=== PATIENT | female | born 1980 | race Native Hawaiian/Other Pacific Islander ===

== ENCOUNTER 2016-10-08 19:09 | Inpatient (IN) | payer OTHER ==
[2016-10-08] MEDS ORDERED: NORMAL SALINE 1000 ML 2,000 ML IV ONE (19:23)
[2016-10-08] MEDS ORDERED: KETOROLAC TROMETHAMINE INJ/PF 30 MG/1 ML SDV IV ONE (19:36)
--- NOTE | 2016-10-08 19:36 | ER Document Report ---
ED Respiratory Problem - General Stated Complaint: FEVER Time seen by provider: 19:36 Mode of Arrival: Medic Information source: Patient TRAVEL OUTSIDE OF THE [place] IN LAST 30 DAYS: No - HPI Patient complains to provider of: Cough, Short of breath Onset: Yesterday Duration: Worse/persistent Quality of pain: Achy Severity: Mild Pain Level: 2 Context: Hx asthma Short of Breath: Moderate Chest pain/discomfort: Tightness Cough: Productive Sputum amount: Small Sputum color: Yellow Sputum consistency: Mucoid Associated symptoms: Chills, Congestion, Cough, Fever, Short of breath Similar symptoms previously: Yes Notes: Patient is a 36-year-old female who presents to the emergency room via EMS for respiratory difficulty, productive cough 2 days with fever and body aches, family members report that she appears confused at times, patient has a history of lymphedema with bilateral lower extremities quite swollen and erythematous, she does report some increased pain and swelling with oozing wounds to her left knee - Related Data Allergies/Adverse Reactions: No Known Drug Allergies Allergy (Verified 03/10/16 08:43) Home Medications: Current Home Medications Eluxadoline [Viberzi] 75 mg PO DAILY 10/08/16 [History] Metformin HCl [Metformin HCl ER] 500 mg PO DAILY 10/08/16 [History] Morphine Sulfate [Morphine Ir 15 mg Tablet] 15 mg PO TID 10/08/16 [History] Nortriptyline HCl [Pamelor 25 Mg Capsule] 25 mg PO QHS 10/08/16 [History] Triamcinolone 1 applic TOP TID 10/08/16 [History] Zolpidem Tartrate [Ambien Cr] 12.5 mg PO QHS 10/08/16 [History] Past Medical History - General Information source: Patient, Emergency Med Personnel - Social History Smoking Status: Unknown if Ever Smoked Family History: Reviewed & Not Pertinent - Past Medical History Cardiac Medical History: Denies: Hx Coronary Artery Disease, Hx Heart Attack, Hx Hypertension Pulmonary Medical History: Reports: Hx Asthma Denies: Hx Bronchitis, Hx COPD, Hx Pneumonia Neurological Medical History: Denies: Hx Cerebrovascular Accident, Hx Seizures Musculoskeltal Medical History: Denies Hx Arthritis Past Surgical History: Reports: Hx Cholecystectomy. Denies: Hx Hysterectomy - Immunizations Hx Diphtheria, Pertussis, Tetanus Vaccination: Yes Hx Pneumococcal Vaccination: 05/22/12 Review of Systems - Review of Systems Constitutional: Fever EENT: See HPI Cardiovascular: No symptoms reported Respiratory: See HPI Gastrointestinal: No symptoms reported Genitourinary: No symptoms reported Female Genitourinary: No symptoms reported Musculoskeletal: See HPI Skin: See HPI Hematologic/Lymphatic: No symptoms reported Neurological/Psychological: No symptoms reported -: Yes All other systems reviewed and negative Physical Exam - Vital signs Vitals: Temp 103.5 F H 10/08/16 19:15 Interpretation: Hypotensive, Tachycardic, Febrile - General General appearance: Alert In distress: Mild - HEENT Head: Normocephalic, Atraumatic Eyes: Normal Conjunctiva: Normal Extraocular movements intact: Yes Eyelashes: Normal Pupils: PERRL Pharynx: Normal Neck: Normal - Respiratory Respiratory status: No respiratory distress Chest status: Nontender Breath sounds: Rhonchi Chest palpation: Normal - Cardiovascular Rhythm: Regular Heart sounds: Normal auscultation Murmur: No - Abdominal Inspection: Morbidly Obese Distension: No distension Bowel sounds: Normal Tenderness: Nontender Organomegaly: No organomegaly - Back Back: Normal, Nontender - Extremities General upper extremity: Normal inspection, Nontender, Normal color, Normal ROM , Normal temperature General lower extremity: Edema. No: Mckayla's sign Notes: Bilateral lower extremities are erythematous with significant lymphedema, increased warmth and tender to touch, left knee has losing scabbed wounds - Neurological Neuro grossly intact: Yes Cognition: Normal Orientation: AAOx4 Sebasti[place] Coma Scale Eye Opening: To Voice Sebastián Coma Scale Verbal: Oriented [place] Coma Scale Motor: Obeys Commands [place] Coma Scale Total: 14 Speech: Other - Slow to respond - Psychological Associated symptoms: Normal affect, Normal mood - Skin Skin Temperature: Warm Course - Re-evaluation Re-evalutation: 10/09/16 04:59 Patient with signs of sepsis, hypotensive and tachycardic on arrival, with leukocytosis and signs of pneumonia as well as lower extremity cellulitis, patient was stabilized and discussed with the hospitalist who agrees to admit for further evaluation and treatment - Vital Signs Vital signs: Temp Pulse Resp BP Pulse Ox 97.6 F 100 21 H 106/79 98 10/09/16 00:00 10/09/16 01:45 10/09/16 03:31 10/09/16 03:31 10/09/16 04:00 - Laboratory Result Diagrams: 10/08/16 19:45 10/08/16 19:45 Laboratory results interpreted by me: 10/08/16 10/08/16 10/08/16 19:45 19:45 19:45 WBC 17.6 H RDW 14.8 H Seg Neuts % (Manual) 90 H Band Neutrophils % 8 H Lymphocytes % (Manual) 0 L Monocytes % (Manual) 2 L Abs Neuts (Manual) 17.2 H Abs Lymphs (Manual) 0.0 L PT 17.7 H VBG pCO2 Sodium 130.3 L Potassium 3.0 L* Est GFR (Non-Af Amer) 50 L Glucose 129 H POC Glucose Calcium 7.9 L Magnesium AST 53 H Total Protein 5.5 L Albumin 2.4 L Urine Protein Urine Blood Ur Leukocyte Esterase 10/08/16 10/08/16 10/08/16 19:45 20:33 20:40 WBC RDW Seg Neuts % (Manual) Band Neutrophils % Lymphocytes % (Manual) Monocytes % (Manual) Abs Neuts (Manual) Abs Lymphs (Manual) PT VBG pCO2 34.3 L Sodium Potassium Est GFR (Non-Af Amer) Glucose POC Glucose 132 H Calcium Magnesium 1.3 L AST Total Protein Albumin Urine Protein Urine Blood Ur Leukocyte Esterase 10/08/16 22:10 WBC RDW Seg Neuts % (Manual) Band Neutrophils % Lymphocytes % (Manual) Monocytes % (Manual) Abs Neuts (Manual) Abs Lymphs (Manual) PT VBG pCO2 Sodium Potassium Est GFR (Non-Af Amer) Glucose POC Glucose Calcium Magnesium AST Total Protein Albumin Urine Protein 30 H Urine Blood SMALL H Ur Leukocyte Esterase TRACE H - Diagnostic Test Radiology reviewed: Image reviewed, Reports reviewed - EKG Interpretation by Me EKG shows normal: Sinus rhythm Rate: Tachycardia - Transfer of Care Care transferred to following provider: Dr. Horne Critical Care Note - Critical Care Note Total time excluding time spent on procedures (mins): 60 Comments: Patient hypotensive, tachycardic, febrile, with signs of sepsis, requiring admission to hospitalist service for further evaluation and treatment Discharge - Discharge Clinical Impression: Hypokalemia, Cellulitis and abscess of leg Pneumonia Qualifiers: Pneumonia type: due to unspecified organism Laterality: left Lung location: lower lobe of lung Qualified Code(s): J18.1 - Lobar pneumonia, unspecified organism Sepsis Qualifiers: Sepsis type: sepsis due to unspecified organism Qualified Code(s): A41.9 - Sepsis, unspecified organism Condition: Serious Disposition: ADMITTED INPATIENT Admitting Provider: Hospitalist Unit Admitted: ICU
[2016-10-08 20:06] LABS: HEMATOCRIT 37.5 % (36.0-47.0); HEMOGLOBIN 12.2 g/dL (12.0-15.5); HGB HCT DIFFERENCE -0.9; MEAN CORPUSCULAR HEMOGLOBIN 27.8 pg (27.0-33.4); MEAN CORPUSCULAR HGB CONC 32.6 g/dL (32.0-36.0); MEAN CORPUSCULAR VOLUME 85 fl (80-97); RED BLOOD COUNT 4.39 10^6/uL (3.72-5.28); RED CELL DISTRIBUTION WIDTH 14.8 % (11.5-14.0); WHITE BLOOD COUNT 17.6 10^3/uL (4.0-10.5)
[2016-10-08 20:18] LABS: PROTHROMBIN TIME 17.7 SEC (11.4-15.4)
[2016-10-08 20:23] LABS: ALANINE AMINOTRANSFERASE 41 U/L (9-52); ALBUMIN 2.4 g/dL (3.5-5.0); ALKALINE PHOSPHATASE 70 U/L (38-126); ANION GAP 7 (5-19); ASPARTATE AMINO TRANSFERASE 53 U/L (14-36); BLOOD UREA NITROGEN 15 mg/dL (7-20); CALCIUM 7.9 mg/dL (8.4-10.2); CARBON DIOXIDE 24 mmol/L (22-30); CHLORIDE 99 mmol/L (98-107); CREATININE RESULT 1.22 mg/dL (0.52-1.25); GLUCOSE 129 mg/dL (75-110); SODIUM 130.3 mmol/L (137-145); TOTAL PROTEIN 5.5 g/dL (6.3-8.2)
[2016-10-08 20:28] LABS: BAND NEUTROPHILS % (MANUAL) 8 % (3-5); BASOPHILS % (MANUAL) 0 % (0-2); EOSINOPHILS % (MANUAL) 0 % (0-6); LYMPHOCYTES % (MANUAL) 0 % (13-45); TOTAL CELLS COUNTED 100
[2016-10-08 20:31] LABS: ANISOCYTOSIS SLIGHT; OVALOCYTES 1+; POIKILOCYTOSIS 1+; RBC MORPHOLOGY COMMENT NORMO-CYTIC/CHROMIC; TEAR DROP CELLS 1+; TOXIC GRANULATION 1+; TOXIC VACUOLATION PRESENT
[2016-10-08 20:53] LABS: VENOUS BLOOD BASE EXCESS -3.6 mmol/L; VENOUS BLOOD HCO3 20.5 mmol/L (20-32); VENOUS BLOOD PCO2 34.3 mmHg (35-63); VENOUS BLOOD PH 7.4 (7.30-7.42)
[2016-10-08] MEDS ORDERED: AZITHROMYCIN INJ 500 MG VIAL IV ONE (21:15)
[2016-10-08] MEDS ORDERED: CEFTRIAXONE RTU 1 GM/D5W 50 ML IV ONE (21:15)
[2016-10-08] MEDS ORDERED: VANCOMYCIN HCL INJ 1000 MG VIAL IV ONE (22:00)
[2016-10-08] MEDS: POTASSI CL 20 MEQ/50 ML RIDER 50 ML IV SCH (22:16)
[2016-10-08] MEDS ORDERED: INSULIN LISPRO 100 UNIT/ML 3 ML VIAL SUBCUT PRN (22:23)
[2016-10-08] MEDS ORDERED: DEXTROSE 40% GEL 15 GM TUBE PO PRN ×2 (22:23)
[2016-10-08] MEDS ORDERED: DEXTROSE 5%-WATER 250 ML with NOREPINEPHRINE BITARTRATE 4 MG IV PRN ×2 (22:23)
[2016-10-08] MEDS ORDERED: DEXTROSE 50%-WATER 25 GM/50 ML DISP.SYRIN IV PRN ×2 (22:23)
[2016-10-08] MEDS ORDERED: GLUCAGON,HUMAN RECOMB 1 MG INJ IM PRN (22:23)
[2016-10-08] MEDS ORDERED: ONDANSETRON HCL INJ/PF 4 MG/2 ML SDV IV PRN (22:23)
[2016-10-08] MEDS ORDERED: NORMAL SALINE 1000 ML 1,000 ML IV SCH (22:30)
[2016-10-08] MEDS ORDERED: VANCOMYCIN HCL 0 MG in DEXTROSE 5%-WATER 250 ML IV NR (22:30)
[2016-10-08 22:53] LABS: APPEARANCE,URINE SLIGHTLY-CLOUDY; BILIRUBIN,URINE NEGATIVE (NEGATIVE); GLUCOSE, URINE NEGATIVE (NEGATIVE); KETONES,URINE NEGATIVE (NEGATIVE); LEUKOCYTE ESTERASE,URINE TRACE (NEGATIVE); NITRITE,URINE NEGATIVE (NEGATIVE); PROTEIN,URINE 30 mg/dL (NEGATIVE); URINE SPECIFIC GRAVITY 1.011; UROBILINOGEN,URINE NEGATIVE mg/dL (<2.0)
[2016-10-08] MEDS ORDERED: LEVOFLOXACIN 750 MG/D5W RTU 750 MG/150 ML RTUPB IV ONE (23:00)
[2016-10-09] MEDS: POTASSI CL 20 MEQ/50 ML RIDER 50 ML IV SCH (00:05)
[2016-10-09] MEDS: IPRATROPIUM/ALBUTEROL 0.5-2.5 MG/3 ML AMPUL NEB SCH ×4 (01:46→19:19)
[2016-10-09] MEDS ORDERED: MAGNESIUM SULFATE/D5W 1 GM/100 ML RTUPB IV SCH (05:15)
--- NOTE | 2016-10-09 05:24 | PDOC H&P ---
History of Present Illness Admission Date/PCP: 10/08/16 22:23 JOHN RUIZ MD Patient complains of: Fever and cough History of Present Illness: GIOVANNI GROVE is a 36 year old female with a past medical history of morbid obesity, chronic pain, bilateral lower extremity venous stasis and irritable bowel syndrome. Who had been her usual state of health until approximately 48 hours ago noted by family to have confusion fever and cough brought to the emergency room for evaluation she's found to have bilateral infiltrate on chest x-ray and marketed pain to her left knee with bilateral lower extremity venous stasis versus early cellulitis. Patient denies infectious contacts though believed to have had influenza vaccine this season. No pharyngitis, rhinorrhea or recent antibiotics. In the emergency room she is found to have altered mental status hypotension tachycardia and fever referred to the hospitalist for admission. Past Medical History Cardiac Medical History: Denies: Coronary Artery Disease, Myocardial Infarction, Hypertension Pulmonary Medical History: Reports: Asthma Denies: Bronchitis, Chronic Obstructive Pulmonary Disease (COPD), Pneumonia Neurological Medical History: Denies: Seizures Endocrine Medical History: Reports: Obesity GI Medical History: Reports: Other - Irritable bowel Musculoskeltal Medical History: Denies: Arthritis Skin Medical History: Reports: Other - Bilateral venous stasis Hematology: Denies: Anemia Past Surgical History Past Surgical History: Reports: Cholecystectomy Denies: Hysterectomy Social History Information Source: Relative Lives with: Family Smoking Status: Unknown if Ever Smoked Frequency of Alcohol Use: None Hx Recreational Drug Use: No Drugs: None Hx Prescription Drug Abuse: No - Advance Directive Resuscitation Status: Full Code Family History Family History: COPD, Hypertension Parental Family History Reviewed: Yes Children Family History Reviewed: Yes Sibling(s) Family History Reviewed.: Yes Medication/Allergy Home Medications: Albuterol Sulfate [Proair Hfa Inhalation Aerosol 8.5 gm Mdi] 1 puff IH ASDIR PRN 08/20/12 Gabapentin [Neurontin] 1,200 mg PO TID 03/10/16 Eluxadoline [Viberzi] 75 mg PO DAILY 10/08/16 Metformin HCl [Metformin HCl ER] 500 mg PO DAILY 10/08/16 Morphine Sulfate [Morphine Ir 15 mg Tablet] 15 mg PO TID 10/08/16 Nortriptyline HCl [Pamelor 25 Mg Capsule] 25 mg PO QHS 02/17/17 Triamcinolone 1 applic TOP TID 10/08/16 Zolpidem Tartrate [Ambien Cr] 12.5 mg PO QHS 10/08/16 Allergies/Adverse Reactions: No Known Drug Allergies Allergy (Verified 03/10/16 08:43) Review of Systems Constitutional: PRESENT: as per HPI, fatigue, fever(s), weakness Eyes: ABSENT: visual disturbances Ears: ABSENT: hearing changes Cardiovascular: ABSENT: chest pain, dyspnea on exertion, edema, orthropnea, palpitations Respiratory: PRESENT: cough, dyspnea, sputum Gastrointestinal: ABSENT: abdominal pain, constipation, diarrhea, hematemesis, hematochezia, nausea, vomiting Genitourinary: ABSENT: dysuria, hematuria Musculoskeletal: PRESENT: other - Right knee painful to palpation evaluating joint effusion challenged by super morbid obesity. ABSENT: joint swelling Integumentary: PRESENT: other - Marketed +3 bilateral edema with erythema and weeping Neurological: PRESENT: confusion. ABSENT: abnormal gait, abnormal speech, dizziness, focal weakness, syncope Psychiatric: ABSENT: anxiety, depression, homidical ideation, suicidal ideation Endocrine: ABSENT: cold intolerance, heat intolerance, polydipsia, polyuria Hematologic/Lymphatic: ABSENT: easy bleeding, easy bruising Physical Exam Vital Signs: Temp Pulse Resp BP Pulse Ox 97.6 F 100 21 H 106/79 98 10/09/16 00:00 10/09/16 01:45 10/09/16 03:31 10/09/16 03:31 10/09/16 04:00 General appearance: PRESENT: cooperative, mild distress, morbidly obese, well- developed, well-nourished Head exam: PRESENT: atraumatic, normocephalic Eye exam: PRESENT: conjunctiva pink, EOMI, PERRLA. ABSENT: scleral icterus Ear exam: PRESENT: normal external ear exam Mouth exam: PRESENT: dry mucosa, tongue midline Neck exam: ABSENT: carotid bruit, JVD, lymphadenopathy, thyromegaly Respiratory exam: PRESENT: accessory muscle use, crackles, decreased breath sounds, prolonged expiratory phas, rales, rhonchi, symmetrical, tachypnea. ABSENT: wheezes Cardiovascular exam: PRESENT: RRR. ABSENT: diastolic murmur, rubs, systolic murmur Pulses: PRESENT: normal dorsalis pedis pul Vascular exam: PRESENT: normal capillary refill GI/Abdominal exam: PRESENT: normal bowel sounds, soft. ABSENT: distended, guarding, mass, organolmegaly, rebound, tenderness Rectal exam: PRESENT: deferred Extremities exam: PRESENT: full ROM, joint swelling, pedal edema, tenderness - Right knee tender no obvious joint effusion though challenging to evaluate given super morbid obesity, chronic changes of venous stasis, +2 edema. ABSENT : calf tenderness, clubbing Neurological exam: PRESENT: alert, awake, oriented to person, oriented to place , oriented to time, oriented to situation, CN II-XII grossly intact. ABSENT: motor sensory deficit Psychiatric exam: PRESENT: appropriate affect, normal mood. ABSENT: homicidal ideation, suicidal ideation Skin exam: PRESENT: erythema, intact, warm, other - Lower extremity with bilateral +3 edema and weeping no open ulcer. ABSENT: cyanosis, rash Results Impressions: Chest X-Ray 10/08/16 20:36 IMPRESSION: PATCHY LEFT UPPER LOBE AIRSPACE DISEASE SUGGESTIVE OF PNEUMONIA. Assessment & Plan - Diagnosis (1) Sepsis Qualifiers: Sepsis type: sepsis due to unspecified organism Qualified Code(s): A41.9 - Sepsis, unspecified organism Plan: Secondary to pneumonia IV fluid challenge when necessary the Levophed (2) Pneumonia Qualifiers: Pneumonia type: due to unspecified organism Laterality: bilateral Lung location: lower lobe of lung Qualified Code(s): J18.9 - Pneumonia, unspecified organism Is this a current diagnosis for this admission?: YesPlan: Admitted to monitored bed with a pneumonia care set empiric antibiotics, albuterol Atrovent, Flonase, incentive spirometry and early mobilization, when necessary BiPAP (3) Morbid obesity with BMI of 60.0-69.9, adult Is this a current diagnosis for this admission?: YesPlan: Early mobilization consider dietitian consult (4) Cellulitis and abscess of leg Is this a current diagnosis for this admission?: YesPlan: Early cellulitis to the left leg empiric antibiotics initiated follow-up culture consideration of arthrocentesis if left knee is persistently painful (5) Hypokalemia Is this a current diagnosis for this admission?: YesPlan: Evaluate magnesium replete and recheck chemistry - Time Time Spent: 50 to 70 Minutes
[2016-10-09] MEDS ORDERED: MAGNESIUM SULFATE/D5W 1 GM/100 ML RTUPB IV ONE (07:02)
[2016-10-09] MEDS: HEPARIN SOD (PORCINE) 5,000 UNIT/ML 1 ML SYRINGE SUBCUT SCH ×3 (07:02→21:36)
[2016-10-09 07:30] LABS: HEMATOCRIT 39.7 % (36.0-47.0); HGB HCT DIFFERENCE -0.7; MEAN CORPUSCULAR HEMOGLOBIN 28.3 pg (27.0-33.4); MEAN CORPUSCULAR HGB CONC 32.6 g/dL (32.0-36.0); MEAN CORPUSCULAR VOLUME 87 fl (80-97); RED BLOOD COUNT 4.58 10^6/uL (3.72-5.28); RED CELL DISTRIBUTION WIDTH 14.7 % (11.5-14.0); WHITE BLOOD COUNT 19.7 10^3/uL (4.0-10.5)
[2016-10-09 07:44] LABS: ANION GAP 11 (5-19); BLOOD UREA NITROGEN 17 mg/dL (7-20); CALCIUM 7.7 mg/dL (8.4-10.2); CARBON DIOXIDE 22 mmol/L (22-30); CHLORIDE 102 mmol/L (98-107); CREATININE RESULT 1.02 mg/dL (0.52-1.25); GLUCOSE 210 mg/dL (75-110); SODIUM 135.3 mmol/L (137-145)
[2016-10-09 07:55] LABS: POTASSIUM 4.3 mmol/L (3.6-5.0)
[2016-10-09 08:10] LABS: BAND NEUTROPHILS % (MANUAL) 6 % (3-5); BASOPHILS % (MANUAL) 0 % (0-2); EOSINOPHILS % (MANUAL) 0 % (0-6); LYMPHOCYTES % (MANUAL) 2 % (13-45); TOTAL CELLS COUNTED 100
[2016-10-09 08:13] LABS: ANISOCYTOSIS SLIGHT; TOXIC GRANULATION 1+; TOXIC VACUOLATION PRESENT
[2016-10-09] MEDS: DOCUSATE SODIUM 100 MG CAPSULE PO SCH ×2 (09:16→17:04)
[2016-10-09] MEDS: GABAPENTIN 400 MG CAPSULE PO SCH ×3 (09:17→17:04)
--- NOTE | 2016-10-09 10:36 | EKG REPORT ---
SEVERITY:- ABNORMAL ECG - SINUS TACHYCARDIA FIRST DEGREE AV BLOCK LEFT ATRIAL ABNORMALITY : Confirmed by: Adri Calvert 09-Oct-2016 10:35:35
[2016-10-09 10:40] LABS: ARTERIAL BLOOD BASE EXCESS -1.9 mmol/L; ARTERIAL BLOOD O2 SATURATION 94.5 % (94-98)
[2016-10-09] MEDS ORDERED: PREDNISONE 20 MG TABLET PO ONE (11:00)
--- NOTE | 2016-10-09 13:00 | PDOC PROGRESS REPORT ---
Subjective Progress Note for:: 10/09/16 Subjective:: Still dyspneic this morning but states that she is somewhat feeling better Was uncomfortable with this the BiPAP Has a C Pap at home with her family will bring; she may use it while in the hospital No chest pain no abdominal pain nausea vomiting Pain in the lower extremities still persistent; and redness still present Physical Exam Vital Signs: Temp Pulse Resp BP Pulse Ox 98.4 F 107 H 24 H 91/38 L 94 10/09/16 07:56 10/09/16 08:55 10/09/16 08:55 10/09/16 07:56 10/09/16 08:55 Intake & Output 10/08/16 10/09/16 10/10/16 00:59 00:59 00:59 Intake Total 0 Balance 0 Weight 191.5 kg General appearance: PRESENT: mild distress, morbidly obese Head exam: PRESENT: atraumatic, normocephalic Eye exam: PRESENT: conjunctiva pink, EOMI, PERRLA. ABSENT: scleral icterus Neck exam: ABSENT: carotid bruit, JVD, lymphadenopathy, thyromegaly Respiratory exam: PRESENT: decreased breath sounds. ABSENT: rales, rhonchi, wheezes Cardiovascular exam: PRESENT: RRR. ABSENT: diastolic murmur, rubs, systolic murmur Pulses: PRESENT: normal dorsalis pedis pul Extremities exam: PRESENT: +2 edema - 2-4+ edema bilateral lateral legs left more than right Stasis dermatitis skin is violaceous but warm to touch, other Neurological exam: PRESENT: alert, awake, oriented to person, oriented to place , oriented to time, oriented to situation, CN II-XII grossly intact. ABSENT: motor sensory deficit Results Laboratory Results: 10/09/16 07:17 10/09/16 07:15 10/09/16 10/09/16 10/09/16 06:10 07:15 07:17 WBC 19.7 H RBC 4.58 Hgb 13.0 Hct 39.7 MCV 87 MCH 28.3 MCHC 32.6 RDW 14.7 H Plt Count 202 Seg Neutrophils % Not Reportable Lymphocytes % Not Reportable Monocytes % Not Reportable Eosinophils % Not Reportable Basophils % Not Reportable Absolute Neutrophils Not Reportable Absolute Lymphocytes Not Reportable Absolute Monocytes Not Reportable Absolute Eosinophils Not Reportable Absolute Basophils Not Reportable Carbonic Acid 1.04 L HCO3/H2CO3 Ratio 21:1 ABG pH 7.42 ABG pCO2 34.4 L ABG pO2 69.9 L ABG HCO3 21.9 ABG O2 Saturation 94.5 ABG Base Excess -1.9 FiO2 2L Sodium 135.3 L Potassium 4.3 D Chloride 102 Carbon Dioxide 22 Anion Gap 11 BUN 17 Creatinine 1.02 Est GFR ( Amer) > 60 Est GFR (Non-Af Amer) > 60 Glucose 210 H Calcium 7.7 L Impressions: Chest X-Ray 10/08/16 20:36 IMPRESSION: PATCHY LEFT UPPER LOBE AIRSPACE DISEASE SUGGESTIVE OF PNEUMONIA. Assessment & Plan - Diagnosis (1) Stasis dermatitis of both legs Is this a current diagnosis for this admission?: Yes (2) Bilateral lower leg cellulitis Is this a current diagnosis for this admission?: Yes (3) Morbid obesity with BMI of 60.0-69.9, adult Is this a current diagnosis for this admission?: Yes (4) Pneumonia Qualifiers: Pneumonia type: due to unspecified organism Laterality: bilateral Lung location: lower lobe of lung Qualified Code(s): J18.9 - Pneumonia, unspecified organism Is this a current diagnosis for this admission?: Yes (5) Sepsis Qualifiers: Sepsis type: sepsis due to unspecified organism Qualified Code(s): A41.9 - Sepsis, unspecified organism Is this a current diagnosis for this admission?: YesPlan: Secondary to cellulitis lower extremities and likely pneumonia continue antibiotic treatment We will treat the patient with Zosyn and Levaquin - Time Time Spent with patient: 25-34 minutes
[2016-10-09] MEDS ORDERED: MAG HYDROX/AL HYDROX/SIMETH SUSP 30 ML UDCUP PO PRN (15:07)
[2016-10-09] MEDS: PANTOPRAZOLE SODIUM 40 MG VIAL IV SCH (16:03)
[2016-10-09] MEDS: INSULIN LISPRO 100 UNIT/ML 3 ML VIAL SUBCUT PRN (16:27)
[2016-10-09] MEDS: PIPERACILLIN SODIUM/TAZOBACTAM 3.375 GM in NORMAL SALINE 100 ML IV SCH ×2 (17:04→23:57)
[2016-10-09] MEDS: ACETAMINOPHEN 325 MG TABLET PO PRN (21:36)
[2016-10-09] MEDS: NORTRIPTYLINE HCL 25 MG CAPSULE PO SCH (21:37)
[2016-10-09] MEDS: LEVOFLOXACIN 750 MG/D5W RTU 750 MG/150 ML RTUPB IV SCH (21:37)
[2016-10-10] MEDS: INSULIN LISPRO 100 UNIT/ML 3 ML VIAL SUBCUT PRN (00:45)
[2016-10-10] MEDS: IPRATROPIUM/ALBUTEROL 0.5-2.5 MG/3 ML AMPUL NEB SCH ×4 (01:44→19:40)
[2016-10-10] MEDS: PIPERACILLIN SODIUM/TAZOBACTAM 3.375 GM in NORMAL SALINE 100 ML IV SCH ×3 (05:29→17:37)
[2016-10-10] MEDS: HEPARIN SOD (PORCINE) 5,000 UNIT/ML 1 ML SYRINGE SUBCUT SCH ×3 (05:29→21:42)
[2016-10-10 07:00] LABS: ABSOLUTE LYMPHOCYTES (AUTO) 0.9 10^3/uL (0.5-4.7); ABSOLUTE MONOCYTES (AUTO) 1.4 10^3/uL (0.1-1.4); ABSOLUTE NEUT (AUTO) 14.7 10^3/uL (1.7-8.2); BASOPHILS % (AUTO) 0.2 % (0-2); EOSINOPHILS % (AUTO) 0.1 % (0-6); HEMATOCRIT 35.1 % (36.0-47.0); HEMOGLOBIN 11.4 g/dL (12.0-15.5); HGB HCT DIFFERENCE -0.9; LYMPHOCYTES % (AUTO) 5.3 % (13-45); MEAN CORPUSCULAR HEMOGLOBIN 28.1 pg (27.0-33.4); MEAN CORPUSCULAR HGB CONC 32.4 g/dL (32.0-36.0); MEAN CORPUSCULAR VOLUME 87 fl (80-97); MONOCYTES % (AUTO) 8.1 % (3-13); RED BLOOD COUNT 4.05 10^6/uL (3.72-5.28); RED CELL DISTRIBUTION WIDTH 15.2 % (11.5-14.0); SEGMENTED NEUTROPHILS % (AUTO) 86.3 % (42-78)
[2016-10-10 07:20] LABS: ANION GAP 9 (5-19); BLOOD UREA NITROGEN 19 mg/dL (7-20); CALCIUM 7.9 mg/dL (8.4-10.2); CARBON DIOXIDE 24 mmol/L (22-30); CHLORIDE 102 mmol/L (98-107); GLUCOSE 131 mg/dL (75-110); SODIUM 134.7 mmol/L (137-145)
[2016-10-10] MEDS: PREDNISONE 20 MG TABLET PO SCH (09:10)
[2016-10-10] MEDS: DOCUSATE SODIUM 100 MG CAPSULE PO SCH ×2 (09:10→17:36)
[2016-10-10] MEDS: GABAPENTIN 400 MG CAPSULE PO SCH ×3 (09:10→17:36)
[2016-10-10] MEDS ORDERED: VANCOMYCIN HCL 0 MG in DEXTROSE 5%-WATER 250 ML IV NR (10:15)
--- NOTE | 2016-10-10 12:52 | PDOC PROGRESS REPORT ---
Subjective Progress Note for:: 10/10/16 Subjective:: Patient is still complaining of severe pain in the lower extremities especially the left leg and the left knee She has no shortness of breath no chest pain no abdominal pain She still has a low-grade fever and white blood count is still elevated Patient weighs 450 pounds and is too heavy for CTA of the chest or VQ lung scan study( max weight 400 lbs ) The redness of the lower extremities still persistent and not improved Physical Exam Vital Signs: Temp Pulse Resp BP Pulse Ox 99.2 F 108 H 21 H 117/74 89 L 10/10/16 08:14 10/10/16 08:14 10/10/16 08:14 10/10/16 08:14 10/10/16 08:14 Intake & Output 10/09/16 10/10/16 10/11/16 00:59 00:59 00:59 Intake Total 1218 450 Balance 1218 450 Weight 191.5 kg 192.7 kg General appearance: PRESENT: mild distress, obese Head exam: PRESENT: atraumatic, normocephalic Eye exam: PRESENT: conjunctiva pink, EOMI, PERRLA. ABSENT: scleral icterus Neck exam: ABSENT: carotid bruit, JVD, lymphadenopathy, thyromegaly Respiratory exam: PRESENT: decreased breath sounds. ABSENT: rhonchi, wheezes Cardiovascular exam: PRESENT: RRR, tachycardia. ABSENT: diastolic murmur, rubs , systolic murmur Pulses: PRESENT: normal carotid pulses GI/Abdominal exam: PRESENT: normal bowel sounds, soft, other - obese. ABSENT: distended, guarding, mass, organolmegaly, rebound, tenderness Extremities exam: PRESENT: other - Lymphedema bilaterally Skin is red and warm to touch from the toes to mid thighs Neurological exam: PRESENT: alert, awake, oriented to person, oriented to place , oriented to time, oriented to situation, CN II-XII grossly intact. ABSENT: motor sensory deficit Results Laboratory Results: 10/10/16 05:59 10/10/16 05:59 10/10/16 10/10/16 05:59 05:59 WBC 17.0 H RBC 4.05 Hgb 11.4 L Hct 35.1 L MCV 87 MCH 28.1 MCHC 32.4 RDW 15.2 H Plt Count 190 Seg Neutrophils % 86.3 H Lymphocytes % 5.3 L Monocytes % 8.1 Eosinophils % 0.1 Basophils % 0.2 Absolute Neutrophils 14.7 H Absolute Lymphocytes 0.9 Absolute Monocytes 1.4 Absolute Eosinophils 0.0 Absolute Basophils 0.0 Sodium 134.7 L Potassium 4.0 Chloride 102 Carbon Dioxide 24 Anion Gap 9 BUN 19 Creatinine 0.90 Est GFR ( Amer) > 60 Est GFR (Non-Af Amer) > 60 Glucose 131 H Calcium 7.9 L Impressions: Chest X-Ray 10/08/16 20:36 IMPRESSION: PATCHY LEFT UPPER LOBE AIRSPACE DISEASE SUGGESTIVE OF PNEUMONIA. Assessment & Plan - Diagnosis (1) Stasis dermatitis of both legs Is this a current diagnosis for this admission?: Yes (2) Bilateral lower leg cellulitis Is this a current diagnosis for this admission?: YesPlan: Somehow it is not improving yet Patient is currently on Zosyn and Levaquin we will add vancomycin for broader coverage DVT studies would be performed tomorrow (3) Morbid obesity with BMI of 60.0-69.9, adult Is this a current diagnosis for this admission?: YesPlan: Patient is complaining to undergo bariatric surgery in the next couple months Unfortunately she is too heavy to have any imaging done And CTA of VQ scan lungs could not be performed (4) Pneumonia Qualifiers: Pneumonia type: due to unspecified organism Laterality: bilateral Lung location: lower lobe of lung Qualified Code(s): J18.9 - Pneumonia, unspecified organism Is this a current diagnosis for this admission?: YesPlan: Continue O2 supplementation Continue Levaquin (5) Sepsis Qualifiers: Sepsis type: sepsis due to unspecified organism Qualified Code(s): A41.9 - Sepsis, unspecified organism Is this a current diagnosis for this admission?: Yes - Time Time Spent with patient: To continue broad-spectrum antibiotics Added Lasix 20 mg IV every 12 to decrease fluid retention and edema lower extremities Pulmonary emboli could not be excluded; patient still has tachycardia but the hypoxemia is improved We will obtain DVT studies in a.m. and continue Lovenox prophylaxis Time Spent with patient: 25-34 minutes - We'll
[2016-10-10] MEDS ORDERED: FUROSEMIDE INJ/PF 20 MG/2 ML SDV IV ONE (13:00)
[2016-10-10] MEDS: VANCOMYCIN HCL 1,000 MG in DEXTROSE 5%-WATER 250 ML IV SCH ×2 (14:54→23:13)
[2016-10-10] MEDS: CLOTRIMAZOLE 1% CREAM 15 GM TP SCH ×2 (15:00→21:44)
[2016-10-10] MEDS: PANTOPRAZOLE SODIUM 40 MG VIAL IV SCH (15:20)
[2016-10-10] MEDS: NYSTATIN TOPICAL POWDER 15 GM TP SCH (17:37)
[2016-10-10] MEDS: NORTRIPTYLINE HCL 25 MG CAPSULE PO SCH (21:43)
[2016-10-10] MEDS: ACETAMINOPHEN 325 MG TABLET PO PRN (21:43)
[2016-10-10] MEDS: FUROSEMIDE INJ/PF 20 MG/2 ML SDV IV SCH (21:43)
[2016-10-10] MEDS: LEVOFLOXACIN 750 MG/D5W RTU 750 MG/150 ML RTUPB IV SCH (21:44)
[2016-10-11] MEDS: PIPERACILLIN SODIUM/TAZOBACTAM 3.375 GM in NORMAL SALINE 100 ML IV SCH ×4 (01:03→17:34)
[2016-10-11] MEDS: IPRATROPIUM/ALBUTEROL 0.5-2.5 MG/3 ML AMPUL NEB SCH ×4 (02:06→19:52)
[2016-10-11 05:30] LABS: ABSOLUTE LYMPHOCYTES (AUTO) 1.4 10^3/uL (0.5-4.7); ABSOLUTE MONOCYTES (AUTO) 1.6 10^3/uL (0.1-1.4); BASOPHILS % (AUTO) 0.3 % (0-2); HEMATOCRIT 33.1 % (36.0-47.0); HEMOGLOBIN 10.8 g/dL (12.0-15.5); HGB HCT DIFFERENCE -0.7; LYMPHOCYTES % (AUTO) 10.1 % (13-45); MEAN CORPUSCULAR HGB CONC 32.7 g/dL (32.0-36.0); MEAN CORPUSCULAR VOLUME 86 fl (80-97); MONOCYTES % (AUTO) 11.4 % (3-13); RED BLOOD COUNT 3.86 10^6/uL (3.72-5.28); RED CELL DISTRIBUTION WIDTH 14.8 % (11.5-14.0); SEGMENTED NEUTROPHILS % (AUTO) 78.2 % (42-78); WHITE BLOOD COUNT 14.1 10^3/uL (4.0-10.5)
[2016-10-11 05:54] LABS: ANION GAP 9 (5-19); BLOOD UREA NITROGEN 17 mg/dL (7-20); CALCIUM 8.2 mg/dL (8.4-10.2); CARBON DIOXIDE 26 mmol/L (22-30); CHLORIDE 101 mmol/L (98-107); CREATININE RESULT 0.96 mg/dL (0.52-1.25); GLUCOSE 126 mg/dL (75-110); POTASSIUM 3.2 mmol/L (3.6-5.0); SODIUM 136.3 mmol/L (137-145)
[2016-10-11] MEDS: HEPARIN SOD (PORCINE) 5,000 UNIT/ML 1 ML SYRINGE SUBCUT SCH ×3 (06:10→22:11)
[2016-10-11] MEDS: VANCOMYCIN HCL 1,000 MG in DEXTROSE 5%-WATER 250 ML IV SCH ×3 (06:10→21:53)
[2016-10-11] MEDS: CLOTRIMAZOLE 1% CREAM 15 GM TP SCH ×3 (06:11→22:11)
[2016-10-11] MEDS: MORPHINE SULFATE IR 15 MG TABLET PO PRN (08:01)
[2016-10-11] MEDS: DOCUSATE SODIUM 100 MG CAPSULE PO SCH ×2 (09:35→17:33)
[2016-10-11] MEDS: PREDNISONE 20 MG TABLET PO SCH (09:35)
[2016-10-11] MEDS: FUROSEMIDE INJ/PF 20 MG/2 ML SDV IV SCH ×2 (09:35→22:10)
[2016-10-11] MEDS: GABAPENTIN 400 MG CAPSULE PO SCH ×3 (09:36→17:33)
[2016-10-11] MEDS: NYSTATIN TOPICAL POWDER 15 GM TP SCH ×2 (09:39→17:34)
[2016-10-11 14:46] LABS: CREATININE RESULT 0.93 mg/dL (0.52-1.25)
[2016-10-11] MEDS: PANTOPRAZOLE SODIUM 40 MG VIAL IV SCH (16:03)
--- NOTE | 2016-10-11 17:22 | PDOC PROGRESS REPORT ---
Subjective Progress Note for:: 10/11/16 Subjective:: Patient is feeling somewhat better The legs is still extremely swollen but there is less redness the skin is not as warm to touch She did have a fever this morning of 101 No respiratory distress and no chest pain Physical Exam Vital Signs: Temp Pulse Resp BP Pulse Ox 98.5 F 97 18 119/56 L 94 10/11/16 15:56 10/11/16 15:56 10/11/16 15:56 10/11/16 15:56 10/11/16 15:56 Intake & Output 10/10/16 10/11/16 10/12/16 00:59 00:59 00:59 Intake Total 1218 1708 970 Balance 1218 1708 970 Weight 191.5 kg 192.7 kg 192.8 kg General appearance: PRESENT: no acute distress, morbidly obese Head exam: PRESENT: atraumatic, normocephalic Eye exam: PRESENT: conjunctiva pink, EOMI, PERRLA. ABSENT: scleral icterus Neck exam: ABSENT: carotid bruit, JVD, lymphadenopathy, thyromegaly Respiratory exam: PRESENT: clear to auscultation zahira. ABSENT: rales, rhonchi, wheezes Pulses: PRESENT: normal dorsalis pedis pul GI/Abdominal exam: PRESENT: normal bowel sounds, soft. ABSENT: distended, guarding, mass, organolmegaly, rebound, tenderness Extremities exam: PRESENT: other - Lymphedema bilaterally Redness of the skin has decreased Skin is violaceous color Decreased tenderness on palpation Neurological exam: PRESENT: alert, awake, oriented to person, oriented to place , oriented to time, oriented to situation, CN II-XII grossly intact. ABSENT: motor sensory deficit Psychiatric exam: PRESENT: appropriate affect, normal mood. ABSENT: homicidal ideation, suicidal ideation Results Laboratory Results: 10/11/16 05:04 10/11/16 14:05 10/11/16 10/11/16 10/11/16 05:04 05:04 14:05 WBC 14.1 H RBC 3.86 Hgb 10.8 L Hct 33.1 L MCV 86 MCH 28.0 MCHC 32.7 RDW 14.8 H Plt Count 198 Seg Neutrophils % 78.2 H Lymphocytes % 10.1 L Monocytes % 11.4 Eosinophils % 0.0 Basophils % 0.3 Absolute Neutrophils 11.0 H Absolute Lymphocytes 1.4 Absolute Monocytes 1.6 H Absolute Eosinophils 0.0 Absolute Basophils 0.0 Sodium 136.3 L Potassium 3.2 L Chloride 101 Carbon Dioxide 26 Anion Gap 9 BUN 17 Creatinine 0.96 0.93 Est GFR ( Amer) > 60 > 60 Est GFR (Non-Af Amer) > 60 > 60 Glucose 126 H Calcium 8.2 L Impressions: Chest X-Ray 10/08/16 20:36 IMPRESSION: PATCHY LEFT UPPER LOBE AIRSPACE DISEASE SUGGESTIVE OF PNEUMONIA. Assessment & Plan - Diagnosis (1) Stasis dermatitis of both legs Is this a current diagnosis for this admission?: Yes (2) Bilateral lower leg cellulitis Is this a current diagnosis for this admission?: YesPlan: Is improving somewhat We will continue broad-spectrum antibiotic management keep legs elevated at all times (3) Morbid obesity with BMI of 60.0-69.9, adult Is this a current diagnosis for this admission?: Yes (4) Pneumonia Qualifiers: Pneumonia type: due to unspecified organism Laterality: bilateral Lung location: lower lobe of lung Qualified Code(s): J18.9 - Pneumonia, unspecified organism Is this a current diagnosis for this admission?: YesPlan: Left upper lobe infiltrate Continue antibiotics Patient has no significant hypoxemia and or pleuritic chest pain (5) Sepsis Qualifiers: Sepsis type: sepsis due to unspecified organism Qualified Code(s): A41.9 - Sepsis, unspecified organism Is this a current diagnosis for this admission?: YesPlan: With fever leukocytosis 10/08/16 10/09/16 10/10/16 19:45 07:17 05:59 WBC 17.6 H 19.7 H 17.0 H 10/11/16 05:04 WBC 14.1 H Leukocytosis is improving somewhat Sepsis secondary to pneumonia and cellulitis lower extremities is improving Continue IV antibiotics until the cellulitis is clinically improved - Time Time Spent with patient: Pending reports echocardiogram and DVT studies lower extremities Time Spent with patient: 25-34 minutes Within: within 36 hours
[2016-10-11] MEDS: INSULIN LISPRO 100 UNIT/ML 3 ML VIAL SUBCUT PRN (17:49)
--- NOTE | 2016-10-11 19:40 | XCELERA REPORT ---
[address] [address] Transthoracic Echocardiogram Report Name: GIOVANNI GROVE Age: 36 yrs Gender: Female : 1980 Patient Status: Inpatient Patient Location: 3S\S\327\S\A Study Date: 10/11/2016 09:09 AM Height: 63 in Weight: 424 lb BSA: 2.7 m2 Procedure: A two-dimensional transthoracic echocardiogram with color flow and Doppler was performed. Study Quality: Technically suboptimal. Poor endocardial and doppler interogation. Reason For Study: SOB tachycardia History: Shortness of breath. Tachycardia. Ordering Physician: ISABELLA TUCKER Performed By: Edie David Interpretation Summary Study Quality: Technically suboptimal. Poor endocardial and doppler interogation. Probably normal LV sie.No defenite LVH.No defenite wall motion abnormality.LVEF is > than 60%. Probably normal LA sizee. There is no evidence of mitral valve prolapse. There is no mitral valve stenosis. Probably no MR. There is no aortic valve stenosis There is no LVOT obstruction. No aortic regurgitation is present. There is no tricuspid stenosis. There is a mild amount of tricuspid regurgitation There is mild pulmonary hypertension by echo RVSP is 38 mm of Hg , with RA mean of 10. There is no pericardial effusion. MMode/2D Measurements \T\ Calculations RVDd: 2.8 cm LVIDd: 5.2 cm FS: 33.7 % Ao root diam: 2.6 cm IVSd: 1.1 cm LVIDs: 3.4 cm EDV(Teich): 128.1 ml LVPWd: 1.1 cm ESV(Teich): 48.6 ml Ao root area: 5.3 cm2 EF(Teich): 62.1 % LA dimension: 3.3 cm Doppler Measurements \T\ Calculations MV E max kale: MV P1/2t max kale: Ao V2 max: LV V1 max P.1 cm/sec 107.6 cm/sec 184.6 cm/sec 7.2 mmHg MV A max kale: MV P1/2t: 60.9 msec Ao max PG: LV V1 max: 58.7 cm/sec 13.6 mmHg 133.8 cm/sec MV E/A: 1.8 MVA(P1/2t): 3.6 cm2 MV dec slope: 517.6 cm/sec2 PA V2 max: TR max kale: 92.3 cm/sec 262.8 cm/sec PA max PG: TR max P.6 mmHg 3.4 mmHg Left Ventricle Probably normal LV sie.No defenite LVH.No defenite wall motion abnormality.LVEF is > than 60%. Doppler measurements suggest normal left ventricular diastolic function. Right Ventricle The right ventricle is not well visualized secondary to technical limitations. Atria Right atrium not well visualized secondary to technical limitations. Probably normal LA sizee. Mitral Valve There is no evidence of mitral valve prolapse. There is no vegetation seen on the mitral valve. There is no mitral valve stenosis. Probably no MR. Aortic Valve There is no aortic valve stenosis. There is no LVOT obstruction. No aortic regurgitation is present. Tricuspid Valve There is no tricuspid stenosis. There is a mild amount of tricuspid regurgitation. There is mild pulmonary hypertension by echo. RVSP is 38 mm of Hg , with RA mean of 10. Pulmonic Valve The pulmonic valve is not well visualized. Great Vessels The aortic root is not well visualized. Effusions There is no pericardial effusion. : ISABELLA UTCKER > Bernadine Carrasquillo
[2016-10-11] MEDS: NORTRIPTYLINE HCL 25 MG CAPSULE PO SCH (22:12)
[2016-10-12] MEDS: LEVOFLOXACIN 750 MG/D5W RTU 750 MG/150 ML RTUPB IV SCH ×2 (00:08→22:00)
[2016-10-12] MEDS: PIPERACILLIN SODIUM/TAZOBACTAM 3.375 GM in NORMAL SALINE 100 ML IV SCH ×3 (00:58→11:04)
[2016-10-12] MEDS: MORPHINE SULFATE IR 15 MG TABLET PO PRN (02:09)
[2016-10-12] MEDS: IPRATROPIUM/ALBUTEROL 0.5-2.5 MG/3 ML AMPUL NEB SCH ×4 (02:15→20:38)
[2016-10-12] MEDS: HEPARIN SOD (PORCINE) 5,000 UNIT/ML 1 ML SYRINGE SUBCUT SCH ×3 (05:02→22:03)
[2016-10-12] MEDS: CLOTRIMAZOLE 1% CREAM 15 GM TP SCH ×3 (05:03→22:00)
[2016-10-12] MEDS: VANCOMYCIN HCL 1,000 MG in DEXTROSE 5%-WATER 250 ML IV SCH ×3 (05:04→22:02)
[2016-10-12] MEDS: PREDNISONE 20 MG TABLET PO SCH (09:44)
[2016-10-12] MEDS: DOCUSATE SODIUM 100 MG CAPSULE PO SCH ×2 (09:44→18:07)
[2016-10-12] MEDS: GABAPENTIN 400 MG CAPSULE PO SCH ×3 (09:45→18:06)
[2016-10-12] MEDS: FUROSEMIDE INJ/PF 20 MG/2 ML SDV IV SCH ×3 (09:45→22:03)
[2016-10-12] MEDS: NYSTATIN TOPICAL POWDER 15 GM TP SCH ×2 (09:49→18:09)
[2016-10-12] MEDS ORDERED: OXYCODONE HCL SR 10 MG TABLET PO ONE (12:00)
--- NOTE | 2016-10-12 13:52 | XCELERA REPORT ---
[address] [address] Lower Extremity Venous Evaluation Name: GIOVANNI GROVE Age: 36 yrs Gender: Female : 1980 Patient Status: Inpatient Patient Location: 3S\S\327\S\A Study Date: 10/11/2016 09:43 AM Procedure: Color flow and duplex imaging bilaterally of the veins of the lower extremities as well as the Common Femoral veins. Reason For Study: edema Ordering Physician: ISABELLA TUCKER Performed By: Edie David Right Sided Venous Evaluation Normal vessel filling wall to wall, compression and augmentation as well as Colour flow down to the infrageniculate veins. Difficult to image veins due to body habitus. Left Sided Venous Evaluation Normal vessel filling wall to wall, compression and augmentation as well as Colour flow down to the infrageniculate veins. Difficult to image veins due to body habitus. Interpretation Summary No duplex evidence of DVT or obstruction in the bilateral lower extremities. Difficult study due to body habitus. : ISABELLA TUCKER > Judd Stephens
--- NOTE | 2016-10-12 15:45 | PDOC PROGRESS REPORT ---
Subjective Progress Note for:: 10/12/16 Subjective:: Reason for visit: Follow-up pneumonia, sepsis, venous stasis cellulitis Hospital course: Per H&P "GIOVANNI GROVE is a 36 year old female with a past medical history of morbid obesity, chronic pain, bilateral lower extremity venous stasis and irritable bowel syndrome. Who had been her usual state of health until approximately 48 hours ago noted by family to have confusion fever and cough brought to the emergency room for evaluation she's found to have bilateral infiltrate on chest x-ray and marketed pain to her left knee with bilateral lower extremity venous stasis versus early cellulitis. Patient denies infectious contacts though believed to have had influenza vaccine this season. No pharyngitis, rhinorrhea or recent antibiotics. In the emergency room she is found to have altered mental status hypotension tachycardia and fever referred to the hospitalist for admission. " Patient admitted and placed on broad-spectrum antibiotics with Levaquin, Zosyn, vancomycin and has shown minimal improvement in her cellulitis. She was attempted to diurese with Lasix twice a day and has shown some improvement in the lower extremity swelling but not much improvement in the cellulitis. She underwent echocardiogram that shows well-preserved left ventricular function with an EF of 60%, no significant wall motion or valvular abnormalities. She underwent venous Dopplers of bilateral lower extremities it was a technically difficult study due to body habitus but showed no evidence for DVT in either lower extremity. Subjective: She continues to complain of generalized pain stating that the current narcotic regimen we have her on is insufficient. She reports taking OxyContin extended release 15 mg every 8 hours with supplemental intermediate release 15 mg every 8 hours as needed with 3600 mg of gabapentin on a daily basis. She denies chest pain, palpitations, nausea, vomiting, diarrhea, fevers or chills. ROS: per HPI plus a total of 10 systems reviewed, pertinent positives and negatives noted above, remaining systems negative. Physical Exam Vital Signs: Temp Pulse Resp BP Pulse Ox 98.4 F 93 18 104/41 L 96 10/12/16 12:30 10/12/16 14:33 10/12/16 14:33 10/12/16 12:30 10/12/16 12:30 Intake & Output 10/11/16 10/12/16 10/13/16 06:59 06:59 06:59 Intake Total 2228 2525 780 Balance 2228 2525 780 Weight 192.8 kg 192.8 kg EXAM GENERAL: NAD; well developed, well nourished; morbid obese; alert and oriented to person, place, time, situation HEENT: normocephalic, atraumatic; no conjunctival injection, no scleral icterus ; oral mucosa moist; RESPIRATORY: no accessory muscle use, no increased WOB, good air entry bilaterally; no wheezes, rales, rhonchi; bibasilar inspiratory crackles CARDIO: no JVD; RRR; no systolic murmur; no tachycardia GI: Massive pannus, soft; nondistended; normal bowel sounds; no hepato spleno megaly; no rebound, rigidity, guarding; nontender VASCULAR: no carotid bruit; no abdominal bruit; no pallor; 2+ radial, nonpalpable DP pulse; diminished capillary refill EXTREMITIES: Tender to palpation bilateral; chronic acrocyanotic changes, pretibial excoriations left greater than right, bilateral lower extremities erythematous and hot to the touch PSYCH: normal affect, normal mood SKIN: warm; moist; no petechiae; no telengectasias; no jaundice; Results Laboratory Results: 10/11/16 05:04 10/11/16 14:05 Labs reviewed,tachycardia change. Impressions: Chest X-Ray 10/08/16 20:36 IMPRESSION: PATCHY LEFT UPPER LOBE AIRSPACE DISEASE SUGGESTIVE OF PNEUMONIA. Status: Imported from PACS - Report reviewed including venous Dopplers and echocardiogram Assessment & Plan - Diagnosis (1) Bilateral lower leg cellulitis Is this a current diagnosis for this admission?: YesPlan: Very slow to improve, continue broad-spectrum antibiotics and increase attempts at diuresis to lessen the amount of swelling stretch on the tenuous epidermal layer (2) Hypokalemia Is this a current diagnosis for this admission?: YesPlan: Mild, check again in the morning and replace. (3) Morbid obesity with BMI of 60.0-69.9, adult Is this a current diagnosis for this admission?: YesPlan: Counseled regarding weight loss. (4) Pneumonia Qualifiers: Pneumonia type: due to unspecified organism Laterality: bilateral Lung location: lower lobe of lung Qualified Code(s): J18.9 - Pneumonia, unspecified organism Is this a current diagnosis for this admission?: YesPlan: Community-acquired, no indication for Zosyn at this time as there is no history of Pseudomonas or resistant organisms. We'll continue Levaquin and vancomycin. (5) Sepsis Qualifiers: Sepsis type: sepsis due to unspecified organism Qualified Code(s): A41.9 - Sepsis, unspecified organism Is this a current diagnosis for this admission?: YesPlan: Stable. (6) Chronic pain disorder Is this a current diagnosis for this admission?: YesPlan: Adjust analgesic regimen. (7) Stasis dermatitis of both legs Is this a current diagnosis for this admission?: YesPlan: Decrease Lasix interval to every 8 and monitor for response. Encourage patient to keep elevated as much as tolerated. - Time Time Spent with patient: 35 or more minutes Medications reviewed and adjusted accordingly: Yes Anticipated discharge: Home Within: within 72 hours
[2016-10-12] MEDS: INSULIN LISPRO 100 UNIT/ML 3 ML VIAL SUBCUT PRN (18:05)
[2016-10-12] MEDS: OXYCODONE HCL SR 10 MG TABLET PO SCH (22:03)
[2016-10-12] MEDS: NORTRIPTYLINE HCL 25 MG CAPSULE PO SCH (22:04)
[2016-10-12] MEDS: POTASSIUM CHLORIDE 10 MEQ TABLET.SA PO SCH (22:04)
[2016-10-13] MEDS: IPRATROPIUM/ALBUTEROL 0.5-2.5 MG/3 ML AMPUL NEB SCH ×4 (02:25→20:34)
[2016-10-13] MEDS: MORPHINE SULFATE IR 15 MG TABLET PO PRN (04:41)
[2016-10-13] MEDS: VANCOMYCIN HCL 1,000 MG in DEXTROSE 5%-WATER 250 ML IV SCH ×3 (05:57→21:27)
[2016-10-13] MEDS: HEPARIN SOD (PORCINE) 5,000 UNIT/ML 1 ML SYRINGE SUBCUT SCH ×3 (05:58→21:27)
[2016-10-13] MEDS: FUROSEMIDE INJ/PF 20 MG/2 ML SDV IV SCH ×3 (05:58→21:27)
[2016-10-13] MEDS: CLOTRIMAZOLE 1% CREAM 15 GM TP SCH ×3 (05:58→21:29)
[2016-10-13 07:34] LABS: ANION GAP 10 (5-19); BLOOD UREA NITROGEN 16 mg/dL (7-20); CALCIUM 8.8 mg/dL (8.4-10.2); CARBON DIOXIDE 30 mmol/L (22-30); CHLORIDE 97 mmol/L (98-107); CREATININE RESULT 0.82 mg/dL (0.52-1.25); GLUCOSE 101 mg/dL (75-110); POTASSIUM 3.4 mmol/L (3.6-5.0); SODIUM 136.7 mmol/L (137-145)
[2016-10-13] MEDS ORDERED: BISACODYL 5 MG TABEC PO PRN (10:00)
[2016-10-13] MEDS: NYSTATIN TOPICAL POWDER 15 GM TP SCH ×2 (10:42→17:30)
[2016-10-13] MEDS: OXYCODONE HCL SR 10 MG TABLET PO SCH ×2 (10:46→21:29)
[2016-10-13] MEDS: POTASSIUM CHLORIDE 10 MEQ TABLET.SA PO SCH ×2 (10:48→21:29)
[2016-10-13] MEDS: GABAPENTIN 400 MG CAPSULE PO SCH ×3 (10:48→17:27)
[2016-10-13] MEDS: DOCUSATE SODIUM 100 MG CAPSULE PO SCH ×2 (10:48→17:27)
[2016-10-13] MEDS: PREDNISONE 20 MG TABLET PO SCH (10:49)
--- NOTE | 2016-10-13 12:45 | PDOC PROGRESS REPORT ---
Subjective Progress Note for:: 10/13/16 Subjective:: Reason for visit: Follow-up pneumonia, sepsis, venous stasis cellulitis Hospital course: Per H&P "GIOVANNI GROVE is a 36 year old female with a past medical history of morbid obesity, chronic pain, bilateral lower extremity venous stasis and irritable bowel syndrome. Who had been her usual state of health until approximately 48 hours ago noted by family to have confusion fever and cough brought to the emergency room for evaluation she's found to have bilateral infiltrate on chest x-ray and marketed pain to her left knee with bilateral lower extremity venous stasis versus early cellulitis. Patient denies infectious contacts though believed to have had influenza vaccine this season. No pharyngitis, rhinorrhea or recent antibiotics. In the emergency room she is found to have altered mental status hypotension tachycardia and fever referred to the hospitalist for admission. " Patient admitted and placed on broad-spectrum antibiotics with Levaquin, Zosyn, vancomycin and has shown minimal improvement in her cellulitis. She was attempted to diurese with Lasix twice a day and has shown some improvement in the lower extremity swelling but not much improvement in the cellulitis. She underwent echocardiogram that shows well-preserved left ventricular function with an EF of 60%, no significant wall motion or valvular abnormalities. She underwent venous Dopplers of bilateral lower extremities it was a technically difficult study due to body habitus but showed no evidence for DVT in either lower extremity. Subjective: She states that her condition has improved, particularly with increase in her narcotics. now reports no BM for last 4 days, usually has diarrhea dominant IBS with multiple BMs daily. she denies abd pain, n/v, chest pain, fevers, chills. ROS: per HPI plus a total of 10 systems reviewed, pertinent positives and negatives noted above, remaining systems negative. Physical Exam Vital Signs: Temp Pulse Resp BP Pulse Ox 97.6 F 77 16 94/53 L 96 10/13/16 07:22 10/13/16 08:22 10/13/16 08:22 10/13/16 07:22 10/13/16 07:22 Intake & Output 10/12/16 10/13/16 10/14/16 06:59 06:59 06:59 Intake Total 2525 3270 Balance 2525 3270 Weight 192.8 kg 187.5 kg EXAM GENERAL: NAD; well developed, well nourished; morbid obese; alert and oriented to person, place, time, situation HEENT: normocephalic, atraumatic; no conjunctival injection, no scleral icterus ; oral mucosa moist; RESPIRATORY: no accessory muscle use, no increased WOB, good air entry bilaterally; no wheezes, rales, rhonchi; bibasilar inspiratory crackles, some improved CARDIO: no JVD; RRR; no systolic murmur; no tachycardia GI: Massive pannus, soft; nondistended; normal bowel sounds; no hepato spleno megaly; no rebound, rigidity, guarding; nontender VASCULAR: no carotid bruit; no abdominal bruit; no pallor; 2+ radial, nonpalpable DP pulse; diminished capillary refill EXTREMITIES: Tender to palpation bilateral; chronic acrocyanotic changes, pretibial excoriations left greater than right, bilateral lower extremities erythematous and warm to the touch, some improved PSYCH: normal affect, normal mood SKIN: warm; moist; no petechiae; no telengectasias; no jaundice; Results Laboratory Results: 10/11/16 05:04 10/13/16 06:22 10/13/16 06:22 Sodium 136.7 L Potassium 3.4 L Chloride 97 L Carbon Dioxide 30 Anion Gap 10 BUN 16 Creatinine 0.82 Est GFR ( Amer) > 60 Est GFR (Non-Af Amer) > 60 Glucose 101 Calcium 8.8 Magnesium 2.0 Labs reviewed, leukocytosis improving, electrolytes improving Assessment & Plan - Diagnosis (1) Bilateral lower leg cellulitis Is this a current diagnosis for this admission?: YesPlan: Very slow to improve, continue broad-spectrum antibiotics and showing some improvement with increased attempts at diuresis to lessen the amount of swelling stretch on the tenuous epidermal layer. Continue current level of diuretics for another day, her weight is just starting to show a downward trend. (2) Hypokalemia Is this a current diagnosis for this admission?: YesPlan: Mild, check again in the morning and replace. (3) Morbid obesity with BMI of 60.0-69.9, adult Is this a current diagnosis for this admission?: YesPlan: Counseled regarding weight loss. (4) Pneumonia Qualifiers: Pneumonia type: due to unspecified organism Laterality: bilateral Lung location: lower lobe of lung Qualified Code(s): J18.9 - Pneumonia, unspecified organism Is this a current diagnosis for this admission?: YesPlan: Community-acquired, no indication for Zosyn at this time as there is no history of Pseudomonas or resistant organisms. We'll continue Levaquin and vancomycin. (5) Sepsis Qualifiers: Sepsis type: sepsis due to unspecified organism Qualified Code(s): A41.9 - Sepsis, unspecified organism Is this a current diagnosis for this admission?: YesPlan: Stable. (6) Chronic pain disorder Is this a current diagnosis for this admission?: YesPlan: Improved with Adjusted analgesic regimen. (7) Stasis dermatitis of both legs Is this a current diagnosis for this admission?: YesPlan: Continue current care. Encourage patient to keep elevated as much as tolerated. - Time Time Spent with patient: 25-34 minutes Medications reviewed and adjusted accordingly: Yes Anticipated discharge: Home Within: within 72 hours
[2016-10-13] MEDS: INSULIN LISPRO 100 UNIT/ML 3 ML VIAL SUBCUT PRN (17:28)
[2016-10-13] MEDS ORDERED: LANSOPRAZOLE 30 MG TAB.RAP.DR PO ONE (18:12)
[2016-10-13] MEDS ORDERED: LACTULOSE SYRUP 20 GM/30 ML UDCUP PO ONE (19:00)
[2016-10-13] MEDS: LEVOFLOXACIN 750 MG TABLET PO SCH (21:27)
[2016-10-13] MEDS: LACTOBACILLUS ACIDOPHILUS 250 MG TAB PO SCH (21:28)
[2016-10-13] MEDS: NORTRIPTYLINE HCL 25 MG CAPSULE PO SCH (21:30)
[2016-10-14] MEDS: IPRATROPIUM/ALBUTEROL 0.5-2.5 MG/3 ML AMPUL NEB SCH ×4 (02:33→20:32)
[2016-10-14] MEDS: VANCOMYCIN HCL 1,000 MG in DEXTROSE 5%-WATER 250 ML IV SCH (05:33)
[2016-10-14] MEDS: CLOTRIMAZOLE 1% CREAM 15 GM TP SCH ×2 (05:33→14:39)
[2016-10-14] MEDS: MORPHINE SULFATE IR 15 MG TABLET PO PRN ×2 (05:33→19:10)
[2016-10-14] MEDS: FUROSEMIDE INJ/PF 20 MG/2 ML SDV IV SCH (05:34)
[2016-10-14] MEDS: HEPARIN SOD (PORCINE) 5,000 UNIT/ML 1 ML SYRINGE SUBCUT SCH ×3 (05:34→21:17)
[2016-10-14 07:19] LABS: HEMOGLOBIN 11.6 g/dL (12.0-15.5); HGB HCT DIFFERENCE -0.2; MEAN CORPUSCULAR HEMOGLOBIN 28.2 pg (27.0-33.4); MEAN CORPUSCULAR HGB CONC 33.1 g/dL (32.0-36.0); MEAN CORPUSCULAR VOLUME 85 fl (80-97); RED BLOOD COUNT 4.11 10^6/uL (3.72-5.28); RED CELL DISTRIBUTION WIDTH 14.8 % (11.5-14.0); WHITE BLOOD COUNT 14.7 10^3/uL (4.0-10.5)
[2016-10-14 07:37] LABS: ANION GAP 11 (5-19); BLOOD UREA NITROGEN 18 mg/dL (7-20); CALCIUM 9.1 mg/dL (8.4-10.2); CARBON DIOXIDE 32 mmol/L (22-30); CHLORIDE 97 mmol/L (98-107); CREATININE RESULT 0.79 mg/dL (0.52-1.25); GLUCOSE 115 mg/dL (75-110); POTASSIUM 3.2 mmol/L (3.6-5.0); SODIUM 140.3 mmol/L (137-145)
[2016-10-14] MEDS: POTASSIUM CHLORIDE 10 MEQ TABLET.SA PO SCH ×2 (10:39→21:18)
[2016-10-14] MEDS: OXYCODONE HCL SR 10 MG TABLET PO SCH ×2 (10:39→21:20)
[2016-10-14] MEDS: LACTOBACILLUS ACIDOPHILUS 250 MG TAB PO SCH ×2 (10:39→21:19)
[2016-10-14] MEDS: DOCUSATE SODIUM 100 MG CAPSULE PO SCH ×2 (10:39→19:10)
[2016-10-14] MEDS: GABAPENTIN 400 MG CAPSULE PO SCH ×3 (10:39→19:10)
[2016-10-14] MEDS: PREDNISONE 20 MG TABLET PO SCH (10:40)
[2016-10-14] MEDS: LANSOPRAZOLE 30 MG TAB.RAP.DR PO SCH (10:40)
[2016-10-14] MEDS: NYSTATIN TOPICAL POWDER 15 GM TP SCH ×2 (10:40→19:12)
--- NOTE | 2016-10-14 16:22 | PDOC PROGRESS REPORT ---
Subjective Progress Note for:: 10/14/16 Physical Exam Vital Signs: Temp Pulse Resp BP Pulse Ox 97.8 F 84 18 92/66 L 90 L 10/14/16 07:04 10/14/16 14:00 10/14/16 13:55 10/14/16 07:04 10/14/16 13:55 Intake & Output 10/13/16 10/14/16 10/15/16 06:59 06:59 06:59 Intake Total 3270 2260 Balance 3270 2260 Weight 187.5 kg 185.1 kg EXAM GENERAL: NAD; well developed, well nourished; morbid obese; alert and oriented to person, place, time, situation HEENT: normocephalic, atraumatic; no conjunctival injection, no scleral icterus ; oral mucosa moist; RESPIRATORY: no accessory muscle use, no increased WOB, good air entry bilaterally; no wheezes, rales, rhonchi; bibasilar inspiratory crackles resolved CARDIO: no JVD; RRR; no systolic murmur; no tachycardia GI: Massive pannus, soft; nondistended; normal bowel sounds; nontender VASCULAR: no carotid bruit; no abdominal bruit; no pallor; 2+ radial, nonpalpable DP pulse; diminished capillary refill EXTREMITIES: Tender to palpation bilateral but improved; chronic acrocyanotic changes, pretibial excoriations left greater than right with drying scabs, bilateral lower extremities not as erythematous or warm to the touch, much improved PSYCH: normal affect, normal mood SKIN: warm; moist; no petechiae; no telengectasias; no jaundice; Results Laboratory Results: 10/14/16 07:08 10/14/16 07:08 10/14/16 10/14/16 07:08 07:08 WBC 14.7 H RBC 4.11 Hgb 11.6 L Hct 35.0 L MCV 85 MCH 28.2 MCHC 33.1 RDW 14.8 H Plt Count 393 Sodium 140.3 Potassium 3.2 L Chloride 97 L Carbon Dioxide 32 H Anion Gap 11 BUN 18 Creatinine 0.79 Est GFR ( Amer) > 60 Est GFR (Non-Af Amer) > 60 Glucose 115 H Calcium 9.1 Labs reviewed, persistent leukocytosis, persistent hypokalemia but good renal function Impressions: Chest X-Ray 10/08/16 20:36 IMPRESSION: PATCHY LEFT UPPER LOBE AIRSPACE DISEASE SUGGESTIVE OF PNEUMONIA. Assessment & Plan - Diagnosis (1) Bilateral lower leg cellulitis Is this a current diagnosis for this admission?: YesPlan: De-escalate antibiotics to Levaquin only and changed to oral regimen hoping to get her discharged in the morning (2) Hypokalemia Is this a current diagnosis for this admission?: YesPlan: Continue oral replacement. Computed by continue diuretic therapy. (3) Morbid obesity with BMI of 60.0-69.9, adult Is this a current diagnosis for this admission?: Yes (4) Pneumonia Qualifiers: Pneumonia type: due to unspecified organism Laterality: bilateral Lung location: lower lobe of lung Qualified Code(s): J18.9 - Pneumonia, unspecified organism Is this a current diagnosis for this admission?: YesPlan: Community-acquired, no indication for Zosyn as there is no history of Pseudomonas or vancomycin as there are no resistant organisms identified. We' ll continue Levaquin. (5) Sepsis Qualifiers: Sepsis type: sepsis due to unspecified organism Qualified Code(s): A41.9 - Sepsis, unspecified organism Is this a current diagnosis for this admission?: YesPlan: Stable. (6) Chronic pain disorder Is this a current diagnosis for this admission?: YesPlan: Improved with Adjusted analgesic regimen. Continue same (7) Stasis dermatitis of both legs Is this a current diagnosis for this admission?: YesPlan: Change to oral Lasix and decreased dose. Encourage patient to keep elevated as much as tolerated. - Time Time Spent with patient: 25-34 minutes Medications reviewed and adjusted accordingly: Yes Anticipated discharge: Home - She denies need for home health for senior living care Within: within 24 hours - Plan Summary Plan Summary: Anticipate discharge in the morning.
[2016-10-14] MEDS: FUROSEMIDE 40 MG TABLET PO SCH (19:10)
[2016-10-14] MEDS: NORTRIPTYLINE HCL 25 MG CAPSULE PO SCH (21:18)
[2016-10-14] MEDS: LEVOFLOXACIN 750 MG TABLET PO SCH (21:19)
[2016-10-15] MEDS: CLOTRIMAZOLE 1% CREAM 15 GM TP SCH ×2 (01:00→08:23)
[2016-10-15] MEDS: IPRATROPIUM/ALBUTEROL 0.5-2.5 MG/3 ML AMPUL NEB SCH ×2 (01:49→08:50)
[2016-10-15] MEDS: HEPARIN SOD (PORCINE) 5,000 UNIT/ML 1 ML SYRINGE SUBCUT SCH (07:00)
[2016-10-15] MEDS: ACETAMINOPHEN 325 MG TABLET PO PRN (07:05)
[2016-10-15] MEDS: POTASSIUM CHLORIDE 10 MEQ TABLET.SA PO SCH (08:20)
[2016-10-15] MEDS: FUROSEMIDE 40 MG TABLET PO SCH (08:20)
[2016-10-15] MEDS: LANSOPRAZOLE 30 MG TAB.RAP.DR PO SCH (08:21)
[2016-10-15] MEDS: PREDNISONE 20 MG TABLET PO SCH (08:21)
[2016-10-15] MEDS: LACTOBACILLUS ACIDOPHILUS 250 MG TAB PO SCH (08:21)
[2016-10-15] MEDS: OXYCODONE HCL SR 10 MG TABLET PO SCH (08:21)
[2016-10-15] MEDS: GABAPENTIN 400 MG CAPSULE PO SCH (08:21)
[2016-10-15] MEDS: DOCUSATE SODIUM 100 MG CAPSULE PO SCH (08:22)
[2016-10-15] MEDS: NYSTATIN TOPICAL POWDER 15 GM TP SCH (09:07)
[2016-10-15 10:46] VITALS: BP 123/62
--- NOTE | 2016-10-15 17:34 | PDOC DISCHARGE SUMMARY ---
General - Admit/Disc Date/PCP Admission Date/Primary Care Provider: 10/08/16 22:23 JOHN RUIZ MD Discharge Date: 10/15/16 - Discharge Diagnosis (1) Bilateral lower leg cellulitis Is this a current diagnosis for this admission?: YesSummary: Very slow to improve, continue broad-spectrum antibiotics and showing some improvement with increased attempts at diuresis to lessen the amount of swelling stretch on the tenuous epidermal layer. Finally seems to be close to baseline and stable for discharge home. (2) Hypokalemia Is this a current diagnosis for this admission?: YesSummary: Resolved but required rather aggressive replenishment. Would recommend continuing same particularly while on diuretics. (3) Morbid obesity with BMI of 60.0-69.9, adult Is this a current diagnosis for this admission?: Yes (4) Pneumonia Is this a current diagnosis for this admission?: YesSummary: Slow to improve but finally seems stable enough for discharge home, she is not requiring any supplemental oxygen while ambulating in the room. Would recommend continuing additional 7 days of antibiotics and follow-up with her PCP early next week. (5) Sepsis Is this a current diagnosis for this admission?: YesSummary: Resolved (6) Chronic pain disorder Is this a current diagnosis for this admission?: YesSummary: Prescription given for morphine immediate release total 20 without refill. Instructed to follow up with her PCP for additional medications. (7) Stasis dermatitis of both legs Is this a current diagnosis for this admission?: YesSummary: Seems to be at or near baseline, would continue diuretic therapy. Further dose adjustment per PCP at follow-up - Additional Information Resuscitation Status: Full Code Discharge Diet: Diabetic Discharge Activity: Activity As Tolerated Home Medications: Albuterol Sulfate [Proair Respiclick] 90 mcg IH ASDIR PRN 10/09/16 Eluxadoline [Viberzi] 75 mg PO DAILY 10/09/16 Metformin HCl [Metformin HCl ER] 500 mg PO DAILY 10/09/16 Morphine Sulfate [Morphine Ir 15 mg Tablet] 15 mg PO TID 10/09/16 Triamcinolone Acetonide [Aristocort 0.1% Cream] 1 applic TP TIDP PRN 10/09/16 Zolpidem Tartrate [Ambien Cr] 12.5 mg PO QHS 10/09/16 Acetaminophen [Tylenol 325 mg Tablet] 650 mg PO Q4HP PRN tablet 10/15/16 Docusate Sodium [Colace 100 mg Capsule] 100 mg PO BID capsule 10/15/16 Gabapentin [Neurontin 400 mg Capsule] 800 mg PO TID #90 capsule 10/15/16 Lactobacillus Acidophilus [Acidophilus Lactobacilli] 1 each PO BIDACBL #60 capsule 10/15/16 Levofloxacin [Levaquin 750 mg Tablet] 750 mg PO QHS #7 tablet 10/15/16 Morphine Sulfate [Morphine Ir 15 mg Tablet] 15 mg PO Q12HP PRN #20 tablet Nortriptyline HCl [Pamelor 25 mg Capsule] 25 mg PO QHS #30 capsule 10/15/16 Potassium Chloride [Klor-Con 10 Meq Tablet.sa] 20 meq PO Q12 #60 tablet.sa 10/15 Prednisone [Deltasone 20 mg Tablet] 60 mg PO DAILY #7 tablet 10/15/16 History of Present Illness Patient complains of: Confusion and fever and cough History of Present Illness: GIOVANNI GROVE is a 36 year old female with a past medical history of morbid obesity, chronic pain, bilateral lower extremity venous stasis and irritable bowel syndrome. Who had been her usual state of health until approximately 48 hours ago noted by family to have confusion fever and cough brought to the emergency room for evaluation she's found to have bilateral infiltrate on chest x-ray and marketed pain to her left knee with bilateral lower extremity venous stasis versus early cellulitis. Patient denies infectious contacts though believed to have had influenza vaccine this season. No pharyngitis, rhinorrhea or recent antibiotics. In the emergency room she is found to have altered mental status hypotension tachycardia and fever referred to the hospitalist for admission. " Hospital Course Hospital Course: Patient admitted and placed on broad-spectrum antibiotics with Levaquin, Zosyn, vancomycin and has shown minimal improvement in her cellulitis. She was attempted to diurese with Lasix twice a day and has shown some improvement in the lower extremity swelling but not much improvement in the cellulitis. She underwent echocardiogram that shows well-preserved left ventricular function with an EF of 60%, no significant wall motion or valvular abnormalities. She underwent venous Dopplers of bilateral lower extremities it was a technically difficult study due to body habitus but showed no evidence for DVT in either lower extremity. Her course was very slow to improve and required rather aggressive titration of her antibiotics as well as diuretic therapy in order to achieve some semblance of normalcy for her. Over the course of the last several days she seems to return to baseline and is actually quite anxious for discharge home. Physical Exam Vital Signs: Temp Pulse Resp BP Pulse Ox 98.0 F 80 18 123/62 98 10/15/16 10:43 10/15/16 10:43 10/15/16 10:43 10/15/16 10:43 10/15/16 10:43 Intake & Output 10/14/16 10/15/16 10/16/16 06:59 06:59 06:59 Intake Total 2260 2250 Balance 2260 2250 Weight 185.1 kg 185 kg EXAM GENERAL: NAD; well developed, well nourished; morbid obese; alert and oriented to person, place, time, situation HEENT: normocephalic, atraumatic; no conjunctival injection, no scleral icterus ; oral mucosa moist; RESPIRATORY: no accessory muscle use, no increased WOB, good air entry bilaterally; no wheezes, rales, rhonchi; bibasilar inspiratory crackles, some improved CARDIO: no JVD; RRR; no systolic murmur; no tachycardia GI: Massive pannus, soft; nondistended; normal bowel sounds; no hepato spleno megaly; no rebound, rigidity, guarding; nontender VASCULAR: no carotid bruit; no abdominal bruit; no pallor; 2+ radial, nonpalpable DP pulse; diminished capillary refill EXTREMITIES: Tender to palpation bilateral; chronic acrocyanotic changes, pretibial excoriations left greater than right, bilateral lower extremities erythematous and warm to the touch, some improved PSYCH: normal affect, normal mood SKIN: warm; moist; no petechiae; no telengectasias; no jaundice; Results Laboratory Results: 10/14/16 07:08 10/14/16 07:08 Impressions: Chest X-Ray 10/08/16 20:36 IMPRESSION: PATCHY LEFT UPPER LOBE AIRSPACE DISEASE SUGGESTIVE OF PNEUMONIA. Qualifiers PATEINT BEING DISCHARGED WITH ANY OF THE FOLLOWING DIAGNOSIS?: No VTE patient discharged on overlapping Therapy?: Yes Plan Discharge Plan: Stable for discharge home, follow with her PCP in one week, return emerged apartment for any decline in her condition. [employer] are provided for the necessary medications including antibiotics. She expresses no concerns to me about going home today. She expressed satisfaction with the care she received while here. Time Spent: Greater than 30 Minutes
== END 2016-10-15 11:40 | disposition home or self-care (01) | DRG 871 ==
LOC: ER 19:09 → EH 22:23 → 3S 10-09 04:49
PROVIDERS: ADMIT Internal Medicine; ATTEND Internal Medicine
DX: A41.9 Sepsis, unspecified organism (principal); J18.1 Lobar pneumonia, unspecified organism; L03.116 Cellulitis of left lower limb; L03.115 Cellulitis of right lower limb; Z68.45 Body mass index [BMI] 70 or greater, adult; E87.6 Hypokalemia; I87.2 Venous insufficiency (chronic) (peripheral); K58.9 Irritable bowel syndrome, unspecified; G89.29 Other chronic pain; E66.01 Morbid (severe) obesity due to excess calories; Z71.3 Dietary counseling and surveillance
CPT/HCPCS: 36415; 71010; 80048; 80053; 80202; 81001; 82565; 82803; 82962; 83036; 83605; 83735; 84703; 85025; 85027; 85610; 87040; 87070; 87086; 87205; 87804; 93005; 93010; 93306; 93970; 94640; 94660; 94667; 94799; 96361; 96374; 96375; 99291; J0456; J0696; J1644; J1815; J1885; J1940; J1956; J2405; J2543; J3370; J3475; J3480; J3490; J7030; J7060; J7512; J7620; S0164

== ENCOUNTER 2017-02-16 22:12 | Inpatient (IN) | payer OTHER ==
--- NOTE | 2017-02-16 23:00 | ER Document Report ---
ED General - General Chief Complaint: Headache Stated Complaint: HEADACHE/CHEST PAIN Time Seen by Provider: 02/16/17 22:47 Notes: Patient is a 36-year-old female that comes emergency department for complaints of headache and chest pain, she states that she started getting both the headache and the chest pain at about 2 PM, states that she had blurry vision, she states first her right arm went numb, then her left arm, then her leg on the left side. She states pain was in the center of her chest and she became nauseated. states that after coming to the emergency department and getting in the room about 10 minutes ago she started acting confused and is not responding normally. Uncertain about vomiting. No head injury reported, no fever. Past medical history of morbid obesity, chronic lymphedema, chronic back pain, medications include morphine, gabapentin, clonidine, Ambien, Topamax. TRAVEL OUTSIDE OF THE [place] IN LAST 30 DAYS: No - Related Data Allergies/Adverse Reactions: doxycycline Adverse Reaction (Verified 02/17/17 03:13) Home Medications: Current Home Medications Atorvastatin Calcium 40 mg PO DAILY 02/17/17 [History] Buspirone HCl [Buspar 15 mg Tablet] 30 mg PO BID 02/17/17 [History] Clonidine HCl 1 tab PO TID 02/17/17 [History] Gabapentin [Neurontin 400 mg Capsule] 1,200 mg PO TID 02/17/17 [History] Morphine Sulfate [Morphine Sulfate ER] 15 mg PO Q8H 02/17/17 [History] Nortriptyline HCl [Pamelor 25 mg Capsule] 25 mg PO TID 02/17/17 [History] Pantoprazole Sodium [Protonix] 40 mg PO BID 02/17/17 [History] Tizanidine HCl [Zanaflex 4 mg Tablet] 4 mg PO TID 02/17/17 [History] Topiramate [Topamax] 1 tab PO BID 02/17/17 [History] Zolpidem Tartrate [Ambien Cr] 2 tab PO QHS 02/17/17 [History] Past Medical History - General Information source: Patient - Social History Smoking Status: Never Smoker Frequency of alcohol use: None Drug Abuse: None Lives with: Family Family History: COPD, Hypertension - Past Medical History Cardiac Medical History: Denies: Hx Coronary Artery Disease, Hx Heart Attack, Hx Hypertension Pulmonary Medical History: Reports: Hx Asthma Denies: Hx Bronchitis, Hx COPD, Hx Pneumonia Neurological Medical History: Denies: Hx Cerebrovascular Accident, Hx Seizures Musculoskeltal Medical History: Denies Hx Arthritis Psychiatric Medical History: Reports: Hx Depression Past Surgical History: Reports: Hx Cholecystectomy. Denies: Hx Hysterectomy - Immunizations Hx Diphtheria, Pertussis, Tetanus Vaccination: Yes Hx Pneumococcal Vaccination: 05/22/12 Review of Systems - Review of Systems Constitutional: No symptoms reported EENT: No symptoms reported Cardiovascular: See HPI Respiratory: No symptoms reported Gastrointestinal: No symptoms reported Genitourinary: No symptoms reported Female Genitourinary: No symptoms reported Musculoskeletal: No symptoms reported Skin: See HPI Hematologic/Lymphatic: No symptoms reported Neurological/Psychological: See HPI Physical Exam - Vital signs Vitals: Temp Pulse Resp BP Pulse Ox 97.9 F 105 H 21 H 151/105 H 96 02/16/17 22:42 02/16/17 22:42 02/16/17 22:42 02/16/17 22:42 02/16/17 22:42 - General General appearance: Other - patient muttering/moaning, however she will respond to me, follow directions, answer questions, and then resume initial status - HEENT Head: Normocephalic, Atraumatic Eyes: Normal Conjunctiva: Normal Extraocular movements intact: Yes Eyelashes: Normal Pupils: PERRL Sinus: Normal Nasal: Normal Mouth/Lips: Normal Mucous membranes: Dry Pharynx: Normal Neck: Normal - Respiratory Respiratory status: No respiratory distress Breath sounds: Normal. No: Decreased air movement, Wheezing - Cardiovascular Rhythm: Regular, Tachycardia Heart sounds: Normal auscultation, S1 appreciated, S2 appreciated - Abdominal Inspection: Normal Tenderness: Nontender. No: Tender - Back Back: Normal, Nontender. No: Tender, Vertebra tenderness - Extremities General upper extremity: Normal inspection, Nontender, Normal ROM, Normal strength General lower extremity: Other - chronic LE lymphedema bilaterally with some staining; significant warmth and erythema to both feet and lower legs, worse on the left; left great toe in particular has significant tenderrness; no crepitus , no drainage, no induration or fluctuance; normal distal pulses and sensation - Neurological Cognition: Normal Orientation: No: Disoriented to person, Disoriented to place, Disoriented to time, Disoriented to events [place] Coma Scale Eye Opening: Spontaneous [place] Coma Scale Verbal: Oriented [place] Coma Scale Motor: Obeys Commands [place] Coma Scale Total: 15 Speech: Normal Cranial nerves: Normal Cerebellar coordination: Normal Motor strength normal: LUE, RUE, LLE, RLE Additional motor exam normals: Equal narrative writer - Skin Skin Temperature: Warm Skin Moisture: Dry Course - Re-evaluation Re-evalutation: Initially when I spoke patient she just muttered/grunted in response however after a few minutes during the examshe began opening her eyes, following directions, and responding. No seizure activity. Patient is not postictal. Patient answers questions appropriately, is ordered to person, place, self, today and symptoms. No neurological deficits on exam. 02/17/17 00:05 CT of the head is negative. Patient cooperating with a normal neurological exam. She tells me her headache is "basically gone", states she is having chest pains in the center of her chest. Aspirin ordered, morphine ordered (patient takes morphine, was due at 2200 as well). Chest x-ray showing abnormality, seen on the right side, radiology suggests possible cyst. Discussed with Dr. Juares , recommends CTA of the chest. CTA of the chest shows no acute abnormalities, area is fatty, not cystic or with any other concerning abnormalities. No PE explain patient's tachycardia. Patient still is complaining of intermittent chest discomfort although not like she was before. Now she is stating she has a headache. Patient denies fever, however she does have bilateral lower extremity cellulitis, worse on the left, has had sepsis from in the past, given Zosyn, patient states she is allergic to vancomycin and she has "swelling". Patient was discussed with Dr. Juares. Discussed with Dr. Perkins, internal medicine, patient will be admitted to the hospital for recurrent cellulitis, tachycardia, and unspecified neurological symptoms with normal CT of the head and current normal neurological examination. - Vital Signs Vital signs: Temp Pulse Resp BP Pulse Ox 97.8 F 116 H 20 142/94 H 99 02/17/17 03:30 02/17/17 04:00 02/17/17 04:00 02/17/17 04:00 02/17/17 04:00 - Laboratory Result Diagrams: 02/17/17 05:08 02/17/17 05:08 Laboratory results interpreted by me: 02/16/17 23:05 WBC 12.1 H MCHC 31.9 L RDW 15.4 H Discharge - Discharge Clinical Impression: Tachycardia, Confusion, Chronic acquired lymphedema Cellulitis Qualifiers: Site of cellulitis: extremity Site of cellulitis of extremity: lower extremity Laterality: unspecified laterality Qualified Code(s): L03.119 - Cellulitis of unspecified part of limb Disposition: ADMITTED INPATIENT Admitting Provider: Hospitalist Unit Admitted: [facility]
--- NOTE | 2017-02-16 23:09 | EKG REPORT ---
SEVERITY:- ABNORMAL ECG - SINUS TACHYCARDIA LEFT ATRIAL ABNORMALITY : Confirmed by: Adri Calvert 16-Feb-2017 23:08:52
[2017-02-16 23:19] LABS: ABSOLUTE BASOPHILS # (AUTO) 0.1 10^3/uL (0.0-0.2); ABSOLUTE EOSINOPHILS # (AUTO) 0.3 10^3/uL (0.0-0.6); ABSOLUTE LYMPHOCYTES (AUTO) 3.7 10^3/uL (0.5-4.7); ABSOLUTE MONOCYTES (AUTO) 0.9 10^3/uL (0.1-1.4); ABSOLUTE NEUT (AUTO) 7.1 10^3/uL (1.7-8.2); BASOPHILS % (AUTO) 0.7 % (0-2); EOSINOPHILS % (AUTO) 2.1 % (0-6); HEMATOCRIT 44.2 % (36.0-47.0); HEMOGLOBIN 14.1 g/dL (12.0-15.5); HGB HCT DIFFERENCE -1.9; LYMPHOCYTES % (AUTO) 30.7 % (13-45); MEAN CORPUSCULAR HEMOGLOBIN 27.4 pg (27.0-33.4); MEAN CORPUSCULAR HGB CONC 31.9 g/dL (32.0-36.0); MEAN CORPUSCULAR VOLUME 86 fl (80-97); MONOCYTES % (AUTO) 7.7 % (3-13); RED BLOOD COUNT 5.16 10^6/uL (3.72-5.28); RED CELL DISTRIBUTION WIDTH 15.4 % (11.5-14.0); SEGMENTED NEUTROPHILS % (AUTO) 58.8 % (42-78); WHITE BLOOD COUNT 12.1 10^3/uL (4.0-10.5)
[2017-02-16 23:33] LABS: ALANINE AMINOTRANSFERASE 33 U/L (9-52); ALBUMIN 4.1 g/dL (3.5-5.0); ALKALINE PHOSPHATASE 100 U/L (38-126); ANION GAP 13 (5-19); ASPARTATE AMINO TRANSFERASE 32 U/L (14-36); BILIRUBIN,DIRECT 0.3 mg/dL (0.0-0.4); BILIRUBIN,TOTAL 0.6 mg/dL (0.2-1.3); BLOOD UREA NITROGEN 15 mg/dL (7-20); CALCIUM 9.2 mg/dL (8.4-10.2); CARBON DIOXIDE 24 mmol/L (22-30); CHLORIDE 104 mmol/L (98-107); CREATINE KINASE 52 U/L (30-135); CREATININE RESULT 0.81 mg/dL (0.52-1.25); GLUCOSE 105 mg/dL (75-110); POTASSIUM 4.1 mmol/L (3.6-5.0); SODIUM 140.6 mmol/L (137-145)
--- NOTE | 2017-02-16 23:39 | RADIOLOGY REPORT (SQ) ---
EXAM DESCRIPTION: CT HEAD WITHOUT COMPLETED DATE/TIME: 02/16/2017 11:23 pm REASON FOR STUDY: headache, AMS COMPARISON: None. TECHNIQUE: Axial images acquired through the brain without intravenous contrast. Images reviewed wi th bone, brain and subdural windows. Images stored on PACS. All CT scanners at this facility use dose modulation, iterative reconstruction, and/or weight based d osing when appropriate to reduce radiation dose to as low as reasonably achievable (ALARA). [facility]: Dose Right [facility]: CareDose [facility]: Dose Right [facility]: Teradose 4D [facility]: Smart Exablox RADIATION DOSE: Up-to-date CT equipment and radiation dose reduction techniques were employed. CTDIv ol: 64.6 mGy. DLP: 1163 mGy-cm. mGy. LIMITATIONS: None. FINDINGS: VENTRICLES: Normal size and contour. CEREBRUM: No masses. No hemorrhage. No midline shift. Normal vazquez/white matter differentiation. N o evidence for acute infarction. CEREBELLUM: No masses. No hemorrhage. No alteration of density. No evidence for acute infarction. EXTRAAXIAL SPACES: No fluid collections. No masses. ORBITS AND GLOBE: No intra- or extraconal masses. Normal contour of globe without masses. CALVARIUM: No fracture. PARANASAL SINUSES: No fluid or mucosal thickening. SOFT TISSUES: No mass or hematoma. OTHER: No other significant finding. IMPRESSION: NORMAL BRAIN CT WITHOUT CONTRAST. TECHNICAL DOCUMENTATION: JOB ID: [id number] Quality ID # [id number]: Final reports with documentation of one or more dose reduction techniques (e.g., Au tomated exposure control, adjustment of the mA and/or kV according to patient size, use of iterative reconstruction technique) 2010 [employer]- All Rights Reserved
--- NOTE | 2017-02-16 23:41 | RADIOLOGY REPORT (SQ) ---
EXAM DESCRIPTION: CHEST SINGLE VIEW COMPLETED DATE/TIME: 02/16/2017 11:28 pm REASON FOR STUDY: chest pain COMPARISON: None. EXAM PARAMETERS: NUMBER OF VIEWS: One view. TECHNIQUE: Single frontal radiographic view of the chest acquired. RADIATION DOSE: NA LIMITATIONS: None. FINDINGS: LUNGS AND PLEURA: No opacities, masses or pneumothorax. No pleural effusion. MEDIASTINUM AND HILAR STRUCTURES: No masses. Contour normal. HEART AND VASCULAR STRUCTURES: Heart normal in size. Normal vasculature. 4.6 cm round mass adjacent to the right heart border. Likely pericardial cyst. BONES: No acute findings. HARDWARE: None in the chest. OTHER: No other significant finding. IMPRESSION: No acute findings. Likely pericardial cyst adjacent to the right heart border. TECHNICAL DOCUMENTATION: JOB ID: [id number]
[2017-02-16 23:45] LABS: CREATINE KINASE MB 0.79 ng/mL (<4.55)
[2017-02-16 23:53] LABS: TROPONIN I < 0.012 ng/mL
[2017-02-17] MEDS ORDERED: ONDANSETRON HCL INJ/PF 4 MG/2 ML SDV IV ONE (00:01)
[2017-02-17] MEDS ORDERED: MORPHINE SULFATE 10 MG/ML INJ IV ONE (00:01)
[2017-02-17] MEDS ORDERED: ASPIRIN 81 MG TABLET, CHEWABLE PO ONE (00:21)
--- NOTE | 2017-02-17 01:10 | RADIOLOGY REPORT (SQ) ---
EXAM DESCRIPTION: CTA CHEST COMPLETED DATE/TIME: 02/17/2017 12:30 am REASON FOR STUDY: chest pain, eval x-ray abnormality ? pericardial cyst COMPARISON: 02/16/2017. TECHNIQUE: CT scan of the chest performed using helical scanning technique with dynamic intravenous contrast injection. Images reviewed with lung, soft tissue and bone windows. Reconstructed coronal and sagittal MPR images reviewed. Additional 3 dimensional post-processing performed to develop Maximal Intensity Projection images (LA P). All images stored on PACS. All CT scanners at this facility use dose modulation, iterative reconstruction, and/or weight based d osing when appropriate to reduce radiation dose to as low as reasonably achievable (ALARA). [facility]: Dose Right [facility]: CareDose [facility]: Dose Right [facility]: Teradose 4D [facility]: PowerDsine CONTRAST TYPE AND DOSE: 100 cc Omnipaque 370. RENAL FUNCTION: Creatinine 0.8. RADIATION DOSE: Up-to-date CT equipment and radiation dose reduction techniques were employed. CTDIv ol: 57.5 mGy. DLP: 1821 mGy-cm. . LIMITATIONS: None. FINDINGS: LUNGS AND PLEURA: No masses, infiltrates, pneumothorax. No pleural effusions, calcificati ons. Mild atelectasis of the right middle lobe. AORTA AND GREAT VESSELS: No aneurysm or dissection. HEART: No pericardial effusion. Prominent right cardiophrenic fat pad. No significant pericardial c ysts, as queried. PULMONARY ARTERIES: No gross evidence of pulmonary embolus on nondedicated exam. Pulmonary arterial enhancement measures 164 Hounsfield units. HILAR AND MEDIASTINAL STRUCTURES: No identified masses or abnormal nodes. HARDWARE: None in the chest. UPPER ABDOMEN: Small calcified granuloma of the spleen. The Limited exam. THYROID AND OTHER SOFT TISSUES: No masses. No adenopathy. BONES: No acute or significant finding. Moderate disc desiccation. 3D MIPS: Confirm above findings. OTHER: No other significant finding. IMPRESSION: No significant contrast CT abnormality of the chest. TECHNICAL DOCUMENTATION: JOB ID: [id number] Quality ID # [id number]: Final reports with documentation of one or more dose reduction techniques (e.g., Au tomated exposure control, adjustment of the mA and/or kV according to patient size, use of iterative reconstruction technique) 2010 [employer]- All Rights Reserved
[2017-02-17] MEDS ORDERED: DIPHENHYDRAMINE HCL 50 MG/ML VIAL IV ONE (01:55)
[2017-02-17] MEDS ORDERED: METOCLOPRAMIDE HCL INJ/PF 10 MG/2 ML SDV IV ONE (01:55)
[2017-02-17] MEDS ORDERED: PIPERACILLIN/TAZOBACTAM 3.375 GM VIAL IV ONE (01:55)
[2017-02-17 02:47] LABS: ADD ON TESTING BLD IN LAB ACKNOWLEDGE
[2017-02-17 02:59] LABS: MAGNESIUM 2.3 mg/dL (1.6-2.3)
[2017-02-17] MEDS ORDERED: VANCOMYCIN HCL 0 MG in DEXTROSE 5%-WATER 250 ML IV NR (03:15)
[2017-02-17] MEDS ORDERED: DEXTROSE 40% GEL 15 GM TUBE PO PRN ×2 (03:17)
[2017-02-17] MEDS ORDERED: DEXTROSE 50%-WATER 25 GM/50 ML DISP.SYRIN IV PRN ×2 (03:17)
[2017-02-17] MEDS ORDERED: GLUCAGON,HUMAN RECOMB 1 MG INJ IM PRN (03:17)
[2017-02-17] MEDS ORDERED: NORMAL SALINE 1000 ML 2,000 ML IV ONE (03:19)
[2017-02-17] MEDS ORDERED: MAGNESIUM HYDROXIDE SUSP 30 ML UDCUP PO PRN ×2 (03:25→07:56)
[2017-02-17] MEDS ORDERED: PROMETHAZINE HCL 25 MG TABLET PO PRN (03:32)
[2017-02-17] MEDS ORDERED: ALBUTEROL SULFATE 0.083% NEB 2.5 MG/3 ML AMPUL NEB PRN (03:33)
--- NOTE | 2017-02-17 03:59 | PDOC H&P ---
History of Present Illness Admission Date/PCP: 02/17/17 02:15 [facility] Patient complains of: headache, chest pain History of Present Illness: GIOVANNI GROVE is a 36 year old morbidly obese female with chronic bilateral lower extremity lymphedema, along with recurrent episodes of cellulitis involving both lower extremities, although more commonly in the left lower extremity who presents to the emergency room for evaluation of above complaints. Concomitant medical problems include type 2 diabetes mellitus, morbid obesity, chronic back pain, anxiety and depression, without suicidal or homicidal ideation, asthma, which rarely bothers her, mild reflux, mild psoriasis, primarily involving her lower extremities, and easy bruising. She presents with a number of complaints all seeming to arise approximately 2 PM on the . Headache, which is mostly resolved. Blurred vision likewise. Right arm went numb followed by her left arm and left leg. Most of this has resolved. Still complaining of right facial numbness, along with slight decrease in hearing in her right ear. Also noted the onset of "heaviness" in her substernal region, radiating to her left arm, increasing with deep breath and/or sternal compression. Was noted to be somewhat confused and not responding normally in the emergency room, but this is all basically resolved. Some nausea but no vomiting. Positive shaking chills. No diarrhea or dysuria. Basically unremarkable cardiac disease, with no previous myocardial infarction, congestive heart failure, pulmonary embolus, or DVT. Negative exercise treadmill study in 2005. Family history of early coronary artery disease in her father. No prior seizure stroke TIA or mini stroke. Currently resting quietly, still with some complaint of chest heaviness. Hospitalized the through the ninth of this month at [facility] for cellulitis involving her left lower extremity. No history of MRSA or C. difficile infections. Patient has been discussed with emergency room nurse practitioner who evaluated the patient. Hospitalized on our service the September of this year, with discharge diagnoses including bilateral lower leg cellulitis, hypokalemia, and pneumonia. Chronic pain disorder. History and physical and discharge summary have been reviewed.. [facility] and are reviewed. X-ray summary results are listed below, with full report(s) reviewed. . EKG reviewed and compared to prior tracing from October 08 of this year. Social history/personal habits: . 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 No use of alcohol tobacco or illicit drugs. Allergies/adverse reactions are listed in [facility] and are reviewed. Home medications initially autopopulated into [facility] may not accurately reflect patient's true medications, dosages, and/or frequencies. 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 Unfortunately, patient not certain of all medications/dosages/frequencies. She does state that she does not take chronic steroids. Recently completed a one- week regimen of 21 tablets for exacerbation of her chronic back pain. REVIEW OF SYSTEMS: Constitutional: See history and present illness. Eyes: Wears glasses and/or contacts ENT: No swallowing problems or complaints. See history and present illness. Pulmonary: No current complaints. Cardiovascular: See history and present illness. Gastrointestinal: See history and present illness. Skin: See history and present illness. Hematologic: Easy bruising. Neurologic: See history and present illness. Chronic numbness and tingling of her feet secondary to her diabetic neuropathy. Musculoskeletal: Chronic back pain. Psychiatric: Mild anxiety and depression, without suicidal or homicidal ideation. Endocrine: Polyuria; patient freely admits she rarely checks her blood sugar. Genitourinary: No current complaints, including dysuria. PHYSICAL EXAMINATION: 5 feet 10 inches tall. 195 kg. BMI 61.7 kg/m. Blood pressure 141/90. Pulse 125 and regular. 96% saturation on room air. Respirations are 20 and unlabored. Temperature not recorded on chart; skin feels normothermic other than in the area of involvement of her lower extremities. Morbidly obese otherwise well-developed though somewhat chronically ill- appearing female who appears a bit older than her stated age. Appears to feel a bit under the weather, so to speak. Mildly anxious, without agitation. is present at her side; patient approves. Female emergency room nursing program chair Mildred is present. Skin is warm and dry. No grossly obvious evidence of rash in areas of skin examined. No subcutaneous nodules palpated. See "extremities" below. ENT: Hearing grossly normal to normal conversation. Tongue midline on protrusion pink and slightly tacky. Eyes: No scleral icterus. Pupils equal and reactive to light at 4 mm. [place] conjunctivae. Neck is supple and nontender to gentle active range of motion and palpation. Midline trachea. No palpable thyroid nodule mass enlargement or tenderness. Lymphatic: No palpable cervical or clavicular nodes. Neck and lymphatic exams limited by patient body habitus. Psychiatric: Reasonable insight into acute and chronic medical issues. Oriented to time location and why here. Lungs: Auscultation reveals clear and equal breath sounds bilaterally. No use of accessory respiratory muscles. Cardiovascular: Heart regular rate and rhythm, without gallop murmur or rub. No carotid or abdominal aortic bruits. Mild bilateral symmetric very slightly pitting ankle and pedal edema. Not sure I can palpate dorsalis pedis and posterior tibial pulses on either side, but toes are warm and dry with excellent capillary refill. Abdomen:soft quite obese nontender with positive bowel sounds. Unable to adequately evaluate abdomen for masses or organomegaly due to body habitus. Compression of her upper abdomen has no effect on her chest discomfort. However , both sternal compression and taking a deep breath increase her chest discomfort. Extremities: Feet are warm and dry. Gentle manipulation of lower extremities fails to reveal any obvious evidence of injury or instability to knees hips or ankles. Bilateral lower extremity swelling, with the appearance of chronic lymphedema. Chronic bilateral lower extremity venous staining, primarily between knees and ankles. Bilateral lower legs, she has evidence of increased redness and warmth, more noticeable and a bit more tender on the left lower extremity. No crepitus fluctuance or expressible discharge. Area of involvement is greater in the left lower extremity, extending more proximally than on the right lower extremity. Area of involvement remains below the knees however. Neurologic: Cranial Nerves II through XII are grossly intact. Light touch intact at face, upper and lower extremities, with the exception that patient states the right side of her face "feels harder" on light touch, versus the left side. Motor function of major muscle groups upper and lower extremities 5 over 5 and symmetric. Patellar reflexes absent. Absent Babinski. No nystagmus. Past Medical History Cardiac Medical History: Denies: Congestive Heart Failure, Coronary Artery Disease, DVT, Myocardial Infarction, Hyperlipidema, Hypertension, Pulmonary Embolism Pulmonary Medical History: Reports: Asthma Denies: Bronchitis, Chronic Obstructive Pulmonary Disease (COPD), Pneumonia, Sleep Apnea EENT Medical History: Reports: Eyes - Glasses and/or contacts, Ears - See history and present illness, February 17, 2017. Denies: Throat Neurological Medical History: Denies: Hemorrhagic CVA, Ischemic CVA, Seizures Endocrine Medical History: Reports: Diabetes Mellitus Type 2 Denies: Diabetes Mellitus Type 1, Hyperthyroidism, Hypothyroidism Renal/ Medical History: Reports: Other - Polyuria GI Medical History: Reports: Gastroesophageal Reflux Disease Denies: Cirrhosis, Hepatitis, Peptic Ulcer Disease Musculoskeltal Medical History: Reports: Arthritis - Chronic back pain Skin Medical History: Reports: Psoriasis - Mild, primarily left lower extremity Psychiatric Medical History: Reports: Depression, General Anxiety Disorder Denies: Alcohol Dependency, Substance Abuse, Tobacco Dependency Hematology: Reports: Other - Easy bruising Denies: Anemia Infectious Medical History: Denies: Clostridium Difficile, Hepatitis B, Hepatitis C, Methicillin- Resistant Staph Aureus Past Surgical History Past Surgical History: Reports: Section - 2, Cholecystectomy, Orthopedic Surgery - Foot surgery 2 Denies: Hysterectomy Social History Information Source: Patient, Emergency Med Personnel, [facility] Records Lives with: Spouse/Significant other Smoking Status: Unknown if Ever Smoked Frequency of Alcohol Use: None Hx Recreational Drug Use: No Drugs: None Hx Prescription Drug Abuse: No - Advance Directive Resuscitation Status: Full Code Surrogate healthcare decision maker:: Family History Family History: COPD, Hypertension Parental Family History Reviewed: Yes - Mother of pneumonia; father with coronary artery disease; alive. Children Family History Reviewed: Yes - Daughter with orthostatic hypotension. Sibling(s) Family History Reviewed.: Yes - Healthy Medication/Allergy Home Medications: Albuterol Sulfate [Proair HFA] 2 puff IH Q4HP PRN 02/17/17 Atorvastatin Calcium [Lipitor 40 mg Tablet] 40 mg PO QHS 02/17/17 Buspirone HCl [Buspar 15 mg Tablet] 30 mg PO BID 02/17/17 Clonidine HCl [Catapres 0.2 mg Tablet] 0.2 mg PO TIDP PRN 02/17/17 Gabapentin [Neurontin 400 mg Capsule] 1,200 mg PO Q8 02/17/17 Metformin HCl [Metformin HCl ER] 500 mg PO QAM 02/17/17 Morphine Sulfate [Morphine Ir 15 mg Tablet] 15 mg PO TIDP PRN 02/17/17 Morphine Sulfate [Morphine Sulfate ER] 15 mg PO Q8 02/17/17 Nortriptyline HCl [Pamelor 25 mg Capsule] 25 mg PO TID 02/17/17 Pantoprazole Sodium [Protonix] 40 mg PO QAM 02/17/17 Tizanidine HCl [Zanaflex 4 mg Tablet] 4 mg PO TIDP PRN 02/17/17 Topiramate [Topamax 25 mg Tablet] 50 mg PO QHS 02/17/17 Zolpidem Tartrate [Ambien Cr] 25 mg PO QHS 02/17/17 Aspirin [Ecotrin 81 mg EC Tablet] 81 mg PO DAILY tabec 02/18/17 Cephalexin Monohydrate [Keflex 500 mg Capsule] 500 mg PO TID #21 capsule Allergies/Adverse Reactions: doxycycline Adverse Reaction (Unknown, Verified 02/17/17 07:16) Physical Exam Vital Signs: Temp Pulse Resp BP Pulse Ox 114 H 14 115/78 95 02/17/17 03:20 02/17/17 02:30 02/17/17 02:30 02/17/17 02:30 Intake & Output 02/16/17 02/17/17 02/18/17 00:59 00:59 00:59 Weight 195.045 kg Results Impressions: Chest X-Ray 02/16/17 22:57 IMPRESSION: No acute findings. Likely pericardial cyst adjacent to the right heart border. Head CT 02/16/17 22:57 IMPRESSION: NORMAL BRAIN CT WITHOUT CONTRAST. Chest/Abdomen CTA 02/17/17 00:02 IMPRESSION: No significant contrast CT abnormality of the chest. Assessment & Plan - Diagnosis (1) Asthma Qualifiers: Asthma severity: unspecified severity Asthma complication type: uncomplicated Qualified Code(s): J45.909 - Unspecified asthma, uncomplicated Is this a current diagnosis for this admission?: YesPlan: As needed albuterol neb. (2) Diabetes mellitus type 2 in obese Is this a current diagnosis for this admission?: YesPlan: Clear liquid diet initially. Accu-Cheks with appropriate sliding scale coverage. Resume home medications as appropriate once these have been determined and reviewed. Hemoglobin A1c (3) Rt facial numbness Is this a current diagnosis for this admission?: YesPlan: Uncertain significance, but will proceed as for TIA/stroke workup, with lipid panel, and further imaging procedures. Neurologically intact otherwise. (4) Precordial chest pain Is this a current diagnosis for this admission?: YesPlan: Likely musculoskeletal, but given her multiple risk factors, will proceed with lipid panel, repeat EKG, and repeat troponins. (5) Bilateral lower leg cellulitis Is this a current diagnosis for this admission?: YesPlan: Ancef and intravenous vancomycin. Pharmacy to assist with dosing. Have requested old records from her recent hospital stay at [facility] for left lower extremity cellulitis. I have strongly encouraged patient not to get out of bed without notifying staff , to avoid a fall with injury. Knee high SCDs will be withheld, due to her bilateral lower extremity cellulitis. For DVT prophylaxis, subcutaneous heparin. Impression and plans were discussed with patient and , both of whom concur. Time spent in evaluation and management of patient: 80 minutes. (6) Chronic pain disorder Is this a current diagnosis for this admission?: YesPlan: Resume home medications as appropriate once these have been determined and reviewed. - Inpatient Certification Based on my medical assessment, after consideration of the patient's comorbidities, presenting symptoms, or acuity I expect that the services needed warrant INPATIENT care.: Yes I certify that my determination is in accordance with my understanding of Medicare's requirements for reasonable and necessary INPATIENT services [42 CFR 412.3e].: Yes Medical Necessity: Significant Comorbidiites Make Outpatient Treatment Too Risky , Need Close Monitoring Due to Risk of Patient Decompensation, Need For Continuous Telemetry Monitoring, Need for Neurological Checks, Need for IV Antibiotics, Risk of Complication if Not Cared For in Hospital Post Hospital Care: D/C or Transfer Summary
[2017-02-17 04:12] LABS: APPEARANCE,URINE SLIGHTLY-CLOUDY; BILIRUBIN,URINE NEGATIVE (NEGATIVE); GLUCOSE, URINE NEGATIVE (NEGATIVE); KETONES,URINE NEGATIVE (NEGATIVE); LEUKOCYTE ESTERASE,URINE NEGATIVE (NEGATIVE); NITRITE,URINE POSITIVE (NEGATIVE); PROTEIN,URINE NEGATIVE (NEGATIVE); URINE SPECIFIC GRAVITY > 1.060; UROBILINOGEN,URINE NEGATIVE mg/dL (<2.0)
[2017-02-17] MEDS ORDERED: VANCOMYCIN HCL INJ 1000 MG VIAL IV PRN (04:38)
[2017-02-17] MEDS ORDERED: VANCOMYCIN HCL INJ 1000 MG VIAL ONE (04:44)
[2017-02-17] MEDS ORDERED: CEFAZOLIN INJ 1 GM VIAL ONE (04:44)
[2017-02-17] MEDS ORDERED: VANCOMYCIN HCL 2,000 MG in DEXTROSE 5%-WATER 500 ML IV ONE (04:45)
[2017-02-17 05:26] LABS: ABSOLUTE BASOPHILS # (AUTO) 0.1 10^3/uL (0.0-0.2); ABSOLUTE EOSINOPHILS # (AUTO) 0.2 10^3/uL (0.0-0.6); ABSOLUTE LYMPHOCYTES (AUTO) 3.4 10^3/uL (0.5-4.7); ABSOLUTE NEUT (AUTO) 7.3 10^3/uL (1.7-8.2); BASOPHILS % (AUTO) 0.4 % (0-2); HEMATOCRIT 40.9 % (36.0-47.0); HEMOGLOBIN 12.8 g/dL (12.0-15.5); HGB HCT DIFFERENCE -2.5; LYMPHOCYTES % (AUTO) 28.1 % (13-45); MEAN CORPUSCULAR HEMOGLOBIN 27.1 pg (27.0-33.4); MEAN CORPUSCULAR HGB CONC 31.3 g/dL (32.0-36.0); MEAN CORPUSCULAR VOLUME 86 fl (80-97); MONOCYTES % (AUTO) 8.5 % (3-13); RED BLOOD COUNT 4.73 10^6/uL (3.72-5.28); RED CELL DISTRIBUTION WIDTH 15.4 % (11.5-14.0)
[2017-02-17 05:29] LABS: PROTHROMBIN TIME 13.3 SEC (11.4-15.4)
[2017-02-17 05:30] LABS: PARTIAL THROMBOPLASTIN TIME 30.3 SEC (23.5-35.8)
[2017-02-17 05:41] LABS: ANION GAP 9 (5-19); BLOOD UREA NITROGEN 14 mg/dL (7-20); CALCIUM 8.8 mg/dL (8.4-10.2); CARBON DIOXIDE 23 mmol/L (22-30); CHLORIDE 106 mmol/L (98-107); CREATININE RESULT 0.86 mg/dL (0.52-1.25); Direct HDL 49 mg/dL (>40); GLUCOSE 106 mg/dL (75-110); SODIUM 138.4 mmol/L (137-145); TRIGLYCERIDES 173 mg/dL (<150)
[2017-02-17] MEDS: CEFAZOLIN 2 GM/D5W RTU 2 GM/50 ML RTUPB IV SCH ×3 (05:43→23:50)
[2017-02-17 05:45] LABS: VLDL CHOLESTEROL 34.6 mg/dL (10-31)
[2017-02-17 05:52] LABS: DIRECT LDL 109 mg/dL (<100)
[2017-02-17] MEDS: HEPARIN SOD (PORCINE) 5,000 UNIT/ML 1 ML SYRINGE SUBCUT SCH ×3 (06:38→23:50)
[2017-02-17] MEDS: ACETAMINOPHEN 325 MG TABLET PO PRN ×2 (06:38→13:59)
[2017-02-17] MEDS ORDERED: ASPIRIN 81 MG TABLET, ENT COATED PO SCH (10:00)
--- NOTE | 2017-02-17 11:49 | RADIOLOGY REPORT (SQ) ---
EXAM DESCRIPTION: PICC INSERTION; FLUORO/CV PLACEMENT; U/S GUIDE FOR VASCULAR ACCESS COMPLETED DATE/TIME: 02/17/2017 11:34 am REASON FOR STUDY: iv access; IV ACCESS COMPARISON: Chest films 02/16/2017, CT angio chest 02/17/2017 FLUOROSCOPY TIME: 1.3 minutes 3 8 chest digital radiographs and 1 right upper extremity ultrasound images saved to PACS. TECHNIQUE: Fluoroscopic and ultrasound guided PICC placement. LIMITATIONS: None. PROCEDURE: After written consent and assessment were obtained, the patient was brought into the fluo roscopy room and place supine on the table. Ultrasound was used on the patient's right arm for PICC access. The right arm was prepped and draped in a sterile fashion along with the ultrasound probe. Th e entry site was anesthetized with 3.5 mL of 1% lidocaine. A 21 gauge 7 cm needle was advanced throug h the skin and into the right basilic vein under live ultrasound guidance. An ultrasound image was s aved to PACS confirming access site. A .018 guide wire was then inserted through the needle and into the venous system. The needle was the removed and an 11 blade scalpel was used to make a 1cm skin in cision. A 5 fr peel-away sheath was advanced over the wire and into the venous system. A measurement was then made using the existing wire and live fluoroscopic guidance. The wire was then removed and the trimmed. The PICC was advanced through the peel-away sheath and into the venous system. The peel- away sheath was removed and the catheter was adhered to the patients arm with a stat lock. The cathet er was then aspirated and flushed and a sterile bandage was placed over the access site. A fluorosco pic spot image was saved to PACS confirming the catheter tip within the superior vena cava. IMPRESSION: SUCCESSFUL PLACEMENT OF A 5 FR DUAL LUMEN 39 CM PICC IN THE right basilic VEIN. COMMENT: Patient medication list reviewed: Yes- Quality ID# [id number]:Eligible professional attests to doc umenting in the medical record they obtained, updated, or reviewed the patient's current medications. . Quality ID 145: Final reports for procedures using fluoroscopy that document radiation exposure jaspreet aman, or exposure time and number of fluorographic images (if radiation exposure indices are not avail able) Quality ID #76: The patient was prepped and draped using maximum sterile barrier technique including cap, mask, sterile gown, sterile gloves, a large sterile sheet, hand hygiene, and 2% Chlorhexidine fo r cutaneous antisepsis. When ultrasound is used, sterile ultrasound techniques are followed requiring sterile gel and sterile probes. TECHNICAL DOCUMENTATION: JOB ID: [id number] [employer]- All Rights Reserved
[2017-02-17] MEDS: DOCUSATE SODIUM 100 MG CAPSULE PO SCH ×2 (12:21→18:19)
--- NOTE | 2017-02-17 14:03 | PDOC PROGRESS REPORT ---
Subjective Progress Note for:: 02/17/17 Subjective:: reason for visit: f/u BLE cellulitis, paresthesias, asthma, atypical chest pain hospital course: per H&P - "GIOVANNI GROVE is a 36 year old morbidly obese female with chronic bilateral lower extremity lymphedema, along with recurrent episodes of cellulitis involving both lower extremities, although more commonly in the left lower extremity who presents to the emergency room for evaluation of above complaints (headache, chest pain). Concomitant medical problems include type 2 diabetes mellitus, morbid obesity, chronic back pain, anxiety and depression, without suicidal or homicidal ideation, asthma, which rarely bothers her, mild reflux, mild psoriasis, primarily involving her lower extremities, and easy bruising. She presents with a number of complaints all seeming to arise approximately 2 PM on the . Headache, which is mostly resolved. Blurred vision likewise. Right arm went numb followed by her left arm and left leg. Most of this has resolved. Still complaining of right facial numbness, along with slight decrease in hearing in her right ear. Also noted the onset of "heaviness" in her substernal region, radiating to her left arm, increasing with deep breath and/or sternal compression. Was noted to be somewhat confused and not responding normally in the emergency room, but this is all basically resolved. Some nausea but no vomiting. Positive shaking chills. No diarrhea or dysuria. Basically unremarkable cardiac disease history, with no previous myocardial infarction, congestive heart failure, pulmonary embolus, or DVT. Negative exercise treadmill study in 2005. Family history of early coronary artery disease in her father. No prior seizure stroke TIA or mini stroke. Hospitalized the through the ninth of this month at [facility] for cellulitis involving her left lower extremity. Hospitalized on our service the September of this year, with discharge diagnoses including bilateral lower leg cellulitis, hypokalemia, and pneumonia. Chronic pain disorder." workup is underway and not yet completed. CTA chest was negative for acute disease. Tp's neg x3. echo performed but not yet read. MRI/A still pending. I found her ambulating in the room, easily winded and in general feeling better. she denies chest pain currently, has chronic burning, sharp, stabbing, constant nonradiating pain in her legs worse with standing and improved with rest and pain meds. ROS: all systems reviewed, see above, remaining systems negative Physical Exam Vital Signs: Temp Pulse Resp BP Pulse Ox 98.1 F 101 H 16 153/98 H 100 02/17/17 11:48 02/17/17 11:48 02/17/17 11:48 02/17/17 11:48 02/17/17 11:48 Intake & Output 02/16/17 02/17/17 02/18/17 06:59 06:59 06:59 Intake Total 2027 Output Total 200 Balance 1828 Weight 168.5 kg General appearance: PRESENT: no acute distress, disheveled, morbidly obese, well -developed, well-nourished Head exam: PRESENT: atraumatic, normocephalic Eye exam: PRESENT: EOMI. ABSENT: conjunctival injection, scleral icterus Mouth exam: PRESENT: moist, neck supple Neck exam: PRESENT: full ROM. ABSENT: tenderness Respiratory exam: PRESENT: crackles. ABSENT: accessory muscle use, rales, unlabored, wheezes Cardiovascular exam: PRESENT: RRR. ABSENT: systolic murmur Pulses: PRESENT: normal radial pulses, +1 pedal pulses bilateral Vascular exam: PRESENT: other - chronic acrocyanotic changes to the BLE's GI/Abdominal exam: PRESENT: normal bowel sounds, soft, other - massive pannus. ABSENT: tenderness Extremities exam: PRESENT: calf tenderness - left Musculoskeletal exam: PRESENT: ambulatory, full ROM Neurological exam: PRESENT: alert, awake, oriented to person, oriented to place , oriented to time, oriented to situation Psychiatric exam: PRESENT: flat affect, normal mood Skin exam: PRESENT: erythema, warm Results Laboratory Results: 02/17/17 05:08 02/17/17 05:08 02/17/17 02/17/17 02/17/17 03:33 05:08 05:08 WBC 12.0 H RBC 4.73 Hgb 12.8 Hct 40.9 MCV 86 MCH 27.1 MCHC 31.3 L RDW 15.4 H Plt Count 338 Seg Neutrophils % 61.0 Lymphocytes % 28.1 Monocytes % 8.5 Eosinophils % 2.0 Basophils % 0.4 Absolute Neutrophils 7.3 Absolute Lymphocytes 3.4 Absolute Monocytes 1.0 Absolute Eosinophils 0.2 Absolute Basophils 0.1 Sodium 138.4 Potassium 4.0 Chloride 106 Carbon Dioxide 23 Anion Gap 9 BUN 14 Creatinine 0.86 Est GFR ( Amer) > 60 Est GFR (Non-Af Amer) > 60 Glucose 106 Calcium 8.8 Triglycerides 173 H Cholesterol 177.30 LDL Cholesterol Direct 109 H VLDL Cholesterol 34.6 H HDL Cholesterol 49 Urine Color YELLOW Urine Appearance SLIGHTLY-CLOUDY Urine pH 5.0 Ur Specific [place] > 1.060 Urine Protein NEGATIVE Urine Glucose (UA) NEGATIVE Urine Ketones NEGATIVE Urine Blood SMALL H Urine Nitrite POSITIVE H Ur Leukocyte Esterase NEGATIVE Urine WBC (Auto) 1 Urine RBC (Auto) 2 02/17/17 11:43 Troponin I < 0.012 Impressions: Chest X-Ray 02/16/17 22:57 IMPRESSION: No acute findings. Likely pericardial cyst adjacent to the right heart border. Head CT 02/16/17 22:57 IMPRESSION: NORMAL BRAIN CT WITHOUT CONTRAST. Guidance Fluoroscopy 02/17/17 00:00 IMPRESSION: SUCCESSFUL PLACEMENT OF A 5 FR DUAL LUMEN 39 CM PICC IN THE right basilic VEIN. Interventional Vascular Procedure 02/17/17 00:00 IMPRESSION: SUCCESSFUL PLACEMENT OF A 5 FR DUAL LUMEN 39 CM PICC IN THE right basilic VEIN. PICC Line Insertion 02/17/17 00:00 IMPRESSION: SUCCESSFUL PLACEMENT OF A 5 FR DUAL LUMEN 39 CM PICC IN THE right basilic VEIN. Chest/Abdomen CTA 02/17/17 00:02 IMPRESSION: No significant contrast CT abnormality of the chest. Status: Imported from PACS Assessment & Plan - Diagnosis (1) Precordial chest pain Is this a current diagnosis for this admission?: YesPlan: unclear etiology but doesn't appear to be cardiac in nature, likely MSK given her massive frame (2) Rt facial numbness Is this a current diagnosis for this admission?: YesPlan: unclear etiology, possible TIA with workup underway, other considerations include hypercapnea from undiagnosed sleep apnea, B12 deficiency, hypothyroid, Mg or phos def (3) Stasis dermatitis of both legs Is this a current diagnosis for this admission?: YesPlan: continue empiric abx but only for short course as they are already looking much better without open wounds, no heat and no gross erythema. (4) Diabetes mellitus type 2 in obese Is this a current diagnosis for this admission?: Yes (5) Chronic acquired lymphedema Is this a current diagnosis for this admission?: Yes (6) Chronic pain disorder Is this a current diagnosis for this admission?: Yes - Time Time Spent with patient: 25-34 minutes Medications reviewed and adjusted accordingly: Yes
[2017-02-17] MEDS ORDERED: NORMAL SALINE 10 ML SDV (AFTER EACH USE) IV PRN (14:47)
[2017-02-17 15:45] LABS: PHOSPHORUS 3.2 mg/dL (2.5-4.5)
[2017-02-17 16:49] LABS: ARTERIAL BLOOD BASE EXCESS -0.1 mmol/L
--- NOTE | 2017-02-17 17:06 | RADIOLOGY REPORT (SQ) ---
EXAM DESCRIPTION: CAROTID DOPPLER COMPLETED DATE/TIME: 02/17/2017 4:08 pm REASON FOR STUDY: RT FACIAL NUMBNESS COMPARISON: None. TECHNIQUE: Grayscale ultrasound, Doppler velocity and spectra, and color Doppler images acquired of the extra-cranial carotid and vertebral arteries. Images stored on PACS. LIMITATIONS: None. FINDINGS: RIGHT CAROTID CCA Velocities: Within normal limits. ICA Velocities Peak systolic 97 centimeters/second. End diastolic 37 centimeters/second. Proximal ICA/CCA peak systolic ratio 0.9. There is minimal plaque in the right carotid bulb. LEFT CAROTID CCA Velocities: Within normal limits. ICA Velocities Peak systolic 69 centimeters/second. End diastolic 29 centimeters/second. Proximal ICA/CCA peak systolic ratio 0.8. There is mild, slightly heterogeneous, slightly irregular plaque in carotid bulb and at the origin of the internal carotid. VERTEBRAL ARTERIES: Antegrade flow. Normal waveforms. SUBCLAVIAN ARTERIES: No finding. OTHER: No other significant finding. IMPRESSION: There are mild atherosclerotic changes with no hemodynamically significant lesion. COMMENT: Quality ID #[id number]: Velocity criteria are extrapolated from the diameter data as defined by t he Society of Radiologists in Ultrasound Consensus Conference. Radiology 2003: 229; 340-346. TECHNICAL DOCUMENTATION: JOB ID: [id number] [employer]- All Rights Reserved
[2017-02-17] MEDS: VANCOMYCIN HCL 2,000 MG in DEXTROSE 5%-WATER 500 ML IV SCH (18:19)
--- NOTE | 2017-02-17 21:40 | RADIOLOGY REPORT (SQ) ---
EXAM DESCRIPTION: MRI HEAD COMBO COMPLETED DATE/TIME: 02/17/2017 9:20 pm REASON FOR STUDY: RT FACIAL NUMBNESS COMPARISON: CT dated 02/16/2017. TECHNIQUE: Multiplanar imaging includes noncontrasted T1, T2, FLAIR, diffusion with ADC map and post gadolinium contrast T1 sequences. Images stored on PACS. CONTRAST TYPE AND DOSE: 20 mL Multihance. RENAL FUNCTION: GFR > 60. LIMITATIONS: None. FINDINGS: ANATOMY: No anomalies. Normal vascular flow voids. Pituitary fossa normal. CSF SPACES: Normal in size and contour. No hemorrhage. CEREBRUM: Sulci and gyri normal in size and contour. Normal white matter signal on FLAIR imaging. No evidence of hemorrhage, mass, or extraaxial fluid collection. No abnormal enhancement post contrast. POSTERIOR FOSSA: No signal alteration. No hemorrhage. No edema, masses, or mass effect. Internal atif tory canals, cerebellopontine angles, mastoids normal. No enhancing lesions. No abnormal enhancement post contrast. DIFFUSION IMAGING: Negative for acute or subacute infarction. ORBITS: No masses. Globes normal. PARANASAL SINUSES: No fluid levels. Mucosa normal. OTHER: No other significant finding. IMPRESSION: NORMAL MRI OF THE BRAIN WITHOUT AND WITH INTRAVENOUS GADOLINIUM CONTRAST. TECHNICAL DOCUMENTATION: JOB ID: [id number] - [employer]- All Rights Reserved
--- NOTE | 2017-02-17 21:41 | EKG REPORT ---
SEVERITY:- NORMAL ECG - SINUS RHYTHM : Confirmed by: Adri Calvert 17-Feb-2017 21:40:29
--- NOTE | 2017-02-17 21:43 | RADIOLOGY REPORT (SQ) ---
EXAM DESCRIPTION: MRA HEAD WITHOUT COMPLETED DATE/TIME: 02/17/2017 9:20 pm REASON FOR STUDY: RT FACIAL NUMBNESS COMPARISON: None. TECHNIQUE: Axial 3-D [id number] acquisition imaging performed through the brain in the area of t he [place] of [place]. Images reformatted using 3-D MIPS. LIMITATIONS: None. FINDINGS: SOURCE IMAGES: No unexpected findings on source images. No large masses. 3-D MIP: No aneurysm. No occlusions. No significant stenosis. OTHER: No other significant finding. IMPRESSION: NORMAL MRA OF THE [place]. TECHNICAL DOCUMENTATION: JOB ID: [id number] [employer]- All Rights Reserved
[2017-02-17] MEDS ORDERED: NORMAL SALINE 10 ML SDV (SCHEDULED) IV SCH (22:00)
[2017-02-18] MEDS: VANCOMYCIN HCL 2,000 MG in DEXTROSE 5%-WATER 500 ML IV SCH (05:01)
[2017-02-18] MEDS: CEFAZOLIN 2 GM/D5W RTU 2 GM/50 ML RTUPB IV SCH (05:01)
[2017-02-18] MEDS: HEPARIN SOD (PORCINE) 5,000 UNIT/ML 1 ML SYRINGE SUBCUT SCH (05:01)
[2017-02-18 10:18] VITALS: BP 151/98
--- NOTE | 2017-02-18 15:20 | PDOC DISCHARGE SUMMARY ---
General - Admit/Disc Date/PCP Admission Date/Primary Care Provider: 02/17/17 03:25 Discharge Date: 02/18/17 - Discharge Diagnosis (1) Precordial chest pain Is this a current diagnosis for this admission?: YesSummary: likely MSK, r/o'd for acute ischemia. chest pain free since admission (2) Rt facial numbness Is this a current diagnosis for this admission?: YesSummary: resolved, did not recur and no etiology ever elucidated. MRI/A negative and lab eval unremarkable. if recurs then need to consider [facility] or [facility] and nocturnal hypercapnea. (3) Stasis dermatitis of both legs Is this a current diagnosis for this admission?: YesSummary: relatively mild but did improve with abx, will continue a short course of keflex and f/u with her PCP in one week. consider evaluation at lymphedema clinic. (4) Diabetes mellitus type 2 in obese Is this a current diagnosis for this admission?: Yes (5) Chronic acquired lymphedema Is this a current diagnosis for this admission?: Yes (6) Chronic pain disorder Is this a current diagnosis for this admission?: Yes - Additional Information Resuscitation Status: Full Code Discharge Diet: As Tolerated Discharge Activity: Activity As Tolerated Home Medications: Albuterol Sulfate [Proair HFA] 2 puff IH Q4HP PRN 02/17/17 Atorvastatin Calcium [Lipitor 40 mg Tablet] 40 mg PO QHS 02/17/17 Buspirone HCl [Buspar 15 mg Tablet] 30 mg PO BID 02/17/17 Clonidine HCl [Catapres 0.2 mg Tablet] 0.2 mg PO TIDP PRN 02/17/17 Gabapentin [Neurontin 400 mg Capsule] 1,200 mg PO Q8 02/17/17 Metformin HCl [Metformin HCl ER] 500 mg PO QAM 02/17/17 Morphine Sulfate [Morphine Ir 15 mg Tablet] 15 mg PO TIDP PRN 02/17/17 Morphine Sulfate [Morphine Sulfate ER] 15 mg PO Q8 02/17/17 Nortriptyline HCl [Pamelor 25 mg Capsule] 25 mg PO TID 02/17/17 Pantoprazole Sodium [Protonix] 40 mg PO QAM 02/17/17 Tizanidine HCl [Zanaflex 4 mg Tablet] 4 mg PO TIDP PRN 02/17/17 Topiramate [Topamax 25 mg Tablet] 50 mg PO QHS 02/17/17 Zolpidem Tartrate [Ambien Cr] 25 mg PO QHS 02/17/17 Aspirin [Ecotrin 81 mg EC Tablet] 81 mg PO DAILY tabec 02/18/17 Cephalexin Monohydrate [Keflex 500 mg Capsule] 500 mg PO TID #21 capsule History of Present Illness Patient complains of: facial numbness History of Present Illness: GIOVANNI GROVE is a 36 year old morbidly obese female with chronic bilateral lower extremity lymphedema, along with recurrent episodes of cellulitis involving both lower extremities, although more commonly in the left lower extremity who presents to the emergency room for evaluation of above complaints (headache, chest pain). Hospital Course Hospital Course: Concomitant medical problems include type 2 diabetes mellitus, morbid obesity, chronic back pain, anxiety and depression, without suicidal or homicidal ideation, asthma, which rarely bothers her, mild reflux, mild psoriasis, primarily involving her lower extremities, and easy bruising. She presents with a number of complaints all seeming to arise approximately 2 PM on the . Headache, which is mostly resolved. Blurred vision likewise. Right arm went numb followed by her left arm and left leg. Most of this has resolved. Still complaining of right facial numbness, along with slight decrease in hearing in her right ear. Also noted the onset of "heaviness" in her substernal region, radiating to her left arm, increasing with deep breath and/or sternal compression. Was noted to be somewhat confused and not responding normally in the emergency room, but this is all basically resolved. Some nausea but no vomiting. Positive shaking chills. No diarrhea or dysuria. Basically unremarkable cardiac disease history, with no previous myocardial infarction, congestive heart failure, pulmonary embolus, or DVT. Negative exercise treadmill study in 2005. Family history of early coronary artery disease in her father. No prior seizure stroke TIA or mini stroke. Hospitalized the sixth through the ninth of this month at [facility] for cellulitis involving her left lower extremity. Hospitalized on our service the September of this year, with discharge diagnoses including bilateral lower leg cellulitis, hypokalemia, and pneumonia. Chronic pain disorder." workup is underway and not yet completed. CTA chest was negative for acute disease. Tp's neg x3. echo performed but not yet read. MRI/A negative.. I found her ambulating in the room, easily winded and in general feeling better. she denies chest pain currently, has chronic burning, sharp, stabbing, constant nonradiating pain in her legs worse with standing and improved with rest and pain meds. she feels back to baseline and would like to go home. no recurrence of her paresthesias and overall her condition back to baseline. her eval is negative for acute pathology. Physical Exam Vital Signs: Temp Pulse Resp BP Pulse Ox 98.4 F 103 H 18 151/98 H 100 02/18/17 10:15 02/18/17 10:15 02/18/17 10:15 02/18/17 10:15 02/18/17 10:15 Intake & Output 02/17/17 02/18/17 02/19/17 06:59 06:59 06:59 Intake Total 2027 1919 Output Total 200 Balance 1827 1919 Weight 168.5 kg General appearance: PRESENT: morbidly obese, well-developed, well-nourished Head exam: PRESENT: atraumatic, normocephalic Respiratory exam: PRESENT: clear to auscultation zahira. ABSENT: accessory muscle use Neurological exam: PRESENT: alert, awake, oriented to person, oriented to place , oriented to time, oriented to situation Psychiatric exam: PRESENT: appropriate affect, normal mood Results Laboratory Results: 02/17/17 05:08 02/17/17 05:08 02/17/17 02/17/17 02/17/17 14:40 14:40 16:25 Carbonic Acid 1.03 L HCO3/H2CO3 Ratio 22:1 ABG pH 7.45 ABG pCO2 34.1 L ABG pO2 103.6 H ABG HCO3 23.2 ABG O2 Saturation 98.0 ABG Base Excess -0.1 FiO2 ROOM AIR Phosphorus 3.2 Vitamin B12 316.0 TSH 0.98 02/17/17 11:43 Troponin I < 0.012 Impressions: Chest X-Ray 02/16/17 22:57 IMPRESSION: No acute findings. Likely pericardial cyst adjacent to the right heart border. Head CT 02/16/17 22:57 IMPRESSION: NORMAL BRAIN CT WITHOUT CONTRAST. Guidance Fluoroscopy 02/17/17 00:00 IMPRESSION: SUCCESSFUL PLACEMENT OF A 5 FR DUAL LUMEN 39 CM PICC IN THE right basilic VEIN. Interventional Vascular Procedure 02/17/17 00:00 IMPRESSION: SUCCESSFUL PLACEMENT OF A 5 FR DUAL LUMEN 39 CM PICC IN THE right basilic VEIN. PICC Line Insertion 02/17/17 00:00 IMPRESSION: SUCCESSFUL PLACEMENT OF A 5 FR DUAL LUMEN 39 CM PICC IN THE right basilic VEIN. Chest/Abdomen CTA 02/17/17 00:02 IMPRESSION: No significant contrast CT abnormality of the chest. Brain MRI with MRA 02/17/17 03:30 IMPRESSION: NORMAL MRA OF THE [place]. Carotid Doppler Study 02/17/17 03:30 IMPRESSION: There are mild atherosclerotic changes with no hemodynamically significant lesion. Head MRI 02/17/17 03:30 IMPRESSION: NORMAL MRI OF THE BRAIN WITHOUT AND WITH INTRAVENOUS GADOLINIUM CONTRAST. Qualifiers PATEINT BEING DISCHARGED WITH ANY OF THE FOLLOWING DIAGNOSIS?: No VTE patient discharged on overlapping Therapy?: No Reason(s) for not prescribing Overlap Therapy:: Not indicated Plan Discharge Plan: as above; return to the ED for worsening or recurrent symptoms. f/u with PCP in one week.
== END 2017-02-18 11:09 | disposition home or self-care (01) | DRG 313 ==
LOC: ER 22:12 → EH 02-17 02:15 → UNDOADMIN 02-17 02:15 → EH 02-17 03:25 → 3S 02-17 03:37 → EH 02-17 03:37
PROVIDERS: ADMIT Family Medicine; ATTEND Family Medicine
PROC: 02HV33Z Insertion of Infusion Device into Superior Vena Cava, Percutaneous Approach (ICD-10-PCS; principal; 2017-02-17)
PROC: B5181ZA Fluoroscopy of Superior Vena Cava using Low Osmolar Contrast, Guidance (ICD-10-PCS; 2017-02-17)
PROC: B548ZZA Ultrasonography of Superior Vena Cava, Guidance (ICD-10-PCS; 2017-02-17)
DX: R07.2 Precordial pain (principal); L03.116 Cellulitis of left lower limb; L03.115 Cellulitis of right lower limb; Z68.44 Body mass index [BMI] 60.0-69.9, adult; I87.2 Venous insufficiency (chronic) (peripheral); E11.9 Type 2 diabetes mellitus without complications; E66.01 Morbid (severe) obesity due to excess calories; I89.0 Lymphedema, not elsewhere classified; M54.9 Dorsalgia, unspecified; G89.29 Other chronic pain; F41.9 Anxiety disorder, unspecified; F32.9 Major depressive disorder, single episode, unspecified; Z79.899 Other long term (current) drug therapy; Z79.82 Long term (current) use of aspirin; Z79.84 Long term (current) use of oral hypoglycemic drugs
CPT/HCPCS: 36415; 36569; 36600; 70450; 70544; 70553; 71010; 71275; 76937; 77001; 80048; 80053; 80061; 81001; 82550; 82553; 82607; 82803; 82962; 83036; 83735; 84100; 84443; 84484; 84703; 85025; 85610; 85730; 87040; 93005; 93010; 93880; 96374; 96375; 99285; J0690; J1200; J1642; J1644; J2270; J2405; J2543; J2765; J3370; J3490; J7030; J7060

== ENCOUNTER 2018-10-18 08:37 | Day surgery (SDC) | payer OTHER ==
[~2018-10-18 08:37] MED LIST: PROPOFOL INJ 200 MG/20 ML VIAL IV ONE
--- NOTE | 2018-10-18 11:27 | Operative Report ---
Operative Report DATE OF SURGERY: 10/18/18 Operative Report: The risks, benefits and alternatives of the procedure including the risk of bleeding, perforation requiring surgery have been explained to the patient in detail and informed consent has been obtained. Patient is taken back to the operating room and placed in a left, lateral decubital position. Timeout was called. Propofol medication is administered. Rectal examination is done which did not reveal any masses, tears or fissures. An Olympus videoscope was introduced into the patient's rectum. The scope was then carefully advanced all the way to the cecum. The cecum was identified by the usual anatomical landmarks including the ileocecal valve as well as the appendiceal office. Photodocumentation is obtained the scope was then sequentially pulled back via the various segments of the colon including the ascending colon, hepatic flexure, transverse colon, splenic flexure, descending colon and finally into the rectosigmoid portions of the colon. Retroflexion maneuver was performed. The risks benefits and alternatives of the procedure explained to the patient in detail and informed consent is obtained.A GIF Olympus video scope was inserted into the patient's mouth and hypopharynx, the esophagus is identified intubated and insufflated, the scope was then advanced through the esophagus stomach and duodenum, retroflexion maneuver is done, the esophagus stomach and first and second portions of the duodenum examined. PREOPERATIVE DIAGNOSIS: Change of bowel habits. Epigastric pain POSTOPERATIVE DIAGNOSIS: Mild inflammation noted on the right-hand side of the colon status post biopsy. Gastritis status post biopsy. Hiatal hernia OPERATION: Colonoscopy with biopsy. EGD with biopsy SURGEON: AMINA MCFADDEN ANESTHESIA: LMAC TISSUE REMOVED OR ALTERED: As noted above. COMPLICATIONS: None. ESTIMATED BLOOD LOSS: None. INTRAOPERATIVE FINDINGS: As noted above. PROCEDURE: Patient tolerated the procedure well. No immediate postprocedure complications are noted. Patient discharged in good condition. Discharge date 10/18/2018. Discharge diet: Regular. Discharge activity: Regular. 2-3-week follow-up to discuss findings. Patient is instructed call the office or proceed to the emergency room should there be any further problems or questions. Wait on the pathology.
[2018-10-18 11:58] VITALS: BP 135/79
== END 2018-10-18 11:50 | disposition home or self-care (01) ==
LOC: OROUT 08:37
PROVIDERS: ATTEND Internal Medicine Gastroenterology
DX: K44.9 Diaphragmatic hernia without obstruction or gangrene (principal); K52.9 Noninfective gastroenteritis and colitis, unspecified; K29.50 Unspecified chronic gastritis without bleeding; J45.909 Unspecified asthma, uncomplicated; E66.01 Morbid (severe) obesity due to excess calories; Z68.45 Body mass index [BMI] 70 or greater, adult; Z79.899 Other long term (current) drug therapy; Z79.51 Long term (current) use of inhaled steroids; Z79.84 Long term (current) use of oral hypoglycemic drugs
CPT/HCPCS: 43239; 45380; 82962; 88342 ×2; 88305 ×2; J2704; 813

== ENCOUNTER 2019-01-29 10:16 | Inpatient (IN) | payer OTHER ==
[2019-01-29] MEDS ORDERED: NORMAL SALINE 1000 ML 1,000 ML IV ONE ×2 (10:54→12:17)
[2019-01-29] MEDS ORDERED: ONDANSETRON HCL INJ/PF 4 MG/2 ML SDV IV ONE (10:58)
[2019-01-29] MEDS ORDERED: KETOROLAC TROMETHAMINE INJ/PF 30 MG/1 ML SDV IV ONE (10:58)
--- NOTE | 2019-01-29 10:58 | ER Document Report ---
ED Medical Screen (RME) - General Chief Complaint: Fever Stated Complaint: BODY PAIN/FEVER Time Seen by Provider: 01/29/19 10:49 Primary Care Provider: JOHN RUIZ MD [Primary Care Provider] - Follow up as needed TRAVEL OUTSIDE OF THE [place] IN LAST 30 DAYS: No - HPI Notes: 01/29/19 10:55 Patient is a 38-year-old female with a history of hypertension, morbid obesity, lymphedema who presents complaining of increased pain to her legs bilaterally with development of fever, body ache, nausea without vomiting, and diarrhea that began yesterday. Patient is scheduled to see the lymphedema clinic. She is able to eat and drink, but does have a decreased p.o. intake. She is urinating normally. Patient denies any recent illness otherwise. Denies LINARES, neck pain, URI, CP, SOB, cough, wheeze, abd pain, dysuria. I have treated and performed a rapid initial assessment of this patient. A comprehensive ED assessment and evaluation of the patient, analysis of test results and completion of medical decision making process will be conducted by additional ED providers. PHYSICAL EXAMINATION: GENERAL: Well-appearing, well-nourished and in no acute distress. A&Ox4. Ans wers questions appropriately. LUNGS: Breath sounds clear to auscultation bilaterally and equal. No wheezes rales or rhonchi. HEART: Regular rate and rhythm without murmurs, rubs, gallops. Extremities: significant lymphedema b/l LE's with erythema noted L>R. PSYCH: Normal mood, normal affect. - Related Data Allergies/Adverse Reactions: doxycycline Adverse Reaction (Unknown, Verified 01/29/19 10:18) Past Medical History - Past Medical History Cardiac Medical History: Denies: Hx Congestive Heart Failure, Hx Coronary Artery Disease, Hx DVT, Hx Heart Attack, Hx Hypercholesterolemia, Hx Hypertension, Hx Pulmonary Embolism Pulmonary Medical History: Reports: Hx Asthma Denies: Hx Bronchitis, Hx COPD, Hx Pneumonia, Hx Sleep Apnea Neurological Medical History: Denies: Hx Cerebrovascular Accident, Hx Seizures Endocrine Medical History: Reports: Hx Diabetes Mellitus Type 2. Denies: Hx Diabetes Mellitus Type 1, Hx Hyperthyroidism, Hx Hypothyroidism GI Medical History: Reports: Hx Gastroesophageal Reflux Disease. Denies: Hx Cirrhosis, Hx Hepatitis Musculoskeltal Medical History: Reports Hx Arthritis - Chronic back pain Skin Medical History: Reports Hx Psoriasis - Mild, primarily left lower extremity Psychiatric Medical History: Reports: Hx Depression Infectious Medical History: Denies: Hx C-Diff, Hx Hepatitis, Hx MRSA Past Surgical History: Reports: Hx Section - 2, Hx Cholecystectomy, Hx Orthopedic Surgery - Foot surgery 2. Denies: Hx Hysterectomy - Immunizations Hx Diphtheria, Pertussis, Tetanus Vaccination: Yes History of Influenza Vaccine for 05/2017 - 10/2017 Season: Yes Influenza Administration Date for 05/2017 - 10/2017 Season: 05/22/18 Physical Exam - Vital signs Vitals: Temp Pulse Resp BP Pulse Ox 99.9 F 119 H 24 H 121/53 L 92 01/29/19 10:21 01/29/19 10:21 01/29/19 10:21 01/29/19 10:21 01/29/19 10:21 Course - Vital Signs Vital signs: Temp Pulse Resp BP Pulse Ox 99.9 F 119 H 24 H 121/53 L 92 01/29/19 10:21 01/29/19 10:21 01/29/19 10:21 01/29/19 10:21 01/29/19 10:21 Doctor's Discharge - Discharge Referrals: JOHN RUIZ MD [Primary Care Provider] - Follow up as needed
[2019-01-29 11:53] LABS: INTERNATIONAL RATION (INR) 1.06; PROTHROMBIN TIME 14.3 SEC (11.4-15.4)
[2019-01-29 11:56] LABS: APPEARANCE,URINE CLOUDY; BILIRUBIN,URINE NEGATIVE (NEGATIVE); COLOR,URINE AMBER; GLUCOSE, URINE NEGATIVE (NEGATIVE); KETONES,URINE NEGATIVE (NEGATIVE); LEUKOCYTE ESTERASE,URINE NEGATIVE (NEGATIVE); NITRITE,URINE POSITIVE (NEGATIVE); PROTEIN,URINE NEGATIVE (NEGATIVE); URINE SPECIFIC GRAVITY 1.017; UROBILINOGEN,URINE NEGATIVE mg/dL (<2.0)
[2019-01-29 12:03] LABS: ALANINE AMINOTRANSFERASE 18 U/L (9-52); ALKALINE PHOSPHATASE 74 U/L (38-126); ASPARTATE AMINO TRANSFERASE 25 U/L (14-36); BILIRUBIN,DIRECT 0.4 mg/dL (0.0-0.4); BILIRUBIN,TOTAL 0.7 mg/dL (0.2-1.3); BLOOD UREA NITROGEN 12 mg/dL (7-20); CALCIUM 9.3 mg/dL (8.4-10.2); CARBON DIOXIDE 19 mmol/L (22-30); CHLORIDE 94 mmol/L (98-107); GLUCOSE 130 mg/dL (75-110); POTASSIUM 3.9 mmol/L (3.6-5.0); SODIUM 132.9 mmol/L (137-145); TOTAL PROTEIN 7.4 g/dL (6.3-8.2)
[2019-01-29] MEDS ORDERED: VANCOMYCIN HCL INJ 1000 MG VIAL IV ONE (12:07)
[2019-01-29] MEDS ORDERED: CEFTRIAXONE 1 GM/D5W RTU 1 GM/50 ML RTUPB IV ONE (12:07)
[2019-01-29 12:09] LABS: ANION GAP 20 (5-19)
[2019-01-29 12:29] LABS: HEMATOCRIT 37.4 % (36.0-47.0); HEMOGLOBIN 12.4 g/dL (12.0-15.5); MEAN CORPUSCULAR HEMOGLOBIN 28.2 pg (27.0-33.4); MEAN CORPUSCULAR HGB CONC 33.1 g/dL (32.0-36.0); MEAN CORPUSCULAR VOLUME 85 fl (80-97); RED BLOOD COUNT 4.39 10^6/uL (3.72-5.28); RED CELL DISTRIBUTION WIDTH 14.9 % (11.5-14.0); WHITE BLOOD COUNT 29.4 10^3/uL (4.0-10.5)
[2019-01-29 12:57] LABS: PLATELET COUNT 289 10^3/uL (150-450)
[2019-01-29 12:58] LABS: ABSOLUTE LYMPHOCYTES# (MANUAL) 1.8 10^3/uL (0.5-4.7); ABSOLUTE MONOCYTES # (MANUAL) 0.9 10^3/uL (0.1-1.4); BAND NEUTROPHILS % (MANUAL) 8 % (3-5); BASOPHILS % (MANUAL) 1 % (0-2); EOSINOPHILS % (MANUAL) 0 % (0-6); LYMPHOCYTES % (MANUAL) 6 % (13-45); MONOCYTES % (MANUAL) 3 % (3-13); SEGMENTED NEUTROPHILS % (MAN) 82 % (42-78); TOTAL CELLS COUNTED 100
--- NOTE | 2019-01-29 13:00 | ER Document Report ---
ED General - General Chief Complaint: Fever Stated Complaint: BODY PAIN/FEVER Time Seen by Provider: 01/29/19 10:49 Primary Care Provider: JOHN RUIZ MD [Primary Care Provider] - Follow up as needed Information source: Patient Notes: 38-year-old female with past medical history as recorded including chronic pain and lymphedema who presents yesterday with the onset of fevers, nausea, increased redness of the left lower extremity, diarrhea x2, body aches, and headache. She denies cough or sore throat. No runny nose or congestion. No abdominal or flank pain. Patient did complete a course of Bactrim she states for cellulitis of her lower legs 1 month ago. She states she has had some increased bilateral leg redness and swelling, left greater than right. TRAVEL OUTSIDE OF THE [place] IN LAST 30 DAYS: No - Related Data Allergies/Adverse Reactions: doxycycline Adverse Reaction (Unknown, Verified 01/29/19 10:18) Past Medical History - Social History Smoking Status: Never Smoker Family History: COPD, Hypertension Patient has suicidal ideation: No Patient has homicidal ideation: No - Past Medical History Cardiac Medical History: Denies: Hx Congestive Heart Failure, Hx Coronary Artery Disease, Hx DVT, Hx Heart Attack, Hx Hypercholesterolemia, Hx Hypertension, Hx Pulmonary Embolism Pulmonary Medical History: Reports: Hx Asthma Denies: Hx Bronchitis, Hx COPD, Hx Pneumonia, Hx Sleep Apnea Neurological Medical History: Denies: Hx Cerebrovascular Accident, Hx Seizures Endocrine Medical History: Reports: Hx Diabetes Mellitus Type 2. Denies: Hx Diabetes Mellitus Type 1, Hx Hyperthyroidism, Hx Hypothyroidism Renal/ Medical History: Denies: Hx Peritoneal Dialysis GI Medical History: Reports: Hx Gastroesophageal Reflux Disease. Denies: Hx Cirrhosis, Hx Hepatitis Musculoskeletal Medical History: Reports Hx Arthritis - Chronic back pain Skin Medical History: Reports Hx Psoriasis - Mild, primarily left lower extremity Psychiatric Medical History: Reports: Hx Depression Infectious Medical History: Denies: Hx C-Diff, Hx Hepatitis, Hx MRSA Past Surgical History: Reports: Hx Section - 2, Hx Cholecystectomy, Hx Orthopedic Surgery - Foot surgery 2. Denies: Hx Hysterectomy - Immunizations Hx Diphtheria, Pertussis, Tetanus Vaccination: Yes Hx Pneumococcal Vaccination: 05/22/12 Review of Systems - Review of Systems Constitutional: Fever EENT: denies: Eye discharge, Nose congestion, Nose discharge Cardiovascular: denies: Chest pain, Palpitations Respiratory: denies: Short of breath Gastrointestinal: denies: Vomiting Genitourinary: denies: Dysuria Musculoskeletal: Leg swelling Skin: Rash Neurological/Psychological: Other - no slurred speech -: Yes All other systems reviewed and negative Physical Exam - Vital signs Vitals: Temp Pulse Resp BP Pulse Ox 99.9 F 119 H 24 H 121/53 L 92 01/29/19 10:21 01/29/19 10:21 01/29/19 10:21 01/29/19 10:21 01/29/19 10:21 Notes: Reviewed vital signs and nursing note as charted by RN. CONSTITUTIONAL: Alert and oriented and responds appropriately to questions. Well-appearing; well-nourished HEAD: Normocephalic; atraumatic EYES: Sclerae non-icteric ENT: Normal nose; no rhinorrhea; moist mucous membranes; pharynx without lesions noted NECK: Supple without meningismus; non-tender; no cervical lymphadenopathy, no masses CARD: Regular rate and rhythm; no murmurs; symmetric distal pulses RESP: Normal chest excursion without splinting or tachypnea; breath sounds clear and equal bilaterally; no wheezes, no rhonchi, no rales ABD/GI: Normal bowel sounds; non-distended; soft, non-tender; no palpable organomegaly or masses BACK: The back appears normal and is non-tender to palpation EXT: Normal ROM in all joints; non-tender to palpation; bilateral lower extremity lymphedema with some bilateral redness and ruddiness; extension of the redness to the left lower leg up to the left medial thigh SKIN: No acute lesions noted NEURO: CN 2-12 intact; 5/5 bilateral upper and lower extremity strength with sensation intact to light touch PSYCH: The patient's mood and manner are appropriate. Grooming and personal hygiene are appropriate. Course - Re-evaluation Re-evalutation: Given the history and physical examination, we will order basic labs, urine analysis, blood culture, lactic acid, provide fluids, and reassess. Patient's ideal body weight is 116 pounds. She requires around 1500 mL of normal saline within the full 6 hours. 01/29/19 12:57 Labs as recorded. Urine analysis as recorded. Given the constellation of symptoms with the increased leg cellulitis with the urine analysis that is nitrite positive, we will provide broad-spectrum antibiotics. Lactic acid initially as recorded. Repeat lactic acid is pending. Given what appears to be a cellulitis and/or urinary tract infection, with diffuse body aches, with no change in mental status, with a mild frontal headache, I do believe acute bacterial meningitis to be unlikely. 01/29/19 13:02 White blood cell count and labs as recorded. We have provided broad-spectrum antibiotics and fluids. Vital signs are stable. Antipyretics have been given. Patient will be admitted to the IMCU secondary to sepsis. - Vital Signs Vital signs: Temp Pulse Resp BP Pulse Ox 99.9 F 119 H 24 H 121/53 L 92 01/29/19 10:21 01/29/19 10:21 01/29/19 10:21 01/29/19 10:21 01/29/19 10:21 - Laboratory Result Diagrams: 01/29/19 12:10 01/29/19 11:27 Laboratory results interpreted by me: 01/29/19 01/29/19 01/29/19 11:27 11:27 11:27 WBC RDW Seg Neuts % (Manual) Band Neutrophils % Lymphocytes % (Manual) Abs Neuts (Manual) Abs Basophils (Manual) Sodium 132.9 L Chloride 94 L Carbon Dioxide 19 L Anion Gap 20 H Est GFR (Non-Af Amer) 58 L Glucose 130 H Lactic Acid 3.1 H Urine Blood SMALL H Urine Nitrite POSITIVE H 01/29/19 12:10 WBC 29.4 H RDW 14.9 H Seg Neuts % (Manual) 82 H Band Neutrophils % 8 H Lymphocytes % (Manual) 6 L Abs Neuts (Manual) 26.5 H Abs Basophils (Manual) 0.3 H Sodium Chloride Carbon Dioxide Anion Gap Est GFR (Non-Af Amer) Glucose Lactic Acid Urine Blood Urine Nitrite Discharge - Discharge Clinical Impression: Sepsis Qualifiers: Sepsis type: sepsis due to unspecified organism Qualified Code(s): A41.9 - Sepsis, unspecified organism Lower extremity cellulitis Qualifiers: Laterality: right Qualified Code(s): L03.115 - Cellulitis of right lower limb UTI (urinary tract infection) Qualifiers: Urinary tract infection type: site unspecified Hematuria presence: without hematuria Qualified Code(s): N39.0 - Urinary tract infection, site not specified Condition: Fair Disposition: ADMITTED INPATIENT Admitting Provider: Wondafrash (Hospitalist) Unit Admitted: IMCU Referrals: JOHN RUIZ MD [Primary Care Provider] - Follow up as needed
[2019-01-29 13:05] LABS: POIKILOCYTOSIS 1+
[2019-01-29 13:06] LABS: ANISOCYTOSIS SLIGHT; OVALOCYTES 1+; PLATELET CLUMPS PRESENT
[2019-01-29] MEDS: ACETAMINOPHEN 325 MG TABLET PO ONE ×2 (13:16→13:18)
[2019-01-29] MEDS ORDERED: DEXTROSE 50%-WATER 25 GM/50 ML DISP.SYRIN IV PRN ×2 (14:12)
[2019-01-29] MEDS ORDERED: OXYCODONE-ACETAMINOPHEN 5-325 MG TABLET PO PRN (14:12)
[2019-01-29] MEDS ORDERED: ONDANSETRON HCL INJ/PF 4 MG/2 ML SDV IV PRN (14:12)
[2019-01-29] MEDS ORDERED: GLUCAGON,HUMAN RECOMB 1 MG INJ IM PRN (14:12)
[2019-01-29] MEDS ORDERED: DEXTROSE 40% GEL 15 GM TUBE PO PRN ×2 (14:12)
--- NOTE | 2019-01-29 14:12 | PDOC H&P ---
History of Present Illness Admission Date/PCP: 01/29/19 13:17 JOHN RUIZ MD History of Present Illness: GIOVANNI GROVE is a 38 year old female patient with past medical history of super morbid obesity with BMI of 79.9, and anxiety disorder, chronic pain and idiopathic bilateral lymphedema and type 2 diabetes mellitus presents with chief complaint of fever, diarrhea headache and generalized body ache of 1 day duration. Patient has been in her usual baseline state of health up until yesterday when she develops the above-mentioned complaints. Of note patient has had recurrent cellulitis of both legs prominently the left leg. Patient has nausea but denies any vomiting. She has headache but no dizziness, blurring of vision or any seizure activity. Her blood work shows market leukocytosis of 29,000 and lactic acid two 3.1. Patient has been started empirically on cefepime and vancomycin and referred to the hospitalist service for admission. Past Medical History Cardiac Medical History: Denies: Congestive Heart Failure, Coronary Artery Disease, DVT, Myocardial Infarction, Hyperlipidema, Hypertension, Pulmonary Embolism Pulmonary Medical History: Reports: Asthma Denies: Bronchitis, Chronic Obstructive Pulmonary Disease (COPD), Pneumonia, Sleep Apnea Neurological Medical History: Denies: Seizures Endocrine Medical History: Reports: Diabetes Mellitus Type 2 Denies: Diabetes Mellitus Type 1, Hyperthyroidism, Hypothyroidism GI Medical History: Reports: Gastroesophageal Reflux Disease Denies: Cirrhosis, Hepatitis Musculoskeltal Medical History: Reports: Arthritis - Chronic back pain Skin Medical History: Reports: Psoriasis - Mild, primarily left lower extremity Psychiatric Medical History: Reports: Depression Hematology: Denies: Anemia Infectious Medical History: Denies: Clostridium Difficile, Methicillin-Resistant Staph Aureus Past Surgical History Past Surgical History: Reports: Section - 2, Cholecystectomy, Ort hopedic Surgery - Foot surgery 2 Denies: Hysterectomy Social History Smoking Status: Never Smoker Frequency of Alcohol Use: None Hx Recreational Drug Use: No Drugs: None Hx Prescription Drug Abuse: No - Advance Directive Resuscitation Status: Full Code Family History Family History: COPD, Hypertension Parental Family History Reviewed: Yes Children Family History Reviewed: Yes Sibling(s) Family History Reviewed.: Yes Medication/Allergy Home Medications: Albuterol Sulfate [Proair HFA] 2 puff IH Q4HP PRN 02/17/17 Atorvastatin Calcium [Lipitor 40 mg Tablet] 40 mg PO QHS 06/29/17 Gabapentin [Neurontin 400 mg Capsule] 1,200 mg PO Q8 02/17/17 Metformin HCl [Metformin ER Gastric] 500 mg PO QAM 02/17/17 Nortriptyline HCl [Pamelor 25 mg Capsule] 25 mg PO TID 02/17/17 Pantoprazole Sodium [Protonix] 40 mg PO QAM 02/17/17 Topiramate [Topamax 25 mg Tablet] 50 mg PO QHS 02/17/17 Zolpidem Tartrate [Ambien Cr] 25 mg PO QHS 02/17/17 Allergies/Adverse Reactions: doxycycline Adverse Reaction (Unknown, Verified 01/29/19 10:18) Review of Systems Constitutional: PRESENT: fever(s), weakness Eyes: ABSENT: visual disturbances Ears: ABSENT: hearing changes Cardiovascular: ABSENT: chest pain, dyspnea on exertion, edema, orthropnea, palpitations Respiratory: ABSENT: cough, hemoptysis Gastrointestinal: PRESENT: diarrhea, nausea Genitourinary: ABSENT: dysuria, hematuria Musculoskeletal: ABSENT: joint swelling Integumentary: ABSENT: rash, wounds Neurological: ABSENT: abnormal gait, abnormal speech, confusion, dizziness, focal weakness, syncope Psychiatric: ABSENT: anxiety, depression, homidical ideation, suicidal ideation Endocrine: ABSENT: cold intolerance, heat intolerance, polydipsia, polyuria Hematologic/Lymphatic: ABSENT: easy bleeding, easy bruising Physical Exam Vital Signs: Temp Pulse Resp BP Pulse Ox 99.8 F 119 H 24 H 121/53 L 92 01/29/19 13:15 01/29/19 10:21 01/29/19 10:21 01/29/19 10:21 01/29/19 10:21 Intake & Output 01/28/19 01/29/19 01/30/19 06:59 06:59 06:59 Intake Total 2049 Balance 2049 Weight 204.5 kg General appearance: PRESENT: no acute distress, cooperative Head exam: PRESENT: atraumatic Mouth exam: PRESENT: moist Neck exam: ABSENT: carotid bruit, JVD, lymphadenopathy, thyromegaly Respiratory exam: PRESENT: clear to auscultation zahira. ABSENT: rales, rhonchi, wheezes Cardiovascular exam: PRESENT: tachycardia Neurological exam: PRESENT: alert, awake, oriented to person, oriented to place, oriented to time, oriented to situation Results Laboratory Results: 01/29/19 12:10 01/29/19 11:27 01/29/19 01/29/19 01/29/19 11:27 11:27 11:27 WBC RBC Hgb Hct MCV MCH MCHC RDW Plt Count Seg Neutrophils % Lymphocytes % Monocytes % Eosinophils % Basophils % Absolute Neutrophils Absolute Lymphocytes Absolute Monocytes Absolute Eosinophils Absolute Basophils Sodium 132.9 L Potassium 3.9 Chloride 94 L Carbon Dioxide 19 L Anion Gap 20 H BUN 12 Creatinine 1.06 Est GFR ( Amer) > 60 Est GFR (Non-Af Amer) 58 L Glucose 130 H Lactic Acid 3.1 H Calcium 9.3 Total Bilirubin 0.7 AST 25 ALT 18 Alkaline Phosphatase 74 Total Protein 7.4 Albumin 4.0 Serum HCG, Qual NEGATIVE Urine Color Urine Appearance Urine pH Ur Specific [place] Urine Protein Urine Glucose (UA) Urine Ketones Urine Blood Urine Nitrite Ur Leukocyte Esterase Urine WBC (Auto) Urine RBC (Auto) 01/29/19 01/29/19 11:27 12:10 WBC 29.4 H RBC 4.39 Hgb 12.4 Hct 37.4 MCV 85 MCH 28.2 MCHC 33.1 RDW 14.9 H Plt Count 289 Seg Neutrophils % Not Reportable Lymphocytes % Not Reportable Monocytes % Not Reportable Eosinophils % Not Reportable Basophils % Not Reportable Absolute Neutrophils Not Reportable Absolute Lymphocytes Not Reportable Absolute Monocytes Not Reportable Absolute Eosinophils Not Reportable Absolute Basophils Not Reportable Sodium Potassium Chloride Carbon Dioxide Anion Gap BUN Creatinine Est GFR ( Amer) Est GFR (Non-Af Amer) Glucose Lactic Acid Calcium Total Bilirubin AST ALT Alkaline Phosphatase Total Protein Albumin Serum HCG, Qual Urine Color ADIEL Urine Appearance CLOUDY Urine pH 6.0 Ur Specific [place] 1.017 Urine Protein NEGATIVE Urine Glucose (UA) NEGATIVE Urine Ketones NEGATIVE Urine Blood SMALL H Urine Nitrite POSITIVE H Ur Leukocyte Esterase NEGATIVE Urine WBC (Auto) 5 Urine RBC (Auto) 6 Assessment and Plan - Diagnosis (1) Sepsis Is this a current diagnosis for this admission?: Yes Plan: Skin origin. Patient has fever, tachycardia, leukocytosis and lactic acidosis. Patient empirically started on cefepime and vancomycin by ER attending. I will start antibiotics to Unasyn. (2) Left leg cellulitis Is this a current diagnosis for this admission?: Yes (3) Chronic acquired lymphedema Is this a current diagnosis for this admission?: Yes Plan: Follow-up with her primary physician. (4) Type 2 diabetes mellitus Is this a current diagnosis for this admission?: Yes Plan: We will continue her metformin and put her on sliding scale. (5) Morbid obesity Is this a current diagnosis for this admission?: Yes Plan: Lifestyle modification advised. - Inpatient Certification Medical Necessity: Significant Comorbidiites Make Outpatient Treatment Too Risky, Need for IV Antibiotics
--- NOTE | 2019-01-29 14:50 | RADIOLOGY REPORT (SQ) ---
EXAM DESCRIPTION: VENOUS UNILATERAL LOWER COMPLETED DATE/TIME: 01/29/2019 2:38 pm REASON FOR STUDY: 14; left lower extremity COMPARISON: None. TECHNIQUE: Dynamic and static vazquez scale and color images acquired of the left leg venous system. Se lected spectral images acquired with additional compression and augmentation maneuvers. The contralat eral common femoral vein and saphenofemoral junction were also imaged. Images stored on PACS. LIMITATIONS: Large body habitus, soft tissue edema FINDINGS: COMMON FEMORAL: Normal phasicity, compression and augmentation. No visualized echogenic ma terial on vazquez scale. No defects on color images. FEMORAL: The mid to distal portions are not visualized due to vessel depth, edema, and body habitus. . Normal compression and augmentation. No visualized echogenic material on vazquez scale. No defects o n color images. POPLITEAL: Normal compression, augmentation. No visualized echogenic material on vazquez scale. No defec ts on color images. CALF VESSELS: Inadequately visualized. GSV and SSV: Normal compression, augmentation. No visualized echogenic material on vazquez scale. No def ects on color images. ANY DEEP VENOUS INSUFFICIENCY: Not evaluated. ANY EVIDENCE OF POPLITEAL CYST: No. OTHER: No other significant finding. CONTRALATERAL COMMON FEMORAL VEIN AND SAPHENOFEMORAL JUNCTION: Normal phasicity, compression and augmentation. No visualized echogenic material on vazquez scale. No de fects on color images. IMPRESSION: Examination is significantly limited by large body habitus and soft tissue edema. The m id to distal portions of the femoral vein and the calf veins are inadequately visualized. Within thi s limitation, no evidence of deep venous thrombosis in the left lower extremity. TECHNICAL DOCUMENTATION: JOB ID: [id number] [employer]- All Rights Reserved Reading location - IP/workstation name: [email or web address]
[2019-01-29] MEDS: INSULIN LISPRO 100 UNIT/ML 3 ML VIAL SUBCUT SCH ×2 (16:20→22:16)
[2019-01-29] MEDS ORDERED: AMPICILLIN SODIUM/SULBACTAM NA 3 GM in NORMAL SALINE 100 ML IV SCH (18:00)
[2019-01-29] MEDS: AMPICILLIN SODIUM/SULBACTAM NA 3 GM in NORMAL SALINE 100 ML IV SCH ×2 (18:34→23:00)
[2019-01-29] MEDS: OXYCODONE-ACETAMINOPHEN 5-325 MG TABLET PO PRN (19:17)
[2019-01-29] MEDS: FAMOTIDINE 20 MG TABLET PO SCH (22:29)
[2019-01-29] MEDS: ZOLPIDEM TARTRATE 5 MG TABLET PO SCH (22:30)
[2019-01-29] MEDS: HEPARIN SOD (PORCINE) 5,000 UNIT/ML 1 ML SYRINGE SUBCUT SCH (22:30)
[2019-01-29] MEDS: ACETAMINOPHEN 325 MG TABLET PO PRN (22:30)
[2019-01-30] MEDS: OXYCODONE-ACETAMINOPHEN 5-325 MG TABLET PO PRN ×4 (03:44→21:44)
[2019-01-30] MEDS: HEPARIN SOD (PORCINE) 5,000 UNIT/ML 1 ML SYRINGE SUBCUT SCH ×3 (05:35→21:46)
[2019-01-30] MEDS: AMPICILLIN SODIUM/SULBACTAM NA 3 GM in NORMAL SALINE 100 ML IV SCH ×4 (05:35→23:06)
[2019-01-30 06:55] LABS: ANION GAP 13 (5-19); BLOOD UREA NITROGEN 15 mg/dL (7-20); CALCIUM 8.2 mg/dL (8.4-10.2); CARBON DIOXIDE 22 mmol/L (22-30); CHLORIDE 98 mmol/L (98-107); CHOLESTEROL 154.66 mg/dL (0-200); GLUCOSE 133 mg/dL (75-110); HEMATOCRIT 36.6 % (36.0-47.0); MEAN CORPUSCULAR HEMOGLOBIN 27.9 pg (27.0-33.4); MEAN CORPUSCULAR HGB CONC 32.7 g/dL (32.0-36.0); MEAN CORPUSCULAR VOLUME 85 fl (80-97); PLATELET COUNT 236 10^3/uL (150-450); POTASSIUM 3.6 mmol/L (3.6-5.0); RED BLOOD COUNT 4.29 10^6/uL (3.72-5.28); RED CELL DISTRIBUTION WIDTH 15.2 % (11.5-14.0); SODIUM 133.2 mmol/L (137-145); TRIGLYCERIDES 143 mg/dL (<150); WHITE BLOOD COUNT 20.1 10^3/uL (4.0-10.5)
[2019-01-30 07:06] LABS: DIRECT LDL 72 mg/dL (<100)
[2019-01-30 08:04] LABS: ABSOLUTE LYMPHOCYTES# (MANUAL) 0.6 10^3/uL (0.5-4.7); ABSOLUTE MONOCYTES # (MANUAL) 0.2 10^3/uL (0.1-1.4); BAND NEUTROPHILS % (MANUAL) 4 % (3-5); BASOPHILS % (MANUAL) 0 % (0-2); EOSINOPHILS % (MANUAL) 0 % (0-6); LYMPHOCYTES % (MANUAL) 3 % (13-45); MONOCYTES % (MANUAL) 1 % (3-13); SEGMENTED NEUTROPHILS % (MAN) 92 % (42-78); TOTAL CELLS COUNTED 100
[2019-01-30 08:08] LABS: ANISOCYTOSIS SLIGHT; OVALOCYTES SLIGHT; PLATELET COMMENT ADEQUATE; POIKILOCYTOSIS SLIGHT; TEAR DROP CELLS SLIGHT; TOXIC VACUOLATION PRESENT
[2019-01-30] MEDS: INSULIN LISPRO 100 UNIT/ML 3 ML VIAL SUBCUT SCH ×4 (08:25→22:26)
[2019-01-30] MEDS: FAMOTIDINE 20 MG TABLET PO SCH ×2 (11:10→21:44)
[2019-01-30] MEDS ORDERED: VANCOMYCIN HCL 0 MG in DEXTROSE 5%-WATER 250 ML IV NR (13:15)
--- NOTE | 2019-01-30 13:24 | PDOC PROGRESS REPORT ---
Subjective Progress Note for:: 01/30/19 Subjective:: 38 y.o. F with a H super morbid obesity, diabetes type 2, chronic lower back pain, arthritis, psoriasis, depression. She presented to [facility] with recurrent cellulitis of the left leg. Patient was seen this morning on rounds, she is resting comfortably in bed on room air. She endorses a great deal of pain to the LLE, exacerbated with any type of movement. There is a nonpurulent wound noted to the anterior surface of the left knee. Patient states is a chronic wound. It appears to have multiple areas of dehiscence, but there is no drainage. Cellulitic erythema is present in the extremity distal to the wound. Plan to continue IV antibiotics with ampicillin-sulbactam, will add vancomycin for MRSA coverage. Reason For Visit: CELLULITIS,SEPSIS Physical Exam Vital Signs: Temp Pulse Resp BP Pulse Ox 99.7 F 108 H 20 117/71 96 01/30/19 11:39 01/30/19 11:39 01/30/19 11:39 01/30/19 11:39 01/30/19 11:39 Intake & Output 01/29/19 01/30/19 01/31/19 06:59 06:59 06:59 Intake Total 2930 Balance 2930 Weight 204.5 kg General appearance: PRESENT: obese - Super morbidly obese Eye exam: PRESENT: conjunctiva pink, PERRLA Mouth exam: PRESENT: moist, tongue midline Neck exam: PRESENT: full ROM Respiratory exam: PRESENT: clear to auscultation zahira, symmetrical, unlabored Cardiovascular exam: PRESENT: +S1, +S2 Pulses: PRESENT: normal radial pulses, +1 pedal pulses bilateral Vascular exam: PRESENT: normal capillary refill GI/Abdominal exam: PRESENT: normal bowel sounds - Unable to assess due to body habitus, soft, other - Abdomen is rotund, obese. ABSENT: distended, tenderness Rectal exam: PRESENT: deferred Extremities exam: PRESENT: full ROM - Upper extremities, pedal edema Musculoskeletal exam: PRESENT: ambulatory - Patient reports she can ambulate with a walker at home, full ROM - Upper extremities, tenderness - LLE, below the knee. ABSENT: normal inspection Neurological exam: PRESENT: alert, awake, oriented to person, oriented to place, oriented to time, oriented to situation Psychiatric exam: PRESENT: appropriate affect. ABSENT: unusual affect Skin exam: PRESENT: dry, erythema - LLE, below the knee, intact Results Laboratory Results: 01/30/19 06:22 01/30/19 06:22 01/29/19 01/30/19 01/30/19 16:20 06:22 06:22 WBC 20.1 H RBC 4.29 Hgb 12.0 Hct 36.6 MCV 85 MCH 27.9 MCHC 32.7 RDW 15.2 H Plt Count 236 Seg Neutrophils % Not Reportable Lymphocytes % Not Reportable Monocytes % Not Reportable Eosinophils % Not Reportable Basophils % Not Reportable Absolute Neutrophils Not Reportable Absolute Lymphocytes Not Reportable Absolute Monocytes Not Reportable Absolute Eosinophils Not Reportable Absolute Basophils Not Reportable Sodium 133.2 L Potassium 3.6 Chloride 98 Carbon Dioxide 22 Anion Gap 13 BUN 15 Creatinine 0.99 Est GFR ( Amer) > 60 Est GFR (Non-Af Amer) > 60 Glucose 133 H Lactic Acid 3.1 H Calcium 8.2 L Triglycerides 143 Cholesterol 154.66 LDL Cholesterol Direct 72 VLDL Cholesterol 29.0 HDL Cholesterol 53 Impressions: Venous Doppler Study 01/29/19 13:01 IMPRESSION: Examination is significantly limited by large body habitus and soft tissue edema. The mid to distal portions of the femoral vein and the calf veins are inadequately visualized. Within this limitation, no evidence of deep venous thrombosis in the left lower extremity. Status: Imported from PACS Assessment and Plan - Diagnosis (1) Sepsis Qualifiers: Sepsis type: sepsis due to unspecified organism Qualified Code(s): A41.9 - Sepsis, unspecified organism Is this a current diagnosis for this admission?: Yes Plan: Improving Secondary to cellulitis stemming from open wound to the left knee, chronic lymphedema and venous stasis Patient currently with low-grade fever (T99.7), leukocytosis (WBC 20), initial lactate elevated to 3.1, tachycardia (HR 108) Empirically treated with vancomycin and cefepime in ED Currently treated with IV Unasyn, will add IV vancomycin for MRSA coverage Check lactate level in AM (2) Chronic acquired lymphedema Is this a current diagnosis for this admission?: Yes Plan: Follow-up with her primary physician. (3) Left leg cellulitis Is this a current diagnosis for this admission?: Yes Plan: Plan as above (4) Type 2 diabetes mellitus Is this a current diagnosis for this admission?: Yes Plan: Hgb A1c 6.0% Continue home dose Metformin Accuchecks ACHS Humalog SSI (5) Morbid obesity Is this a current diagnosis for this admission?: Yes Plan: Management with dietary control (6) UTI (urinary tract infection) Qualifiers: Urinary tract infection type: site unspecified Hematuria presence: without hematuria Qualified Code(s): N39.0 - Urinary tract infection, site not spe cified Is this a current diagnosis for this admission?: Yes Plan: Patient does not complain of urinary symptoms Initial UA positive for nitrites but negative for leukoesterase and WBCs only 5 Urine culture currently pending - Time Time Spent with patient: 15-24 minutes Medications reviewed and adjusted accordingly: Yes Anticipated discharge: Home Within: Other - once cellulitis improves - Inpatient Certification Based on my medical assessment, after consideration of the patient's comorbidities, presenting symptoms, or acuity I expect that the services needed warrant INPATIENT care.: Yes I certify that my determination is in accordance with my understanding of Medicare's requirements for reasonable and necessary INPATIENT services [42 CFR 412.3e].: Yes Medical Necessity: Need for IV Antibiotics, Risk of Complication if Not Cared For in Hospital
[2019-01-30] MEDS: MESALAMINE 400 MG CAPSULE.DR PO SCH ×2 (15:32→17:13)
[2019-01-30] MEDS: VANCOMYCIN HCL 2,000 MG in DEXTROSE 5%-WATER 500 ML IV SCH (19:31)
[2019-01-30] MEDS: ZOLPIDEM TARTRATE 5 MG TABLET PO SCH (21:44)
[2019-01-30] MEDS: ATORVASTATIN CALCIUM 40 MG TABLET PO SCH (21:44)
[2019-01-31] MEDS: HEPARIN SOD (PORCINE) 5,000 UNIT/ML 1 ML SYRINGE SUBCUT SCH ×3 (05:53→21:23)
[2019-01-31] MEDS: AMPICILLIN SODIUM/SULBACTAM NA 3 GM in NORMAL SALINE 100 ML IV SCH ×3 (05:53→17:22)
[2019-01-31 06:38] LABS: ABSOLUTE EOSINOPHILS # (AUTO) 0.2 10^3/uL (0.0-0.6); ABSOLUTE LYMPHOCYTES (AUTO) 0.6 10^3/uL (0.5-4.7); ABSOLUTE MONOCYTES (AUTO) 0.5 10^3/uL (0.1-1.4); BASOPHILS % (AUTO) 0.3 % (0-2); EOSINOPHILS % (AUTO) 1.8 % (0-6); HEMATOCRIT 35.2 % (36.0-47.0); HEMOGLOBIN 11.8 g/dL (12.0-15.5); LYMPHOCYTES % (AUTO) 6.1 % (13-45); MEAN CORPUSCULAR HEMOGLOBIN 28.5 pg (27.0-33.4); MEAN CORPUSCULAR HGB CONC 33.4 g/dL (32.0-36.0); MEAN CORPUSCULAR VOLUME 85 fl (80-97); MONOCYTES % (AUTO) 4.7 % (3-13); PLATELET COUNT 188 10^3/uL (150-450); RED BLOOD COUNT 4.13 10^6/uL (3.72-5.28); RED CELL DISTRIBUTION WIDTH 14.6 % (11.5-14.0); SEGMENTED NEUTROPHILS % (AUTO) 87.1 % (42-78); TOTAL CELLS COUNTED % (AUTO) 100 %; WHITE BLOOD COUNT 10.3 10^3/uL (4.0-10.5)
[2019-01-31 06:56] LABS: ALANINE AMINOTRANSFERASE 22 U/L (9-52); ALBUMIN 3.3 g/dL (3.5-5.0); ALKALINE PHOSPHATASE 88 U/L (38-126); ANION GAP 12 (5-19); ASPARTATE AMINO TRANSFERASE 24 U/L (14-36); BILIRUBIN,DIRECT 0.5 mg/dL (0.0-0.4); BILIRUBIN,TOTAL 0.5 mg/dL (0.2-1.3); BLOOD UREA NITROGEN 11 mg/dL (7-20); CALCIUM 8.6 mg/dL (8.4-10.2); CARBON DIOXIDE 25 mmol/L (22-30); CHLORIDE 98 mmol/L (98-107); GLUCOSE 113 mg/dL (75-110); PHOSPHORUS 3.8 mg/dL (2.5-4.5); POTASSIUM 3.7 mmol/L (3.6-5.0); SODIUM 135.2 mmol/L (137-145); TOTAL PROTEIN 6.6 g/dL (6.3-8.2)
[2019-01-31] MEDS: OXYCODONE-ACETAMINOPHEN 5-325 MG TABLET PO PRN ×3 (07:51→17:22)
[2019-01-31] MEDS: PANTOPRAZOLE SODIUM 20 MG TABLET.DR PO SCH (07:52)
[2019-01-31] MEDS: VANCOMYCIN HCL 2,000 MG in DEXTROSE 5%-WATER 500 ML IV SCH ×2 (10:41→20:20)
[2019-01-31] MEDS: FAMOTIDINE 20 MG TABLET PO SCH ×2 (10:42→21:14)
[2019-01-31] MEDS: MESALAMINE 400 MG CAPSULE.DR PO SCH ×3 (10:42→17:22)
[2019-01-31] MEDS: BENZOCAINE/MENTHOL SORE THROAT LOZENGE BUCCAL PRN ×2 (11:42→21:20)
[2019-01-31] MEDS: INSULIN LISPRO 100 UNIT/ML 3 ML VIAL SUBCUT SCH ×4 (12:47→23:04)
--- NOTE | 2019-01-31 15:55 | PDOC PROGRESS REPORT ---
Subjective Progress Note for:: 01/31/19 Subjective:: 38 y.o. F with a PMH super morbid obesity, diabetes type 2, chronic lower back pain, arthritis, psoriasis, depression. She presented to [facility] with recurrent cellulitis of the left leg. Patient was seen this morning on rounds, she is resting in the bedside recliner. She states that her LLE pain has improved today, but it remains present and exacerbated with any type of movement. The wound noted to the anterior surface of the left knee is draining serous fluid, will plan to culture. It is likely fluid that is 3rd spacing but given the amount of surrounding this, will plan for wound culture. Cellulitic erythema is present in the extremity distal to the wound. Plan to continue IV antibiotics with ampicillin-sulbactam and vancomycin Reason For Visit: CELLULITIS,SEPSIS Physical Exam Vital Signs: Temp Pulse Resp BP Pulse Ox 98.2 F 91 18 107/63 95 01/31/19 11:17 01/31/19 11:17 01/31/19 11:17 01/31/19 11:17 01/31/19 11:17 Intake & Output 01/30/19 01/31/19 02/01/19 06:59 06:59 06:59 Intake Total 2930 1800 Balance 2930 1800 Weight 204.5 kg 207.3 kg General appearance: PRESENT: no acute distress, morbidly obese Head exam: PRESENT: atraumatic, normocephalic Eye exam: PRESENT: conjunctiva pink, EOMI, PERRLA. ABSENT: scleral icterus Ear exam: PRESENT: normal external ear exam Mouth exam: PRESENT: moist, tongue midline Neck exam: PRESENT: full ROM. ABSENT: carotid bruit, JVD, lymphadenopathy, thyromegaly Respiratory exam: PRESENT: clear to auscultation zahira, decreased breath sounds - bilateral lower lobes, likely due to habitus, symmetrical, unlabored. ABSENT: rales, rhonchi, wheezes Cardiovascular exam: PRESENT: RRR. ABSENT: diastolic murmur, rubs, systolic murmur Pulses: PRESENT: normal radial pulses, +1 pedal pulses bilateral Vascular exam: PRESENT: normal capillary refill GI/Abdominal exam: PRESENT: normal bowel sounds, soft. ABSENT: distended, guarding, mass, organolmegaly, rebound, tenderness Rectal exam: PRESENT: deferred Extremities exam: PRESENT: full ROM, joint swelling, pedal edema, +2 edema. ABSENT: calf tenderness, clubbing Musculoskeletal exam: PRESENT: ambulatory. ABSENT: full ROM - PARTIAL ROM TO LLE DUE TO PAIN Neurological exam: PRESENT: alert, awake, oriented to person, oriented to place, oriented to time, oriented to situation Psychiatric exam: PRESENT: appropriate affect, normal mood Skin exam: PRESENT: erythema, intact, warm. ABSENT: cyanosis, rash Results Laboratory Results: 01/31/19 06:00 01/31/19 06:00 01/31/19 01/31/19 06:00 06:00 WBC 10.3 RBC 4.13 Hgb 11.8 L Hct 35.2 L MCV 85 MCH 28.5 MCHC 33.4 RDW 14.6 H Plt Count 188 Seg Neutrophils % 87.1 H Lymphocytes % 6.1 L Monocytes % 4.7 Eosinophils % 1.8 Basophils % 0.3 Absolute Neutrophils 9.0 H Absolute Lymphocytes 0.6 Absolute Monocytes 0.5 Absolute Eosinophils 0.2 Absolute Basophils 0.0 Sodium 135.2 L Potassium 3.7 Chloride 98 Carbon Dioxide 25 Anion Gap 12 BUN 11 Creatinine 0.79 Est GFR ( Amer) > 60 Est GFR (Non-Af Amer) > 60 Glucose 113 H Calcium 8.6 Phosphorus 3.8 Magnesium 2.0 Total Bilirubin 0.5 AST 24 ALT 22 Alkaline Phosphatase 88 Total Protein 6.6 Albumin 3.3 L 01/29/19 11:27 Clean Catch Midstream Urine Culture - Final Escherichia Coli Impressions: Venous Doppler Study 01/29/19 13:01 IMPRESSION: Examination is significantly limited by large body habitus and soft tissue edema. The mid to distal portions of the femoral vein and the calf veins are inadequately visualized. Within this limitation, no evidence of deep venous thrombosis in the left lower extremity. Status: Imported from PACS Assessment and Plan - Diagnosis (1) Sepsis Qualifiers: Sepsis type: sepsis due to unspecified organism Qualified Code(s): A41.9 - Sepsis, unspecified organism Is this a current diagnosis for this admission?: Yes Plan: Improving Secondary to cellulitis stemming from open wound to the left knee, chronic lymphedema and venous stasis Fever and leukocytosis resolved. Empirically treated with vancomycin and cefepime in ED Currently treated with IV Unasyn and vancomycin (2) Chronic acquired lymphedema Is this a current diagnosis for this admission?: Yes Plan: Follow-up with her primary physician. (3) Left leg cellulitis Is this a current diagnosis for this admission?: Yes Plan: Plan as above (4) Type 2 diabetes mellitus Is this a current diagnosis for this admission?: Yes Plan: Hgb A1c 6.0% Continue home dose Metformin Accuchecks ACHS Humalog SSI (5) Morbid obesity Is this a current diagnosis for this admission?: Yes Plan: Management with dietary control (6) UTI (urinary tract infection) Qualifiers: Urinary tract infection type: site unspecified Hematuria presence: without hematuria Qualified Code(s): N39.0 - Urinary tract infection, site not specified Is this a current diagnosis for this admission?: Yes Plan: Patient does not complain of urinary symptoms Initial UA positive for nitrites but negative for leuk esterase and WBCs only 5 Urine culture positive for pansensitive E. coli Given the patient's habitus, it would be very easy for her urine to be contaminated with perineal e. coli/fecal particles No plan for antibiotics at this time - Time Time Spent with patient: 15-24 minutes Medications reviewed and adjusted accordingly: Yes Anticipated discharge: Home Within: Other - when medically stable - Inpatient Certification Based on my medical assessment, after consideration of the patient's comorbidities, presenting symptoms, or acuity I expect that the services needed warrant INPATIENT care.: Yes I certify that my determination is in accordance with my understanding of Medicare's requirements for reasonable and necessary INPATIENT services [42 CFR 412.3e].: Yes Medical Necessity: Need for IV Antibiotics
[2019-01-31] MEDS: GABAPENTIN 400 MG CAPSULE PO SCH (21:14)
[2019-01-31] MEDS: ATORVASTATIN CALCIUM 40 MG TABLET PO SCH (21:14)
[2019-01-31] MEDS: ZOLPIDEM TARTRATE 5 MG TABLET PO SCH (21:20)
[2019-02-01] MEDS ORDERED: ENOXAPARIN SODIUM INJ 150 MG/1 ML DISP.SYRIN SUBCUT ONE (00:30)
[2019-02-01] MEDS ORDERED: ENOXAPARIN SODIUM INJ 120 MG/0.8 ML DISP.SYRIN SUBCUT ONE (00:45)
[2019-02-01] MEDS: OXYCODONE-ACETAMINOPHEN 5-325 MG TABLET PO PRN ×4 (00:53→23:57)
[2019-02-01] MEDS: AMPICILLIN SODIUM/SULBACTAM NA 3 GM in NORMAL SALINE 100 ML IV SCH ×4 (00:54→18:16)
[2019-02-01] MEDS: GABAPENTIN 400 MG CAPSULE PO SCH ×3 (05:01→21:38)
[2019-02-01 06:31] LABS: ABSOLUTE EOSINOPHILS # (AUTO) 0.2 10^3/uL (0.0-0.6); ABSOLUTE LYMPHOCYTES (AUTO) 1.3 10^3/uL (0.5-4.7); ABSOLUTE MONOCYTES (AUTO) 1.3 10^3/uL (0.1-1.4); ABSOLUTE NEUT (AUTO) 10.3 10^3/uL (1.7-8.2); BASOPHILS % (AUTO) 0.3 % (0-2); EOSINOPHILS % (AUTO) 1.8 % (0-6); HEMATOCRIT 33.8 % (36.0-47.0); HEMOGLOBIN 11.3 g/dL (12.0-15.5); LYMPHOCYTES % (AUTO) 9.8 % (13-45); MEAN CORPUSCULAR HEMOGLOBIN 28.3 pg (27.0-33.4); MEAN CORPUSCULAR HGB CONC 33.5 g/dL (32.0-36.0); MEAN CORPUSCULAR VOLUME 84 fl (80-97); MONOCYTES % (AUTO) 9.8 % (3-13); PLATELET COUNT 239 10^3/uL (150-450); RED BLOOD COUNT 4.01 10^6/uL (3.72-5.28); RED CELL DISTRIBUTION WIDTH 15.2 % (11.5-14.0); SEGMENTED NEUTROPHILS % (AUTO) 78.3 % (42-78); TOTAL CELLS COUNTED % (AUTO) 100 %; WHITE BLOOD COUNT 13.1 10^3/uL (4.0-10.5)
[2019-02-01] MEDS: VANCOMYCIN HCL 2,000 MG in DEXTROSE 5%-WATER 500 ML IV SCH ×2 (07:22→21:35)
[2019-02-01] MEDS: PANTOPRAZOLE SODIUM 20 MG TABLET.DR PO SCH (08:13)
[2019-02-01] MEDS: ACETAMINOPHEN 325 MG TABLET PO PRN ×2 (08:17→21:38)
[2019-02-01] MEDS: INSULIN LISPRO 100 UNIT/ML 3 ML VIAL SUBCUT SCH ×3 (08:20→17:16)
[2019-02-01] MEDS ORDERED: FUROSEMIDE INJ/PF 20 MG/2 ML SDV IV ONE (10:26)
[2019-02-01] MEDS ORDERED: TRAMADOL HCL 50 MG TABLET PO PRN (10:27)
[2019-02-01] MEDS: ONDANSETRON HCL INJ/PF 4 MG/2 ML SDV IV PRN (10:34)
[2019-02-01] MEDS: FAMOTIDINE 20 MG TABLET PO SCH ×2 (10:52→21:38)
[2019-02-01] MEDS: MESALAMINE 400 MG CAPSULE.DR PO SCH ×3 (10:53→18:20)
[2019-02-01] MEDS: IBUPROFEN 800 MG TABLET PO PRN ×2 (10:53→18:20)
--- NOTE | 2019-02-01 16:34 | PDOC PROGRESS REPORT ---
Subjective Progress Note for:: 02/01/19 Subjective:: 38 y.o. F with a H super morbid obesity, diabetes type 2, chronic lower back pain, arthritis, psoriasis, depression. She presented to [facility] with recurrent cellulitis of the left leg. Patient was seen this morning on rounds, she is resting in the bedside recliner. She states that her LLE pain is worse today. Erythema and edema seems worse today, LE pain is exacerbated with any type of movement. Patient states the pain is worse on the back of her leg and the region is very tender to palpation. Venous doppler done 48hrs ago is negative for DVT. Informed the patient that she needs to keep her extremity elevated. Will change pain regimen. Administer one time dose of Lasix in hopes of mobilizing some of the lower extremity edema. Plan to continue IV antibiotics with ampicillin-sulbactam and vancomycin Reason For Visit: CELLULITIS,SEPSIS Physical Exam Vital Signs: Temp Pulse Resp BP Pulse Ox 97.7 F 89 17 111/76 96 02/01/19 12:59 02/01/19 12:59 02/01/19 12:59 02/01/19 12:59 02/01/19 12:59 Intake & Output 01/31/19 02/01/19 02/02/19 06:59 06:59 06:59 Intake Total 1900 1600 700 Balance 1900 1600 700 Weight 207.3 kg 207.3 kg 207.3 kg General appearance: PRESENT: no acute distress, morbidly obese - super morbid obesity - bmi > 80 Head exam: PRESENT: atraumatic, normocephalic Eye exam: PRESENT: conjunctiva pink, EOMI, PERRLA. ABSENT: scleral icterus Ear exam: PRESENT: normal external ear exam Mouth exam: PRESENT: moist, tongue midline Neck exam: PRESENT: full ROM. ABSENT: carotid bruit, JVD, lymphadenopathy, thyromegaly Respiratory exam: PRESENT: clear to auscultation zahira, decreased breath sounds - b/l lower lobes - likely due to body habitus, symmetrical, unlabored. ABSENT: rales, rhonchi, wheezes Cardiovascular exam: PRESENT: RRR. ABSENT: diastolic murmur, rubs, systolic murmur Pulses: PRESENT: normal radial pulses, +1 pedal pulses bilateral - difficultto palpate due to body habitus Vascular exam: PRESENT: normal capillary refill GI/Abdominal exam: PRESENT: normal bowel sounds, soft, other - ROTUND. OBESE. ABSENT: distended, guarding, mass, organolmegaly, rebound, tenderness Rectal exam: PRESENT: deferred Extremities exam: ABSENT: calf tenderness, clubbing, full ROM - PARTIAL ROM OF LLE DUE TO PAIN, pedal edema Musculoskeletal exam: PRESENT: ambulatory. ABSENT: full ROM, normal inspection Neurological exam: PRESENT: alert, awake, oriented to person, oriented to place, oriented to time, oriented to situation Psychiatric exam: PRESENT: appropriate affect, normal mood Skin exam: PRESENT: dry, intact, warm. ABSENT: cyanosis, rash Results Laboratory Results: 02/01/19 06:13 01/31/19 06:00 02/01/19 06:13 WBC 13.1 H RBC 4.01 Hgb 11.3 L Hct 33.8 L MCV 84 MCH 28.3 MCHC 33.5 RDW 15.2 H Plt Count 239 Seg Neutrophils % 78.3 H Lymphocytes % 9.8 L Monocytes % 9.8 Eosinophils % 1.8 Basophils % 0.3 Absolute Neutrophils 10.3 H Absolute Lymphocytes 1.3 Absolute Monocytes 1.3 Absolute Eosinophils 0.2 Absolute Basophils 0.0 Impressions: Venous Doppler Study 01/29/19 13:01 IMPRESSION: Examination is significantly limited by large body habitus and soft tissue edema. The mid to distal portions of the femoral vein and the calf veins are inadequately visualized. Within this limitation, no evidence of deep venous thrombosis in the left lower extremity. Status: Imported from PACS Assessment and Plan - Diagnosis (1) Sepsis Qualifiers: Sepsis type: sepsis due to unspecified organism Qualified Code(s): A41.9 - Sepsis, unspecified organism Is this a current diagnosis for this admission?: Yes Plan: Improving Secondary to cellulitis stemming from open wound to the left knee, chronic lymphedema and venous stasis Fever and leukocytosis resolved. Empirically treated with vancomycin and cefepime in ED Currently treated with IV Unasyn and vancomycin (2) Chronic acquired lymphedema Is this a current diagnosis for this admission?: Yes Plan: Worsening edema today Patient complains of "feeling like my leg will burst open" Plan for lasix today Follow-up with her primary physician. (3) Left leg cellulitis Is this a current diagnosis for this admission?: Yes Plan: PRN Tylenol, Tramadol and ibuprofen for pain Remaining plan as above (4) Type 2 diabetes mellitus Is this a current diagnosis for this admission?: Yes Plan: Hgb A1c 6.0% Hold home dose Metformin Zeenat Peter SSI Patient states she is not diabetic, she is on metformin "as a preventative measure" (5) Morbid obesity Is this a current diagnosis for this admission?: Yes Plan: Management with dietary control (6) UTI (urinary tract infection) Qualifiers: Urinary tract infection type: site unspecified Hematuria presence: without hematuria Qualified Code(s): N39.0 - Urinary tract infection, site not specified Is this a current diagnosis for this admission?: Yes Plan: Patient does not complain of urinary symptoms Initial UA positive for nitrites but negative for leuk esterase and WBCs only 5 Urine culture positive for pansensitive E. coli Given the patient's habitus, it would be very easy for her urine to be contaminated with perineum e. coli/fecal particles No plan for antibiotics at this time - Time Time Spent with patient: 15-24 minutes Medications reviewed and adjusted accordingly: Yes Anticipated discharge: Home Within: Other - when medically stable - Inpatient Certification Based on my medical assessment, after consideration of the patient's comor bidities, presenting symptoms, or acuity I expect that the services needed warrant INPATIENT care.: Yes I certify that my determination is in accordance with my understanding of Medicare's requirements for reasonable and necessary INPATIENT services [42 CFR 412.3e].: Yes Medical Necessity: Need for IV Antibiotics, Risk of Complication if Not Cared For in Hospital
[2019-02-01 20:22] LABS: VANCOMYCIN,TROUGH 14.5 ug/mL (5.0-20.0)
[2019-02-01] MEDS: ATORVASTATIN CALCIUM 40 MG TABLET PO SCH (21:37)
[2019-02-01] MEDS: ZOLPIDEM TARTRATE 5 MG TABLET PO SCH (21:37)
[2019-02-02] MEDS: AMPICILLIN SODIUM/SULBACTAM NA 3 GM in NORMAL SALINE 100 ML IV SCH ×4 (00:34→21:02)
[2019-02-02] MEDS: IBUPROFEN 800 MG TABLET PO PRN ×4 (00:34→21:06)
[2019-02-02] MEDS: GABAPENTIN 400 MG CAPSULE PO SCH ×2 (06:05→13:12)
[2019-02-02] MEDS: PANTOPRAZOLE SODIUM 20 MG TABLET.DR PO SCH (07:53)
[2019-02-02] MEDS: OXYCODONE-ACETAMINOPHEN 5-325 MG TABLET PO PRN ×4 (08:06→22:15)
[2019-02-02] MEDS: FAMOTIDINE 20 MG TABLET PO SCH ×2 (09:00→21:03)
[2019-02-02] MEDS: MESALAMINE 400 MG CAPSULE.DR PO SCH ×3 (09:00→17:00)
[2019-02-02] MEDS: VANCOMYCIN HCL 2,000 MG in DEXTROSE 5%-WATER 500 ML IV SCH ×2 (09:04→21:01)
[2019-02-02] MEDS: ENOXAPARIN SODIUM INJ 30 MG/0.3 ML DISP.SYRIN SUBCUT SCH ×2 (09:25→21:03)
[2019-02-02 09:48] LABS: HEMATOCRIT 33.8 % (36.0-47.0); MEAN CORPUSCULAR HGB CONC 32.6 g/dL (32.0-36.0); MEAN CORPUSCULAR VOLUME 86 fl (80-97); PLATELET COUNT 261 10^3/uL (150-450); RED BLOOD COUNT 3.94 10^6/uL (3.72-5.28); RED CELL DISTRIBUTION WIDTH 15.2 % (11.5-14.0); WHITE BLOOD COUNT 14.1 10^3/uL (4.0-10.5)
[2019-02-02 10:07] LABS: ALANINE AMINOTRANSFERASE 20 U/L (9-52); ALBUMIN 3.2 g/dL (3.5-5.0); ALKALINE PHOSPHATASE 95 U/L (38-126); ANION GAP 12 (5-19); ASPARTATE AMINO TRANSFERASE 15 U/L (14-36); BILIRUBIN,DIRECT 0.3 mg/dL (0.0-0.4); BILIRUBIN,TOTAL 0.4 mg/dL (0.2-1.3); BLOOD UREA NITROGEN 5 mg/dL (7-20); CALCIUM 8.6 mg/dL (8.4-10.2); CARBON DIOXIDE 28 mmol/L (22-30); CHLORIDE 97 mmol/L (98-107); GLUCOSE 146 mg/dL (75-110); PHOSPHORUS 4.4 mg/dL (2.5-4.5); POTASSIUM 3.5 mmol/L (3.6-5.0); SODIUM 136.5 mmol/L (137-145); TOTAL PROTEIN 5.7 g/dL (6.3-8.2)
[2019-02-02] MEDS ORDERED: FUROSEMIDE INJ/PF 40 MG/4 ML SDV IV ONE (10:22)
[2019-02-02 10:29] LABS: APPEARANCE,URINE SLIGHTLY-CLOUDY; BILIRUBIN,URINE NEGATIVE (NEGATIVE); COLOR,URINE YELLOW; GLUCOSE, URINE NEGATIVE (NEGATIVE); KETONES,URINE NEGATIVE (NEGATIVE); LEUKOCYTE ESTERASE,URINE TRACE (NEGATIVE); NITRITE,URINE NEGATIVE (NEGATIVE); PROTEIN,URINE 30 mg/dL (NEGATIVE); URINE SPECIFIC GRAVITY 1.014; UROBILINOGEN,URINE NEGATIVE mg/dL (<2.0)
--- NOTE | 2019-02-02 10:57 | RADIOLOGY REPORT (SQ) ---
EXAM DESCRIPTION: CHEST SINGLE VIEW COMPLETED DATE/TIME: 02/02/2019 10:49 am REASON FOR STUDY: shortness of breath COMPARISON: CT chest dated 02/17/2017 NUMBER OF VIEWS: One view. TECHNIQUE: Single frontal radiographic view of the chest acquired. LIMITATIONS: None. FINDINGS: LUNGS AND PLEURA: No opacities, masses or pneumothorax. No pleural effusion. There is a p rominent right pericardial fat pad. MEDIASTINUM AND HILAR STRUCTURES: No masses. Contour normal. HEART AND VASCULAR STRUCTURES: Heart normal in size. Normal vasculature. BONES: No acute findings. HARDWARE: None in the chest. OTHER: No other significant finding. IMPRESSION: NO SIGNIFICANT RADIOGRAPHIC FINDING IN THE CHEST. TECHNICAL DOCUMENTATION: JOB ID: [id number] [employer]- All Rights Reserved Reading location - IP/workstation name: [email or web address]
[2019-02-02] MEDS: DULOXETINE HCL 30 MG CAPSULE.DR PO SCH (11:39)
[2019-02-02] MEDS: NORTRIPTYLINE HCL 25 MG CAPSULE PO SCH ×2 (14:59→21:03)
[2019-02-02] MEDS: ALBUTEROL SULFATE HFA (90 MCG/PUFF) 200 PUFF/8.5 GM MDI IH PRN (15:00)
--- NOTE | 2019-02-02 15:24 | RADIOLOGY REPORT (SQ) ---
EXAM DESCRIPTION: PICC INSERTION; FLUORO/CV PLACEMENT; U/S GUIDE FOR VASCULAR ACCESS COMPLETED DATE/TIME: 02/02/2019 2:40 pm; 02/02/2019 2:52 pm REASON FOR STUDY: iv access; NEED IV ACCESS; PICC LINE FOR IV ACCESS COMPARISON: None. FLUOROSCOPY TIME: 0.7 minutes 3 images saved to PACS. TECHNIQUE: Fluoroscopic and ultrasound guided PICC placement. LIMITATIONS: None. PROCEDURE: After written consent and assessment were obtained, the patient was brought into the fluo roscopy room and placed supine on the table. Ultrasound evaluation of potential access sites were per formed. After successfully identifying a patent right basilic vein, the right arm was prepped and alex ped in a sterile fashion along with the ultrasound probe. The entry site was anesthetized with 1% lid ocaine. A 21 gauge 7 cm needle was advanced through the skin and into the basilic vein under live ult rasound guidance. An ultrasound image was saved to PACS confirming access site. A .018 guide wire w as then inserted through the needle and into the venous system. The needle was then removed and an 11 blade scalpel was used to make a 1cm skin incision. A 5 fr peel-away sheath was advanced over the w radha and into the venous system. A measurement was then made using the existing wire and live fluorosc opic guidance. The wire was then removed and trimmed. The PICC was advanced through the peel-away she ath and into the venous system. The peel-away sheath was removed and the catheter was adhered to the patients arm with a stat lock. The catheter was then aspirated and flushed and a sterile bandage was placed over the access site. A fluoroscopic spot image was saved to PACS confirming the catheter tip within the superior vena cava. IMPRESSION: SUCCESSFUL PLACEMENT OF A 5 FR DUAL LUMEN 43 CM PICC IN THE RIGHT BASILIC VEIN. COMMENT: Patient medication list reviewed: Yes- Quality ID# [id number]:Eligible professional attests to doc umenting in the medical record they obtained, updated, or reviewed the patient's current medications. . Quality ID 145: Final reports for procedures using fluoroscopy that document radiation exposure jaspreet aman, or exposure time and number of fluorographic images (if radiation exposure indices are not avail able) Quality ID #76: The patient was prepped and draped using maximum sterile barrier technique including cap, mask, sterile gown, sterile gloves, a large sterile sheet, hand hygiene, and 2% Chlorhexidine fo r cutaneous antisepsis. When ultrasound is used, sterile ultrasound techniques are followed requiring sterile gel and sterile probes. TECHNICAL DOCUMENTATION: JOB ID: [id number] [employer]- All Rights Reserved rev-01/06 Reading location - IP/workstation name: [email or web address]
[2019-02-02] MEDS ORDERED: POTASSIUM CHLORIDE 10 MEQ CAPSULE.ER PO ONE (16:30)
[2019-02-02] MEDS: GABAPENTIN 300 MG CAPSULE PO SCH (21:02)
[2019-02-02] MEDS: ATORVASTATIN CALCIUM 40 MG TABLET PO SCH (21:02)
[2019-02-02] MEDS: NORMAL SALINE 10 ML SDV (SCHEDULED) IV SCH (21:02)
[2019-02-02] MEDS: TOPIRAMATE 25 MG TABLET PO SCH (21:03)
[2019-02-02] MEDS ORDERED: GABAPENTIN 400 MG CAPSULE PO SCH (22:00)
--- NOTE | 2019-02-02 22:43 | PDOC PROGRESS REPORT ---
Subjective Progress Note for:: 02/02/19 Subjective:: 38 y.o. F with a H super morbid obesity, diabetes type 2, chronic lower back pain, arthritis, psoriasis, depression. She presented to [facility] with recurrent cellulitis of the left leg. Patient was seen this morning on rounds, she is resting in the bed with her LLE elevated. She states that her LLE pain has not improved or worsened today. Erythema and edema seems mildly improved today. The patient is very tearful today, she has not received her cymbalta in days and reports anxiety about missing her son's preschool graduation yesterday. The patient states she gets short of breath with minimal exertion. Lung sounds are coarse upon auscultation. Will obtain CXR to evaluate for any cardiopulmonary pathology. Plan to continue IV antibiotics with ampicillin-sulbactam and vancomycin. Will administer another dose of lasix today for persistent edema. Reason For Visit: CELLULITIS,SEPSIS Physical Exam Vital Signs: Temp Pulse Resp BP Pulse Ox 98.0 F 88 22 H 129/71 H 100 02/02/19 20:00 02/02/19 20:00 02/02/19 20:00 02/02/19 20:00 02/02/19 20:00 Intake & Output 02/01/19 02/02/19 02/03/19 06:59 06:59 06:59 Intake Total 1600 1400 700 Balance 1600 1400 700 Weight 207.3 kg 210 kg General appearance: PRESENT: no acute distress, morbidly obese - super morbid obesity Head exam: PRESENT: atraumatic, normocephalic Eye exam: PRESENT: conjunctiva pink, EOMI, PERRLA. ABSENT: scleral icterus Ear exam: PRESENT: normal external ear exam Mouth exam: PRESENT: moist, tongue midline Neck exam: ABSENT: carotid bruit, JVD, lymphadenopathy, thyromegaly Respiratory exam: PRESENT: clear to auscultation zahira, symmetrical, unlabored, other - coarse lung sounds. ABSENT: rales, rhonchi, wheezes Cardiovascular exam: PRESENT: RRR. ABSENT: diastolic murmur, rubs, systolic murmur Pulses: PRESENT: normal radial pulses, normal dorsalis pedis pul Vascular exam: PRESENT: normal capillary refill GI/Abdominal exam: PRESENT: soft. ABSENT: distended, guarding, mass, o rganolmegaly, rebound, tenderness Rectal exam: PRESENT: deferred Extremities exam: PRESENT: full ROM - limited ROM to the LLE due to pain. ABSENT: calf tenderness, clubbing, pedal edema Musculoskeletal exam: PRESENT: ambulatory, full ROM - limited ROM to the LLE due to pain Neurological exam: PRESENT: alert, awake, oriented to person, oriented to place, oriented to time, oriented to situation Psychiatric exam: PRESENT: appropriate affect, normal mood Skin exam: PRESENT: dry, intact, warm. ABSENT: cyanosis, rash Results Laboratory Results: 02/02/19 09:30 02/02/19 09:20 02/02/19 02/02/19 02/02/19 09:20 09:30 09:39 WBC 14.1 H RBC 3.94 Hgb 11.0 L Hct 33.8 L MCV 86 MCH 28.0 MCHC 32.6 RDW 15.2 H Plt Count 261 Sodium 136.5 L Potassium 3.5 L Chloride 97 L Carbon Dioxide 28 Anion Gap 12 BUN 5 L Creatinine 0.72 Est GFR ( Amer) > 60 Est GFR (Non-Af Amer) > 60 Glucose 146 H Calcium 8.6 Phosphorus 4.4 Magnesium 2.0 Total Bilirubin 0.4 AST 15 ALT 20 Alkaline Phosphatase 95 Total Protein 5.7 L Albumin 3.2 L Urine Color YELLOW Urine Appearance SLIGHTLY-CLOUDY Urine pH 6.0 Ur Specific [place] 1.014 Urine Protein 30 H Urine Glucose (UA) NEGATIVE Urine Ketones NEGATIVE Urine Blood LARGE H Urine Nitrite NEGATIVE Ur Leukocyte Esterase TRACE H Urine WBC (Auto) 65 Urine RBC (Auto) >182 Impressions: Venous Doppler Study 01/29/19 13:01 IMPRESSION: Examination is significantly limited by large body habitus and soft tissue edema. The mid to distal portions of the femoral vein and the calf veins are inadequately visualized. Within this limitation, no evidence of deep venous thrombosis in the left lower extremity. Guidance Fluoroscopy 02/02/19 00:00 IMPRESSION: SUCCESSFUL PLACEMENT OF A 5 FR DUAL LUMEN 43 CM PICC IN THE RIGHT BASILIC VEIN. Interventional Vascular Procedure 02/02/19 00:00 IMPRESSION: SUCCESSFUL PLACEMENT OF A 5 FR DUAL LUMEN 43 CM PICC IN THE RIGHT BASILIC VEIN. Chest X-Ray 02/02/19 10:25 IMPRESSION: NO SIGNIFICANT RADIOGRAPHIC FINDING IN THE CHEST. PICC Line Insertion 02/02/19 13:50 IMPRESSION: SUCCESSFUL PLACEMENT OF A 5 FR DUAL LUMEN 43 CM PICC IN THE RIGHT BASILIC VEIN. Status: Imported from PACS Assessment and Plan - Diagnosis (1) Sepsis Qualifiers: Sepsis type: sepsis due to unspecified organism Qualified Code(s): A41.9 - Sepsis, unspecified organism Is this a current diagnosis for this admission?: Yes Plan: Improving Secondary to cellulitis stemming from open wound to the left knee, chronic lymphedema and venous stasis Afebrile, leukocytosis worsening 13-->14 Empirically treated with vancomycin and cefepime in ED Was being treated with IV Unasyn and vancomycin, will switch Unasyn to Cefazolin per IDSA recommendations (2) Chronic acquired lymphedema Is this a current diagnosis for this admission?: Yes Plan: Worsening edema today Patient complains of "feeling like my leg will burst open" Plan for lasix today Follow-up with her primary physician. (3) Left leg cellulitis Is this a current diagnosis for this admission?: Yes Plan: PRN Tylenol, Tramadol and ibuprofen for pain Remaining plan as above (4) Type 2 diabetes mellitus Is this a current diagnosis for this admission?: No Plan: Hgb A1c 6.0% Hold home dose Metformin Accuchecks have been normal x 48 hours Patient states she is not diabetic, she is on metformin "as a preventative measure" (5) Morbid obesity Is this a current diagnosis for this admission?: Yes Plan: Management with dietary control (6) UTI (urinary tract infection) Qualifiers: Urinary tract infection type: site unspecified Hematuria presence: without hematuria Qualified Code(s): N39.0 - Urinary tract infection, site not specified Is this a current diagnosis for this admission?: Yes Plan: Patient does not complain of urinary symptoms Initial UA positive for nitrites but negative for leuk esterase and WBCs only 5 Urine culture positive for pansensitive E. coli Given the patient's habitus, it would be very easy for her urine to be contaminated with perineum e. coli/fecal particles No plan for antibiotics at this time (7) Hallucination Is this a current diagnosis for this admission?: Yes Plan: Patient reports having hallucinations, states she is seeing kittens in her room Denies psych history Consulted Psych, who preformed a chart review. Recommend: Discontinuing ambien Decreasing neurontin dosage Restart home dose Topamax Plan to have psych solar sales representative and assessor evaluate the patient - Time Time Spent with patient: 15-24 minutes Medications reviewed and adjusted accordingly: Yes Anticipated discharge: Home Within: Other - when medically stable - Inpatient Certification Based on my medical assessment, after consideration of the patient's comorbidities, presenting symptoms, or acuity I expect that the services needed warrant INPATIENT care.: Yes I certify that my determination is in accordance with my understanding of Medicare's requirements for reasonable and necessary INPATIENT services [42 CFR 412.3e].: Yes Medical Necessity: Need for IV Antibiotics, Risk of Complication if Not Cared For in Hospital
[2019-02-03] MEDS: AMPICILLIN SODIUM/SULBACTAM NA 3 GM in NORMAL SALINE 100 ML IV SCH ×4 (03:47→21:36)
[2019-02-03 05:03] LABS: HEMATOCRIT 34.5 % (36.0-47.0); HEMOGLOBIN 11.2 g/dL (12.0-15.5); MEAN CORPUSCULAR HEMOGLOBIN 27.8 pg (27.0-33.4); MEAN CORPUSCULAR HGB CONC 32.6 g/dL (32.0-36.0); MEAN CORPUSCULAR VOLUME 85 fl (80-97); PLATELET COUNT 305 10^3/uL (150-450); RED BLOOD COUNT 4.05 10^6/uL (3.72-5.28); RED CELL DISTRIBUTION WIDTH 15.1 % (11.5-14.0); WHITE BLOOD COUNT 12.1 10^3/uL (4.0-10.5)
[2019-02-03] MEDS: TOPIRAMATE 25 MG TABLET PO SCH ×3 (05:04→21:37)
[2019-02-03] MEDS: NORTRIPTYLINE HCL 25 MG CAPSULE PO SCH ×3 (05:04→21:38)
[2019-02-03] MEDS: GABAPENTIN 300 MG CAPSULE PO SCH ×3 (05:04→21:36)
[2019-02-03] MEDS: OXYCODONE-ACETAMINOPHEN 5-325 MG TABLET PO PRN ×4 (05:04→21:37)
[2019-02-03 05:25] LABS: ALANINE AMINOTRANSFERASE 21 U/L (9-52); ALBUMIN 3.2 g/dL (3.5-5.0); ALKALINE PHOSPHATASE 95 U/L (38-126); ANION GAP 11 (5-19); ASPARTATE AMINO TRANSFERASE 13 U/L (14-36); BILIRUBIN,DIRECT 0.3 mg/dL (0.0-0.4); BILIRUBIN,TOTAL 0.3 mg/dL (0.2-1.3); BLOOD UREA NITROGEN 6 mg/dL (7-20); CALCIUM 8.4 mg/dL (8.4-10.2); CARBON DIOXIDE 29 mmol/L (22-30); CHLORIDE 98 mmol/L (98-107); GLUCOSE 153 mg/dL (75-110); POTASSIUM 3.4 mmol/L (3.6-5.0); TOTAL PROTEIN 6.2 g/dL (6.3-8.2)
[2019-02-03] MEDS ORDERED: DULOXETINE HCL 30 MG CAPSULE.DR PO SCH (10:00)
[2019-02-03] MEDS: FAMOTIDINE 20 MG TABLET PO SCH ×2 (10:06→21:38)
[2019-02-03] MEDS: PANTOPRAZOLE SODIUM 20 MG TABLET.DR PO SCH (10:06)
[2019-02-03] MEDS: DULOXETINE HCL 30 MG CAPSULE.DR PO SCH (10:07)
[2019-02-03] MEDS: ENOXAPARIN SODIUM INJ 30 MG/0.3 ML DISP.SYRIN SUBCUT SCH ×2 (10:08→21:36)
[2019-02-03] MEDS: MESALAMINE 400 MG CAPSULE.DR PO SCH ×3 (10:10→17:36)
[2019-02-03] MEDS: NORMAL SALINE 10 ML SDV (SCHEDULED) IV SCH ×2 (10:11→21:37)
[2019-02-03] MEDS: VANCOMYCIN HCL 2,000 MG in DEXTROSE 5%-WATER 500 ML IV SCH ×2 (12:17→21:36)
[2019-02-03] MEDS: IBUPROFEN 800 MG TABLET PO PRN (12:26)
[2019-02-03] MEDS: MORPHINE SULFATE 10 MG/ML INJ IV PRN ×2 (12:28→17:35)
--- NOTE | 2019-02-03 14:34 | PSYCHOLOGICAL NOTE ---
Psych Note - Psych Note Date seen by psych provider: 02/03/19 Time seen by psych provider: 13:00 - 1320 Psych Note: Reason for Consult: possible hallucinations 38 y.o. F with a PMH super morbid obesity, diabetes type 2, chronic lower back pain, arthritis, psoriasis, depression. She presented to [facility] with recurrent cellulitis of the left leg. Patient denies any significant mental health history and reports that she had mentioned thinking she was seeing things because it had startled her a few times. She reports she is not actually seeing definitive shape only an "abstract shape out of the corner of my that resembles a cat...it was the first thing I thought that it looked like." She continues to disclose "it is not like I could see its face or even the color of fur and I know there is not actually a cat the room." Patient denies any experiences like this in the past and states that she feels this may be stemming from both getting back on her medications and being sick. Patient is alert and orientated to person, place, time and circumstance. Mood is euthymic with congruent affect as evidenced by smiling engaging with clinician. Patient denies suicidal and homicidal ideation. Delusions are absent behaviors congruent with an intact reality based presentation i.e. organized and linear thought process. Clinician notes patient had mentioned concerns of seeing things out of the corner of her eye that is congruent with illusions or tricks of the light. These are not hallucinations and patient clearly articulates understanding that she is not actually seeing a cat in the room just and "abstract shape out of the corner for my eye that resembled a cat." Conversational speech is within normal rate, tone and prosody. Intellectual abilities appear to be within the average range. Attention and concentration were good. Insight, judgment, impulse control are good. Diagnosis Unspecified depressive disorder per history Unspecified anxiety disorder per history Medication recommendations per [facility] was contracted psychiatrist Dr. Ninoska SETHI a re as follows please restart home medication of Topamax please decrease home medication of Neurontin to 600 mg 3 times daily please discontinue home medication of Ambien Impression\\plan: Patient is cleared from acute psychiatric services. Patient is a pleasant and engaging. She describes experiencing some illusions and clearly articulates the understanding that things she is seeing are not actually there i.e. when noticing a dark shape out of the corner of her eye, that resembles a cat, she knows that there is not a cat in the room. Patient denies any significant mental health history. Medication recommendations were provided. Dr. Magaña was consulted to care management of this patient; attending physicians in agreement with recommendations and disposition.
[2019-02-03] MEDS: NORMAL SALINE 10 ML SDV (AFTER EACH USE) IV PRN (17:36)
[2019-02-03] MEDS: ATORVASTATIN CALCIUM 40 MG TABLET PO SCH (21:37)
[2019-02-03] MEDS: NYSTATIN 500000 UNIT/5 ML UDCUP PO SCH (22:05)
--- NOTE | 2019-02-03 22:20 | PDOC PROGRESS REPORT ---
Subjective Progress Note for:: 02/03/19 Subjective:: 38 y.o. F with a H super morbid obesity, diabetes type 2, chronic lower back pain, arthritis, psoriasis, depression. She presented to [facility] with recurrent cellulitis of the left leg. Patient was seen this morning on rounds, she is resting in the chair with her LLE elevated. She states that her LLE pain has not significantly improved today. Erythema and edema seems to improve little by little each day. Psych was able to evaluate the patient for her reports of hallucinations. They made medication recommendations but do not believe the patient is experiencing a mental health crisis at this time. Plan to continue IV antibiotics with cefazolin and vancomycin. Reason For Visit: CELLULITIS,SEPSIS Physical Exam Vital Signs: Temp Pulse Resp BP Pulse Ox 98.0 F 99 20 143/78 H 98 02/03/19 12:00 02/03/19 12:00 02/03/19 12:00 02/03/19 12:00 02/03/19 12:00 Intake & Output 02/02/19 02/03/19 02/04/19 06:59 06:59 06:59 Intake Total 1400 1999 587 Balance 1400 1999 587 Weight 210 kg General appearance: PRESENT: no acute distress, morbidly obese - SUPER MORBIDLY OBESE Head exam: PRESENT: atraumatic, normocephalic Eye exam: PRESENT: conjunctiva pink, EOMI, PERRLA. ABSENT: scleral icterus Ear exam: PRESENT: normal external ear exam Mouth exam: PRESENT: moist, tongue midline Teeth exam: PRESENT: poor dentation Neck exam: PRESENT: full ROM. ABSENT: carotid bruit, JVD, lymphadenopathy, thyromegaly Respiratory exam: PRESENT: clear to auscultation zahira, decreased breath sounds - B/L LOWER LOBES DUE TO BODY HABITUS, symmetrical, unlabored. ABSENT: rales, rhonchi, wheezes Cardiovascular exam: PRESENT: RRR. ABSENT: diastolic murmur, rubs, systolic murmur Pulses: PRESENT: normal radial pulses, +1 pedal pulses bilateral - VERY FAINT Vascular exam: PRESENT: normal capillary refill GI/Abdominal exam: PRESENT: normal bowel sounds, soft. ABSENT: distended, guarding, mass, organolmegaly, rebound, tenderness Rectal exam: PRESENT: deferred Extremities exam: PRESENT: full ROM, pedal edema, other - SEVERE LYMPHEDEMA TO B/L LOWER LEGS L>R. ABSENT: calf tenderness, clubbing Musculoskeletal exam: PRESENT: ambulatory - WITH ASSISTANCE, full ROM. ABSENT: normal inspection Neurological exam: PRESENT: alert, awake, oriented to person, oriented to place, oriented to time, oriented to situation, CN II-XII grossly intact. ABSENT: motor sensory deficit Psychiatric exam: PRESENT: appropriate affect, normal mood, other - HALLUCINATIONS - PATIENT REPORTS SEEING CATS Skin exam: PRESENT: dry, intact, warm. ABSENT: cyanosis, rash Results Laboratory Results: 02/03/19 04:51 02/03/19 04:51 02/03/19 02/03/19 02/03/19 04:51 04:51 04:51 WBC 12.1 H RBC 4.05 Hgb 11.2 L Hct 34.5 L MCV 85 MCH 27.8 MCHC 32.6 RDW 15.1 H Plt Count 305 Sodium 138.0 Potassium 3.4 L Chloride 98 Carbon Dioxide 29 Anion Gap 11 BUN 6 L Creatinine 0.78 Est GFR ( Amer) > 60 Est GFR (Non-Af Amer) > 60 Glucose 153 H Calcium 8.4 Total Bilirubin 0.3 AST 13 L ALT 21 Alkaline Phosphatase 95 Total Protein 6.2 L Albumin 3.2 L Vitamin B12 801.0 TSH 2.91 01/29/19 12:10 Blood Blood Culture - Final NO GROWTH IN 5 DAYS 01/29/19 11:27 Blood Blood Culture - Final NO GROWTH IN 5 DAYS Impressions: Venous Doppler Study 01/29/19 13:01 IMPRESSION: Examination is significantly limited by large body habitus and soft tissue edema. The mid to distal portions of the femoral vein and the calf veins are inadequately visualized. Within this limitation, no evidence of deep venous thrombosis in the left lower extremity. Guidance Fluoroscopy 02/02/19 00:00 IMPRESSION: SUCCESSFUL PLACEMENT OF A 5 FR DUAL LUMEN 43 CM PICC IN THE RIGHT BASILIC VEIN. Interventional Vascular Procedure 02/02/19 00:00 IMPRESSION: SUCCESSFUL PLACEMENT OF A 5 FR DUAL LUMEN 43 CM PICC IN THE RIGHT BASILIC VEIN. Chest X-Ray 02/02/19 10:25 IMPRESSION: NO SIGNIFICANT RADIOGRAPHIC FINDING IN THE CHEST. PICC Line Insertion 02/02/19 13:50 IMPRESSION: SUCCESSFUL PLACEMENT OF A 5 FR DUAL LUMEN 43 CM PICC IN THE RIGHT BASILIC VEIN. Status: Imported from PACS Assessment and Plan - Diagnosis (1) Sepsis Qualifiers: Sepsis type: sepsis due to unspecified organism Qualified Code(s): A41.9 - Sepsis, unspecified organism Is this a current diagnosis for this admission?: Yes Plan: Improving Secondary to cellulitis stemming from open wound to the left knee, chronic lymphedema and venous stasis Afebrile, leukocytosis improving 13-->14-->12 Empirically treated with vancomycin and cefepime in ED Was being treated with IV Unasyn and vancomycin, switched Unasyn to Cefazolin per IDSA recommendations (2) Chronic acquired lymphedema Is this a current diagnosis for this admission?: Yes Plan: Worsening edema today Patient complains of "feeling like my leg will burst open" Plan for lasix today Follow-up with her primary physician. (3) Left leg cellulitis Is this a current diagnosis for this admission?: Yes Plan: PRN Tylenol, Tramadol and ibuprofen for pain Remaining plan as above (4) Type 2 diabetes mellitus Is this a current diagnosis for this admission?: No Plan: Hgb A1c 6.0% Hold home dose Metformin Accuchecks have been normal x 48 hours Patient states she is not diabetic, she is on metformin "as a preventative measure" (5) Morbid obesity Is this a current diagnosis for this admission?: Yes Plan: Management with dietary control (6) UTI (urinary tract infection) Qualifiers: Urinary tract infection type: site unspecified Hematuria presence: without hematuria Qualified Code(s): N39.0 - Urinary tract infection, site not specified Is this a current diagnosis for this admission?: Yes Plan: Patient does not complain of urinary symptoms Initial UA positive for nitrites but negative for leuk esterase and WBCs only 5 Urine culture positive for pansensitive E. coli Given the patient's habitus, it would be very easy for her urine to be contaminated with perineum e. coli/fecal particles No plan for antibiotics at this time (7) Hallucination Is this a current diagnosis for this admission?: Yes Plan: Patient reports having hallucinations, states she is seeing kittens in her room Denies psych history Consulted Psych, who preformed a chart review. Recommend: Discontinuing ambien Decreasing neurontin dosage Restart home dose Topamax Psych customer contact representative evaluated the patient, does not feel that she is suffering from an acute mental health crisis. States this is episodic. - Time Time Spent with patient: 15-24 minutes Medications reviewed and adjusted accordingly: Yes Anticipated discharge: Home Within: within 48 hours, within 36 hours - Inpatient Certification Based on my medical assessment, after consideration of the patient's comorbidities, presenting symptoms, or acuity I expect that the services needed warrant INPATIENT care.: Yes I certify that my determination is in accordance with my understanding of Medicare's requirements for reasonable and necessary INPATIENT services [42 CFR 412.3e].: Yes Medical Necessity: Need for IV Antibiotics, Risk of Complication if Not Cared For in Hospital
[2019-02-04] MEDS: MORPHINE SULFATE 10 MG/ML INJ IV PRN ×5 (00:08→21:52)
[2019-02-04] MEDS: OXYCODONE-ACETAMINOPHEN 5-325 MG TABLET PO PRN ×4 (02:00→18:56)
[2019-02-04] MEDS: IBUPROFEN 800 MG TABLET PO PRN ×3 (02:02→18:57)
[2019-02-04] MEDS: AMPICILLIN SODIUM/SULBACTAM NA 3 GM in NORMAL SALINE 100 ML IV SCH ×4 (04:08→21:52)
[2019-02-04] MEDS: GABAPENTIN 300 MG CAPSULE PO SCH ×3 (05:32→21:51)
[2019-02-04] MEDS: TOPIRAMATE 25 MG TABLET PO SCH ×3 (05:32→21:51)
[2019-02-04] MEDS: NORTRIPTYLINE HCL 25 MG CAPSULE PO SCH ×3 (05:34→21:52)
[2019-02-04] MEDS: PANTOPRAZOLE SODIUM 20 MG TABLET.DR PO SCH (07:59)
[2019-02-04] MEDS: MESALAMINE 400 MG CAPSULE.DR PO SCH ×3 (10:05→17:38)
[2019-02-04] MEDS: FAMOTIDINE 20 MG TABLET PO SCH ×2 (10:05→21:51)
[2019-02-04] MEDS: VANCOMYCIN HCL 2,000 MG in DEXTROSE 5%-WATER 500 ML IV SCH ×2 (10:05→21:52)
[2019-02-04] MEDS: NYSTATIN 500000 UNIT/5 ML UDCUP PO SCH (10:06)
[2019-02-04] MEDS: ENOXAPARIN SODIUM INJ 30 MG/0.3 ML DISP.SYRIN SUBCUT SCH (10:06)
[2019-02-04] MEDS: NORMAL SALINE 10 ML SDV (SCHEDULED) IV SCH ×2 (10:06→21:53)
[2019-02-04] MEDS: DULOXETINE HCL 30 MG CAPSULE.DR PO SCH (10:06)
[2019-02-04] MEDS ORDERED: ENOXAPARIN SODIUM INJ 120 MG/0.8 ML DISP.SYRIN SUBCUT SCH (13:00)
[2019-02-04 13:41] LABS: HEMATOCRIT 32.2 % (36.0-47.0); HEMOGLOBIN 10.6 g/dL (12.0-15.5); MEAN CORPUSCULAR HEMOGLOBIN 27.8 pg (27.0-33.4); MEAN CORPUSCULAR HGB CONC 32.8 g/dL (32.0-36.0); MEAN CORPUSCULAR VOLUME 85 fl (80-97); PLATELET COUNT 373 10^3/uL (150-450); RED BLOOD COUNT 3.81 10^6/uL (3.72-5.28); RED CELL DISTRIBUTION WIDTH 15.4 % (11.5-14.0); WHITE BLOOD COUNT 11.5 10^3/uL (4.0-10.5)
[2019-02-04 14:00] LABS: ALANINE AMINOTRANSFERASE 18 U/L (9-52); ALKALINE PHOSPHATASE 85 U/L (38-126); ANION GAP 8 (5-19); ASPARTATE AMINO TRANSFERASE 18 U/L (14-36); BILIRUBIN,DIRECT 0.4 mg/dL (0.0-0.4); BILIRUBIN,TOTAL 0.5 mg/dL (0.2-1.3); BLOOD UREA NITROGEN 5 mg/dL (7-20); CALCIUM 8.4 mg/dL (8.4-10.2); CARBON DIOXIDE 32 mmol/L (22-30); CHLORIDE 96 mmol/L (98-107); GLUCOSE 159 mg/dL (75-110); PHOSPHORUS 4.5 mg/dL (2.5-4.5); POTASSIUM 3.7 mmol/L (3.6-5.0); SODIUM 135.8 mmol/L (137-145)
[2019-02-04] MEDS: NYSTATIN/DEXAMETH/DIPHEN SUSP 120 ML PO SCH ×3 (14:41→21:52)
[2019-02-04] MEDS: BENZOCAINE/MENTHOL SORE THROAT LOZENGE BUCCAL PRN (14:51)
[2019-02-04 16:20] LABS: APPEARANCE,URINE CLOUDY; BILIRUBIN,URINE NEGATIVE (NEGATIVE); COLOR,URINE YELLOW; GLUCOSE, URINE NEGATIVE (NEGATIVE); KETONES,URINE NEGATIVE (NEGATIVE); LEUKOCYTE ESTERASE,URINE TRACE (NEGATIVE); NITRITE,URINE NEGATIVE (NEGATIVE); PROTEIN,URINE NEGATIVE (NEGATIVE); URINE SPECIFIC GRAVITY 1.013; UROBILINOGEN,URINE NEGATIVE mg/dL (<2.0)
[2019-02-04] MEDS: NORMAL SALINE 10 ML SDV (AFTER EACH USE) IV PRN (18:00)
[2019-02-04] MEDS ORDERED: FLUCONAZOLE 100 MG TABLET PO ONE (20:00)
[2019-02-04 20:54] LABS: VANCOMYCIN,TROUGH 14.2 ug/mL (5.0-20.0)
--- NOTE | 2019-02-04 21:24 | PDOC PROGRESS REPORT ---
Subjective Progress Note for:: 02/04/19 Subjective:: 38 y.o. F with a PMH super morbid obesity, diabetes type 2, chronic lower back pain, arthritis, psoriasis, depression. She presented to [facility] with recurrent cellulitis of the left leg. Patient was seen this morning on rounds, she is resting in the bed with her LLE elevated. She states that she still has LLE pain, worse at her L calf. Erythema and edema are unchanged, it is circumfrential below the knee and radiates up the medial thigh. There is a ~3 inch wound on her L knee, there are a few small areas where the wound is open to air but there is no drainage whatsoever. Venous doppler of LLE pending. Evaluating for DVT given the patient's complaint of calf pain. Plan to continue IV antibiotics with cefazolin and vancomycin. Will consult MAKENZIE BRO regarding this patient's antibiotic regimen. Reason For Visit: CELLULITIS,SEPSIS Physical Exam Vital Signs: Temp Pulse Resp BP Pulse Ox 98.2 F 101 H 16 143/79 H 93 02/04/19 20:11 02/04/19 20:11 02/04/19 20:11 02/04/19 20:11 02/04/19 20:11 Intake & Output 02/03/19 02/04/19 02/05/19 06:59 06:59 06:59 Intake Total 1999 3337 1900 Output Total 150 Balance 1999 3337 1750 Weight 207.3 kg General appearance: PRESENT: morbidly obese Head exam: PRESENT: atraumatic Eye exam: PRESENT: conjunctiva pink, PERRLA Mouth exam: PRESENT: moist Teeth exam: PRESENT: poor dentation Neck exam: PRESENT: full ROM Respiratory exam: PRESENT: clear to auscultation zahira, decreased breath sounds - b/l lower lobes, symmetrical, unlabored Cardiovascular exam: PRESENT: +S1, +S2 Pulses: PRESENT: normal radial pulses, +1 pedal pulses bilateral Vascular exam: PRESENT: normal capillary refill GI/Abdominal exam: PRESENT: soft, other - rotund. obese.. ABSENT: distended, tenderness Rectal exam: PRESENT: deferred Extremities exam: PRESENT: calf tenderness - LLE, pedal edema Musculoskeletal exam: ABSENT: full ROM, normal inspection Neurological exam: PRESENT: alert, awake, oriented to person, oriented to place, oriented to time, oriented to situation Psychiatric exam: PRESENT: appropriate affect Skin exam: PRESENT: dry, erythema - ERYTHEMA TO LLE BELOW THE KNEE SPREADING TO THE MEDIAL THIGH, other - OPEN WOUND TO L KNEE Results Laboratory Results: 02/04/19 13:10 02/04/19 20:10 02/04/19 02/04/19 02/04/19 13:10 13:10 15:50 WBC 11.5 H RBC 3.81 Hgb 10.6 L Hct 32.2 L MCV 85 MCH 27.8 MCHC 32.8 RDW 15.4 H Plt Count 373 Sodium 135.8 L Potassium 3.7 Chloride 96 L Carbon Dioxide 32 H Anion Gap 8 BUN 5 L Creatinine 0.74 Est GFR ( Amer) > 60 Est GFR (Non-Af Amer) > 60 Glucose 159 H Calcium 8.4 Phosphorus 4.5 Magnesium 1.9 Total Bilirubin 0.5 AST 18 ALT 18 Alkaline Phosphatase 85 Total Protein 6.0 L Albumin 3.0 L Urine Color YELLOW Urine Appearance CLOUDY Urine pH 6.0 Ur Specific [place] 1.013 Urine Protein NEGATIVE Urine Glucose (UA) NEGATIVE Urine Ketones NEGATIVE Urine Blood MODERATE H Urine Nitrite NEGATIVE Ur Leukocyte Esterase TRACE H Urine WBC (Auto) 5 Urine RBC (Auto) 5 02/04/19 20:10 WBC RBC Hgb Hct MCV MCH MCHC RDW Plt Count Sodium Potassium Chloride Carbon Dioxide Anion Gap BUN Creatinine 0.81 Est GFR ( Amer) > 60 Est GFR (Non-Af Amer) > 60 Glucose Calcium Phosphorus Magnesium Total Bilirubin AST ALT Alkaline Phosphatase Total Protein Albumin Urine Color Urine Appearance Urine pH Ur Specific [place] Urine Protein Urine Glucose (UA) Urine Ketones Urine Blood Urine Nitrite Ur Leukocyte Esterase Urine WBC (Auto) Urine RBC (Auto) Impressions: Venous Doppler Study 01/29/19 13:01 IMPRESSION: Examination is significantly limited by large body habitus and soft tissue edema. The mid to distal portions of the femoral vein and the calf veins are inadequately visualized. Within this limitation, no evidence of deep venous thrombosis in the left lower extremity. Guidance Fluoroscopy 02/02/19 00:00 IMPRESSION: SUCCESSFUL PLACEMENT OF A 5 FR DUAL LUMEN 43 CM PICC IN THE RIGHT BASILIC VEIN. Interventional Vascular Procedure 02/02/19 00:00 IMPRESSION: SUCCESSFUL PLACEMENT OF A 5 FR DUAL LUMEN 43 CM PICC IN THE RIGHT BASILIC VEIN. Chest X-Ray 02/02/19 10:25 IMPRESSION: NO SIGNIFICANT RADIOGRAPHIC FINDING IN THE CHEST. PICC Line Insertion 02/02/19 13:50 IMPRESSION: SUCCESSFUL PLACEMENT OF A 5 FR DUAL LUMEN 43 CM PICC IN THE RIGHT BASILIC VEIN. Status: Imported from PACS Assessment and Plan - Diagnosis (1) Sepsis Qualifiers: Sepsis type: sepsis due to unspecified organism Qualified Code(s): A41.9 - Sepsis, unspecified organism Is this a current diagnosis for this admission?: Yes Plan: Improving Secondary to cellulitis stemming from cellulitis of the LLE, chronic lymphedema and venous stasis Afebrile, leukocytosis improving 13-->14-->12-->11.5 Empirically treated with vancomycin and cefepime in ED Was being treated with IV Unasyn and vancomycin, switched vancomycin to Cefazolin per IDSA recommendations Patient's cellulitis persists, has not improved. Will attempt lower extremity wrapping and consult [facility] regarding antibiotic choices. (2) Chronic acquired lymphedema Is this a current diagnosis for this admission?: Yes Plan: Worsening edema today Patient complains of "feeling like my leg will burst open" Attempted IV lasix but did not offer much relief Will attempt to wrap lower extremity with DIONICIO bandage (typical treatment done three times per week as outpatient) Will consult Dr. Judd Stephens for recommendations Follow-up with her primary physician. (3) Left leg cellulitis Is this a current diagnosis for this admission?: Yes Plan: PRN Tylenol, Tramadol and ibuprofen for pain Remaining plan as above (4) Type 2 diabetes mellitus Is this a current diagnosis for this admission?: No Plan: Hgb A1c 6.0% Hold home dose Metformin Accuchecks have been normal x 48 hours Patient states she is not diabetic, she is on metformin "as a preventative measure" (5) Morbid obesity Is this a current diagnosis for this admission?: Yes Plan: Management with dietary control (6) UTI (urinary tract infection) Qualifiers: Urinary tract infection type: site unspecified Hematuria presence: without hematuria Qualified Code(s): N39.0 - Urinary tract infection, site not specified Is this a current diagnosis for this admission?: Yes Plan: Patient does not complain of urinary symptoms, no dysuria, frequency or urgency Initial UA positive for nitrites but negative for leuk esterase and WBCs only 5 Urine culture positive for pansensitive E. coli Given the patient's habitus, it would be very easy for her urine to be contaminated with perineum e. coli/fecal particles No plan for antibiotics at this time (7) Hallucination Is this a current diagnosis for this admission?: Yes Plan: Patient reports having hallucinations, states she is seeing kittens in her room Denies psych history Consulted Psych, who preformed a chart review. Recommend: Discontinuing ambien Decreasing neurontin dosage Restart home dose Topamax Psych public relations representative evaluated the patient, does not feel that she is suffering from an acute mental health crisis. States this is episodic. - Time Time Spent with patient: 15-24 minutes Medications reviewed and adjusted accordingly: Yes Anticipated discharge: Home - Inpatient Certification Based on my medical assessment, after consideration of the patient's comorbidities, presenting symptoms, or acuity I expect that the services needed warrant INPATIENT care.: Yes I certify that my determination is in accordance with my understanding of Medicare's requirements for reasonable and necessary INPATIENT services [42 CFR 412.3e].: Yes Medical Necessity: Need Close Monitoring Due to Risk of Patient Decompensation, Need for IV Antibiotics, Risk of Complication if Not Cared For in Hospital
[2019-02-04] MEDS: ATORVASTATIN CALCIUM 40 MG TABLET PO SCH (21:51)
[2019-02-05] MEDS: OXYCODONE-ACETAMINOPHEN 5-325 MG TABLET PO PRN ×4 (01:12→19:34)
[2019-02-05] MEDS: AMPICILLIN SODIUM/SULBACTAM NA 3 GM in NORMAL SALINE 100 ML IV SCH ×3 (04:08→16:31)
[2019-02-05] MEDS: MORPHINE SULFATE 10 MG/ML INJ IV PRN ×4 (04:15→21:42)
[2019-02-05] MEDS: TOPIRAMATE 25 MG TABLET PO SCH ×3 (05:24→21:43)
[2019-02-05] MEDS: GABAPENTIN 300 MG CAPSULE PO SCH ×3 (05:24→21:43)
[2019-02-05] MEDS: NORTRIPTYLINE HCL 25 MG CAPSULE PO SCH ×3 (05:25→23:53)
[2019-02-05 05:47] LABS: HEMATOCRIT 33.1 % (36.0-47.0); HEMOGLOBIN 10.7 g/dL (12.0-15.5); MEAN CORPUSCULAR HEMOGLOBIN 27.5 pg (27.0-33.4); MEAN CORPUSCULAR HGB CONC 32.4 g/dL (32.0-36.0); MEAN CORPUSCULAR VOLUME 85 fl (80-97); PLATELET COUNT 441 10^3/uL (150-450); RED BLOOD COUNT 3.91 10^6/uL (3.72-5.28); WHITE BLOOD COUNT 11.2 10^3/uL (4.0-10.5)
[2019-02-05 06:10] LABS: ALANINE AMINOTRANSFERASE 21 U/L (9-52); ALBUMIN 3.2 g/dL (3.5-5.0); ALKALINE PHOSPHATASE 92 U/L (38-126); ANION GAP 10 (5-19); ASPARTATE AMINO TRANSFERASE 14 U/L (14-36); BILIRUBIN,DIRECT 0.3 mg/dL (0.0-0.4); BILIRUBIN,TOTAL 0.4 mg/dL (0.2-1.3); BLOOD UREA NITROGEN 6 mg/dL (7-20); CALCIUM 8.6 mg/dL (8.4-10.2); CARBON DIOXIDE 31 mmol/L (22-30); CHLORIDE 97 mmol/L (98-107); GLUCOSE 156 mg/dL (75-110); PHOSPHORUS 4.7 mg/dL (2.5-4.5); POTASSIUM 3.3 mmol/L (3.6-5.0); SODIUM 137.8 mmol/L (137-145); TOTAL PROTEIN 6.5 g/dL (6.3-8.2)
[2019-02-05] MEDS ORDERED: HEPARIN SOD (PORCINE) 1,000 UNIT/ML 10 ML VIAL IV ONE (08:00)
[2019-02-05] MEDS ORDERED: HEPARIN SOD (PORCINE) 1,000 UNIT/ML 10 ML VIAL IV PRN (08:30)
[2019-02-05] MEDS: DULOXETINE HCL 30 MG CAPSULE.DR PO SCH (09:25)
[2019-02-05] MEDS: PANTOPRAZOLE SODIUM 20 MG TABLET.DR PO SCH (09:25)
[2019-02-05] MEDS: FAMOTIDINE 20 MG TABLET PO SCH ×2 (09:25→21:43)
[2019-02-05] MEDS: FLUCONAZOLE 100 MG TABLET PO SCH (09:25)
[2019-02-05] MEDS: MESALAMINE 400 MG CAPSULE.DR PO SCH ×3 (09:26→17:16)
[2019-02-05] MEDS: NYSTATIN/DEXAMETH/DIPHEN SUSP 120 ML PO SCH ×4 (09:27→21:20)
[2019-02-05] MEDS: HEPARIN SODIUM,PORCINE/D5W 25,000 UNIT/250 ML RTUINJ IV PRN (09:34)
[2019-02-05] MEDS: NORMAL SALINE 10 ML SDV (SCHEDULED) IV SCH ×2 (09:58→23:54)
[2019-02-05] MEDS ORDERED: VANCOMYCIN HCL 2,000 MG in DEXTROSE 5%-WATER 500 ML IV SCH (10:00)
[2019-02-05] MEDS: ALBUTEROL SULFATE HFA (90 MCG/PUFF) 200 PUFF/8.5 GM MDI IH PRN (13:13)
[2019-02-05 13:38] LABS: APPEARANCE,URINE SLIGHTLY-CLOUDY; BILIRUBIN,URINE NEGATIVE (NEGATIVE); COLOR,URINE YELLOW; GLUCOSE, URINE NEGATIVE (NEGATIVE); KETONES,URINE NEGATIVE (NEGATIVE); LEUKOCYTE ESTERASE,URINE NEGATIVE (NEGATIVE); NITRITE,URINE NEGATIVE (NEGATIVE); PROTEIN,URINE NEGATIVE (NEGATIVE); UROBILINOGEN,URINE NEGATIVE mg/dL (<2.0)
--- NOTE | 2019-02-05 15:02 | XCELERA REPORT ---
[address] [address] Lower Extremity Venous Evaluation Procedure: Color flow and duplex imaging of the veins of the left lower extremity as well as the right Common Femoral vein. Right Sided Venous Evaluation The right common femoral vein is fully compressible. Spontaneous and phasic flow is present in the right common femoral vein. Left Sided Venous Evaluation Study limited by body habitus, Normal vessel filling wall to wall, compression and augmentation as well as Colour flow down to the infrageniculate veins. Considerable subcutaneous edema seen on romo scale. Hard to see Femoral and Peroneal veins completely. Interpretation Summary No duplex evidence of DVT or obstruction in the left lower extremity nor in the right Common Femoral vein. Study limited as noted. Considerable tissue edema noted. Name: GIOVANNI GROVE Age: 38 yrs Gender: Female : 1980 Patient Status: Inpatient Patient Location: [address] [place] [address] Study Date: 02/05/2019 11:36 AM Reason For Study: LLE calf pain Ordering Physician: THERESA CARRIZALES Performed By: Edie David : THERESA CARRIZALES > Judd Stephens
[2019-02-05 17:15] LABS: HEMATOCRIT 31.2 % (36.0-47.0); HEMOGLOBIN 10.1 g/dL (12.0-15.5); MEAN CORPUSCULAR HEMOGLOBIN 27.7 pg (27.0-33.4); MEAN CORPUSCULAR HGB CONC 32.5 g/dL (32.0-36.0); MEAN CORPUSCULAR VOLUME 85 fl (80-97); PLATELET COUNT 468 10^3/uL (150-450); RED BLOOD COUNT 3.66 10^6/uL (3.72-5.28); RED CELL DISTRIBUTION WIDTH 15.1 % (11.5-14.0); WHITE BLOOD COUNT 13.3 10^3/uL (4.0-10.5)
--- NOTE | 2019-02-05 19:39 | Progress Note ---
Provider Note Provider Note: ID Telephone Consultation Note Asked to review patient's chart. Pt not seen or examined. Reviewed VS, imaging reports, microbiology results, provider notes. Pt is a 38 year old woman with super morbid obesity with BMI of 79, type II DM, chronic pain, lymphedema, and depression who presented to [facility] on 01/29 with in creased pain to her legs bilterally that was associated with nausea, diarrhea, body aches, subjective fever, and increased redness of the LLE. She was afebrile but tachycardic. Her exam was not remarkable apart from her obese body habitus, bilateral lower extremity edema with bilateral redness that extended in sandeep left lower leg up to the L medial thigh, per ED note. She also has a chronic nonpuru lent, nondraining wound to the anterior surface of the L knee. She complained of pain in the LLE. Her initial labs included leukocytosis and elevation in lactate. Blood cultures have been negative. Leukocytosis improved from 29k to 13k. Empirically Unasyn and vancomycin were started. No evidence was found of DVT in the LLE with ultrasound studies, although her obesity has somewhat hampered the studies. Impression/Recommendations Pt may have unilateral cellulitis superimposed on chronic lymphedema if the erythema and swelling and pain are markedly worse in the LLE. She complained of subjective fever at home, although she has been afebrile here, and she was noted to have incremental improvement in erythema and edema with each passing day of her admission with elevation of the leg and antibiotic treatment for nonpurulent cellulitis. MRSA is not likely to cause nonpurulent cellulitis, and vancomycin potentially may cause nephrotoxicity, particularly with larger daily doses. Would discon tinue vancomycin. Gram negatives are unlikely to be involved without specific risk factors, such as cat or dog bite or human bite or aquatic soft tissue injury. Treatment should be aimed at the major causes of nonpurulent cellulitis - beta hemolytic streptococci (mostly Group A Strep). IV cefazolin 2 grams q8h or Iv nafcillin 12 grams continuous infusion (or 2 grams q4h) is effective against beta-hemolytic streptocci and also MSSA. Can transition to 1 gram q 6h Keflex PO when she is ready for discharge. Paresh Sherman MD [facility] Infectious Diseases pager [phone]
[2019-02-05] MEDS: ACETAMINOPHEN 325 MG TABLET PO PRN (20:04)
[2019-02-05] MEDS: ONDANSETRON HCL INJ/PF 4 MG/2 ML SDV IV PRN (21:42)
[2019-02-05] MEDS: ATORVASTATIN CALCIUM 40 MG TABLET PO SCH (21:42)
--- NOTE | 2019-02-05 22:38 | PDOC PROGRESS REPORT ---
Subjective Progress Note for:: 02/05/19 Subjective:: 38 y.o. F with a PMH super morbid obesity, diabetes type 2, chronic lower back pain, arthritis, psoriasis, depression. She presented to [facility] with recurrent cellulitis of the left leg. Patient was seen this morning on rounds, she is resting in the bedside recline with her leg dangling towards the floor. The patient has been told by multiple staff members that she needs to elevate her leg, but she states it causes her pain because it puts too much pressure on her calf. She endorses persistent LLE pain, worse at her L calf. Erythema and edema are unchanged, it is circumfrential below the knee and radiates up the medial thigh. There is a ~3 inch wound on her L knee, there are a few small areas where the wound is open to air but there is no drainage whatsoever. Repeat Venous doppler of LLE done today. Awaiting results. Evaluating for DVT given the patient's complaint of worsening calf pain. Consulted Dr. Judd Stephens, appreciate his recommendations. Suspicious for DVT given patient's symptomology. Plan to start Heparin gtt today. If Venous Doppler results are negative, will discontinue. Plan to continue IV antibiotics with cefazolin and vancomycin. Consulted MAKENZIE BRO regarding this patient's antibiotic regimen. Dr. Sherman, recommended disconti nuing vancomycin IV and continue with cefazolin only. The patient will remain at [facility] for treatment of her cellulitis. Reason For Visit: CELLULITIS,SEPSIS Physical Exam Vital Signs: Temp Pulse Resp BP Pulse Ox 98.2 F 98 18 131/77 H 95 02/04/19 23:20 02/04/19 23:20 02/04/19 23:20 02/04/19 23:20 02/04/19 23:20 Intake & Output 02/04/19 02/05/19 02/06/19 06:59 06:59 06:59 Intake Total 3337 3810 Output Total 1999 Balance 3337 1810 Weight 207.3 kg 203.1 kg General appearance: PRESENT: no acute distress, morbidly obese Head exam: PRESENT: atraumatic, normocephalic Eye exam: PRESENT: conjunctiva pink, EOMI, PERRLA. ABSENT: scleral icterus Ear exam: PRESENT: normal external ear exam Mouth exam: PRESENT: moist, tongue midline Teeth exam: PRESENT: poor dentation Neck exam: ABSENT: carotid bruit, JVD, lymphadenopathy, thyromegaly Respiratory exam: PRESENT: clear to auscultation zahira, decreased breath sounds - b/l lower lobes due to body habitus, symmetrical, unlabored. ABSENT: rales, rhonchi, wheezes Cardiovascular exam: PRESENT: RRR. ABSENT: diastolic murmur, rubs, systolic murmur Pulses: PRESENT: normal radial pulses, +1 pedal pulses bilateral - palpable DP pulses in both feet Vascular exam: PRESENT: normal capillary refill GI/Abdominal exam: PRESENT: normal bowel sounds, soft, other - OBESE. ROTUND.. ABSENT: distended, guarding, mass, organolmegaly, rebound, tenderness Rectal exam: PRESENT: deferred Extremities exam: PRESENT: tenderness. ABSENT: calf tenderness, clubbing, full ROM - PARTIAL ROM DUE TO PAIN IN LLE, pedal edema Musculoskeletal exam: PRESENT: ambulatory - WITH WALKER. ABSENT: full ROM, normal inspection Neurological exam: PRESENT: alert, awake, oriented to person, oriented to place, oriented to time, oriented to situation Psychiatric exam: PRESENT: appropriate affect, normal mood Skin exam: PRESENT: dry, erythema - CIRCUMFRENTIAL ERYTHEMA TO LLE BELOW THE KNEE, SPREADING UP TO MEDIAL THIGH, intact, warm. ABSENT: cyanosis, rash Results Laboratory Results: 02/05/19 05:30 02/05/19 05:30 02/04/19 02/04/19 02/04/19 13:10 13:10 15:50 WBC 11.5 H RBC 3.81 Hgb 10.6 L Hct 32.2 L MCV 85 MCH 27.8 MCHC 32.8 RDW 15.4 H Plt Count 373 Sodium 135.8 L Potassium 3.7 Chloride 96 L Carbon Dioxide 32 H Anion Gap 8 BUN 5 L Creatinine 0.74 Est GFR ( Amer) > 60 Est GFR (Non-Af Amer) > 60 Glucose 159 H Calcium 8.4 Phosphorus 4.5 Magnesium 1.9 Total Bilirubin 0.5 AST 18 ALT 18 Alkaline Phosphatase 85 Total Protein 6.0 L Albumin 3.0 L Urine Color YELLOW Urine Appearance CLOUDY Urine pH 6.0 Ur Specific Fletcher 1.013 Urine Protein NEGATIVE Urine Glucose (UA) NEGATIVE Urine Ketones NEGATIVE Urine Blood MODERATE H Urine Nitrite NEGATIVE Ur Leukocyte Esterase TRACE H Urine WBC (Auto) 5 Urine RBC (Auto) 5 02/04/19 02/05/19 02/05/19 20:10 05:30 05:30 WBC 11.2 H RBC 3.91 Hgb 10.7 L Hct 33.1 L MCV 85 MCH 27.5 MCHC 32.4 RDW 15.0 H Plt Count 441 Sodium 137.8 Potassium 3.3 L Chloride 97 L Carbon Dioxide 31 H Anion Gap 10 BUN 6 L Creatinine 0.81 0.82 Est GFR ( Amer) > 60 > 60 Est GFR (Non-Af Amer) > 60 > 60 Glucose 156 H Calcium 8.6 Phosphorus 4.7 H Magnesium 2.0 Total Bilirubin 0.4 AST 14 ALT 21 Alkaline Phosphatase 92 Total Protein 6.5 Albumin 3.2 L Urine Color Urine Appearance Urine pH Ur Specific Fletcher Urine Protein Urine Glucose (UA) Urine Ketones Urine Blood Urine Nitrite Ur Leukocyte Esterase Urine WBC (Auto) Urine RBC (Auto) Impressions: Venous Doppler Study 01/29/19 13:01 IMPRESSION: Examination is significantly limited by large body habitus and soft tissue edema. The mid to distal portions of the femoral vein and the calf veins are inadequately visualized. Within this limitation, no evidence of deep venous thrombosis in the left lower extremity. Guidance Fluoroscopy 02/02/19 00:00 IMPRESSION: SUCCESSFUL PLACEMENT OF A 5 FR DUAL LUMEN 43 CM PICC IN THE RIGHT BASILIC VEIN. Interventional Vascular Procedure 02/02/19 00:00 IMPRESSION: SUCCESSFUL PLACEMENT OF A 5 FR DUAL LUMEN 43 CM PICC IN THE RIGHT BASILIC VEIN. Chest X-Ray 02/02/19 10:25 IMPRESSION: NO SIGNIFICANT RADIOGRAPHIC FINDING IN THE CHEST. PICC Line Insertion 02/02/19 13:50 IMPRESSION: SUCCESSFUL PLACEMENT OF A 5 FR DUAL LUMEN 43 CM PICC IN THE RIGHT BASILIC VEIN. Status: Imported from PACS Assessment and Plan - Diagnosis (1) Sepsis Qualifiers: Sepsis type: sepsis due to unspecified organism Qualified Code(s): A41.9 - Sepsis, unspecified organism Is this a current diagnosis for this admission?: Yes Plan: Improving Secondary to cellulitis stemming from cellulitis of the LLE, chronic lymphedema and venous stasis Afebrile, leukocytosis improving 13-->14-->12-->11.5-->13.3 Empirically treated with vancomycin and cefepime in ED Was being treated with IV Unasyn and vancomycin, switched vancomycin to Cefazolin per IDSA recommendations Patient's cellulitis persists, has not improved. Will attempt lower extremity wrapping Consulted MAKENZIE BRO today, recommend discontinuing vancomycin IV an continue with cefazolin only. (2) Chronic acquired lymphedema Is this a current diagnosis for this admission?: Yes Plan: Worsening edema today Patient complains of "feeling like my leg will burst open" Attempted IV lasix but did not offer much relief Will attempt to wrap lower extremity with DIONICIO bandage (typical treatment done three times per week as outpatient) Initiated heparin gtt for possible DVT. Clinical diagnosis based on her worsening calf pain, risk factors for DVT and (+) D-dimer. Consulted Dr. Judd Stephens today, appreciate recommendations Follow-up with her primary physician and lymphedema clinic at discharge (3) Left leg cellulitis Is this a current diagnosis for this admission?: Yes Plan: PRN Tylenol, Tramadol and ibuprofen for pain Remaining plan as above (4) Type 2 diabetes mellitus Is this a current diagnosis for this admission?: No Plan: Hgb A1c 6.0% Hold home dose Metformin Accuchecks have been normal x 48 hours Patient states she is not diabetic, she is on metformin "as a preventative measure" (5) Morbid obesity Is this a current diagnosis for this admission?: Yes Plan: Management with dietary control (6) UTI (urinary tract infection) Qualifiers: Urinary tract infection type: site unspecified Hematuria presence: without hematuria Qualified Code(s): N39.0 - Urinary tract infection, site not specified Is this a current diagnosis for this admission?: Yes Plan: Patient does not complain of urinary symptoms, no dysuria, frequency or urgency Initial UA positive for nitrites but negative for leuk esterase and WBCs only 5 Urine culture positive for pansensitive E. coli Given the patient's habitus, it would be very easy for her urine to be contaminated with perineum e. coli/fecal particles No plan for antibiotics at this time (7) Hallucination Is this a current diagnosis for this admission?: Yes Plan: Patient reports having hallucinations, states she is seeing kittens in her room Denies psych history Consulted Psych, who preformed a chart review. Recommend: Discontinuing ambien Decreasing neurontin dosage Restart home dose Topamax Psych new accounts banking representative evaluated the patient, does not feel that she is suffering from an acute mental health crisis. States this is episodic. - Time Time Spent with patient: 15-24 minutes Medications reviewed and adjusted accordingly: Yes Anticipated discharge: Home - when medically stable - Inpatient Certification Based on my medical assessment, after consideration of the patient's comorbidities, presenting symptoms, or acuity I expect that the services needed warrant INPATIENT care.: Yes I certify that my determination is in accordance with my understanding of Medicare's requirements for reasonable and necessary INPATIENT services [42 CFR 412.3e].: Yes Medical Necessity: Need for IV Antibiotics, Risk of Complication if Not Cared For in Hospital
[2019-02-05] MEDS: CEFAZOLIN 2 GM/D5W RTU 2 GM/50 ML RTUPB IV SCH (23:52)
[2019-02-06] MEDS: OXYCODONE-ACETAMINOPHEN 5-325 MG TABLET PO PRN ×4 (00:14→22:15)
[2019-02-06] MEDS: HEPARIN SODIUM,PORCINE/D5W 25,000 UNIT/250 ML RTUINJ IV PRN (03:46)
[2019-02-06] MEDS: ALBUTEROL SULFATE HFA (90 MCG/PUFF) 200 PUFF/8.5 GM MDI IH PRN (04:52)
[2019-02-06] MEDS: MORPHINE SULFATE 10 MG/ML INJ IV PRN ×4 (04:52→23:07)
[2019-02-06 05:44] LABS: ALANINE AMINOTRANSFERASE 17 U/L (9-52); ALBUMIN 3.3 g/dL (3.5-5.0); ALKALINE PHOSPHATASE 92 U/L (38-126); ANION GAP 10 (5-19); ASPARTATE AMINO TRANSFERASE 16 U/L (14-36); BILIRUBIN,DIRECT 0.3 mg/dL (0.0-0.4); BILIRUBIN,TOTAL 0.4 mg/dL (0.2-1.3); BLOOD UREA NITROGEN 5 mg/dL (7-20); CALCIUM 8.7 mg/dL (8.4-10.2); CARBON DIOXIDE 31 mmol/L (22-30); CHLORIDE 95 mmol/L (98-107); GLUCOSE 207 mg/dL (75-110); POTASSIUM 3.1 mmol/L (3.6-5.0); SODIUM 135.5 mmol/L (137-145)
[2019-02-06] MEDS: TOPIRAMATE 25 MG TABLET PO SCH ×3 (05:57→22:17)
[2019-02-06] MEDS: NORTRIPTYLINE HCL 25 MG CAPSULE PO SCH ×3 (05:58→22:17)
[2019-02-06] MEDS: CEFAZOLIN 2 GM/D5W RTU 2 GM/50 ML RTUPB IV SCH ×3 (05:58→22:27)
[2019-02-06] MEDS: GABAPENTIN 300 MG CAPSULE PO SCH ×3 (05:58→22:15)
[2019-02-06] MEDS: PANTOPRAZOLE SODIUM 20 MG TABLET.DR PO SCH (08:07)
[2019-02-06] MEDS ORDERED: POTASSIUM CHLORIDE 10 MEQ CAPSULE.ER PO ONE (08:22)
[2019-02-06] MEDS: MESALAMINE 400 MG CAPSULE.DR PO SCH ×3 (09:06→17:04)
[2019-02-06] MEDS: IBUPROFEN 800 MG TABLET PO PRN ×2 (09:15→17:11)
[2019-02-06] MEDS: FAMOTIDINE 20 MG TABLET PO SCH ×2 (09:16→22:15)
[2019-02-06] MEDS: FLUCONAZOLE 100 MG TABLET PO SCH (09:16)
[2019-02-06] MEDS: DULOXETINE HCL 30 MG CAPSULE.DR PO SCH (09:16)
[2019-02-06] MEDS: NORMAL SALINE 10 ML SDV (SCHEDULED) IV SCH ×2 (09:17→22:16)
[2019-02-06] MEDS: NYSTATIN/DEXAMETH/DIPHEN SUSP 120 ML PO SCH ×4 (09:18→22:16)
--- NOTE | 2019-02-06 13:39 | PDOC PROGRESS REPORT ---
Subjective Progress Note for:: 02/06/19 Subjective:: GIOVANNI GROVE is a 38 year old female patient with past medical history of super morbid obesity with BMI of 79.9, and anxiety disorder, chronic pain and idiopathic bilateral lymphedema and type 2 diabetes mellitus presents with chief complaint of fever, diarrhea headache and generalized body ache of 1 day duration. Patient has been in her usual baseline state of health up until yesterday when she develops the above-mentioned complaints. Of note patient has had recurrent cellulitis of both legs prominently the left leg. Patient has nausea but denies any vomiting. She has headache but no dizziness, blurring of vision or any seizure activity. Her blood work shows market leukocytosis of 29,000 and lactic acid two 3.1. Patient has been started empirically on cefepime and vancomycin and referred to the hospitalist service for admission. 01/06/2019: This morning I seen patient sitting up on recliner. She is awake alert oriented. Patient complains of her left leg is swollen and warm compared to the right side. She has been on vancomycin until yesterday when it is switched to cefazolin only as recommended by infectious disease specialist Dr. Paresh reese. Of note patient has underlying chronic bilateral lymphedema and history of recurrent cellulitis. Venous Doppler study is negative for DVT for both left and right leg. Reason For Visit: CELLULITIS,SEPSIS Physical Exam Vital Signs: Temp Pulse Resp BP Pulse Ox 97.4 F 95 16 120/73 95 02/06/19 12:02 02/06/19 12:02 02/06/19 12:02 02/06/19 12:02 02/06/19 12:02 Intake & Output 02/05/19 02/06/19 02/07/19 06:59 06:59 06:59 Intake Total 3810 2685 Output Total 1999 1200 Balance 1810 1485 Weight 203.1 kg 203.1 kg General appearance: PRESENT: no acute distress Head exam: PRESENT: atraumatic Eye exam: PRESENT: conjunctiva pink Mouth exam: PRESENT: moist Neck exam: ABSENT: carotid bruit, JVD, lymphadenopathy, thyromegaly Respiratory exam: PRESENT: clear to auscultation zahira. ABSENT: rales, rhonchi, wheezes Cardiovascular exam: PRESENT: RRR. ABSENT: diastolic murmur, rubs, systolic murmur GI/Abdominal exam: PRESENT: normal bowel sounds, soft. ABSENT: distended, guarding, mass, organolmegaly, rebound, tenderness Extremities exam: PRESENT: other - Chronic bilateral lymphedema with superimposed cellulitis of left leg Results Laboratory Results: 02/05/19 17:00 02/06/19 04:45 02/05/19 02/05/19 02/06/19 13:15 17:00 04:45 WBC 13.3 H RBC 3.66 L Hgb 10.1 L Hct 31.2 L MCV 85 MCH 27.7 MCHC 32.5 RDW 15.1 H Plt Count 468 H Sodium 135.5 L Potassium 3.1 L Chloride 95 L Carbon Dioxide 31 H Anion Gap 10 BUN 5 L Creatinine 0.84 Est GFR ( Amer) > 60 Est GFR (Non-Af Amer) > 60 Glucose 207 H Calcium 8.7 Total Bilirubin 0.4 AST 16 ALT 17 Alkaline Phosphatase 92 Total Protein 7.0 Albumin 3.3 L Urine Color YELLOW Urine Appearance SLIGHTLY-CLOUDY Urine pH 7.0 Ur Specific Murray 1.010 Urine Protein NEGATIVE Urine Glucose (UA) NEGATIVE Urine Ketones NEGATIVE Urine Blood SMALL H Urine Nitrite NEGATIVE Ur Leukocyte Esterase NEGATIVE Urine WBC (Auto) 5 Urine RBC (Auto) 5 Impressions: Guidance Fluoroscopy 02/02/19 00:00 IMPRESSION: SUCCESSFUL PLACEMENT OF A 5 FR DUAL LUMEN 43 CM PICC IN THE RIGHT BASILIC VEIN. Interventional Vascular Procedure 02/02/19 00:00 IMPRESSION: SUCCESSFUL PLACEMENT OF A 5 FR DUAL LUMEN 43 CM PICC IN THE RIGHT BASILIC VEIN. Chest X-Ray 02/02/19 10:25 IMPRESSION: NO SIGNIFICANT RADIOGRAPHIC FINDING IN THE CHEST. PICC Line Insertion 02/02/19 13:50 IMPRESSION: SUCCESSFUL PLACEMENT OF A 5 FR DUAL LUMEN 43 CM PICC IN THE RIGHT BASILIC VEIN. Assessment and Plan - Diagnosis (1) Sepsis Is this a current diagnosis for this admission?: Yes Plan: Has resolved (2) Left leg cellulitis Is this a current diagnosis for this admission?: Yes Plan: Get worse (3) Chronic acquired lymphedema Is this a current diagnosis for this admission?: Yes Plan: Worsening edema today Patient complains of "feeling like my leg will burst open" Attempted IV lasix but did not offer much relief Will attempt to wrap lower extremity with DIONICIO bandage (typical treatment done th ree times per week as outpatient) Initiated heparin gtt for possible DVT. Clinical diagnosis based on her worsening calf pain, risk factors for DVT and (+) D-dimer. Consulted Dr. Judd Stephens today, appreciate recommendations Follow-up with her primary physician and lymphedema clinic at discharge (4) Type 2 diabetes mellitus Is this a current diagnosis for this admission?: No Plan: Hgb A1c 6.0% Hold home dose Metformin Accuchecks have been normal x 48 hours Patient states she is not diabetic, she is on metformin "as a preventative measure" (5) Morbid obesity Is this a current diagnosis for this admission?: Yes Plan: Management with dietary control
[2019-02-06] MEDS: HEPARIN SOD (PORCINE) 5,000 UNIT/ML 1 ML SYRINGE SUBCUT SCH ×2 (13:53→22:16)
[2019-02-06] MEDS: ONDANSETRON HCL INJ/PF 4 MG/2 ML SDV IV PRN (14:35)
[2019-02-06] MEDS: NORMAL SALINE 10 ML SDV (AFTER EACH USE) IV PRN ×2 (15:59→17:12)
[2019-02-06 16:38] LABS: HEMATOCRIT 29.9 % (36.0-47.0); HEMOGLOBIN 9.6 g/dL (12.0-15.5); MEAN CORPUSCULAR HEMOGLOBIN 27.4 pg (27.0-33.4); MEAN CORPUSCULAR HGB CONC 32.1 g/dL (32.0-36.0); MEAN CORPUSCULAR VOLUME 85 fl (80-97); PLATELET COUNT 438 10^3/uL (150-450); RED CELL DISTRIBUTION WIDTH 15.2 % (11.5-14.0); WHITE BLOOD COUNT 11.1 10^3/uL (4.0-10.5)
--- NOTE | 2019-02-06 16:54 | PDOC CONSULTATION ---
Consultation Consult Date: 02/06/19 Provider Consulted: MATEO UGALDE Consult reason:: Severe lymphedema, sepsis cellulitis. History of Present Illness Admission Date/PCP: 01/29/19 13:17 JOHN RUIZ MD Patient complains of: Leg swelling and pain on the left. History of Present Illness: GIOVANNI GROVE is a 38 year old female On the left. Present for about 2 weeks. Prior episodes but not as bad. Patient is recently enrolled in a program for lymphedema massage and wraps. She has not engaged in one for several years. She has had leg swelling, lymphedema for about 17 years. Past Medical History Cardiac Medical History: Denies: Congestive Heart Failure, Coronary Artery Disease, DVT, Myocardial Infarction, Hyperlipidema, Hypertension, Pulmonary Embolism Pulmonary Medical History: Reports: Asthma Denies: Bronchitis, Chronic Obstructive Pulmonary Disease (COPD), Pneumonia, Sleep Apnea Neurological Medical History: Denies: Seizures Endocrine Medical History: Reports: Diabetes Mellitus Type 2 Denies: Diabetes Mellitus Type 1, Hyperthyroidism, Hypothyroidism GI Medical History: Reports: Gastroesophageal Reflux Disease Denies: Cirrhosis, Hepatitis Musculoskeltal Medical History: Reports: Arthritis - Chronic back pain Skin Medical History: Reports: Psoriasis - Mild, primarily left lower extremity Psychiatric Medical History: Reports: Depression Hematology: Denies: Anemia Infectious Medical History: Denies: Clostridium Difficile, Methicillin-Resistant Staph Aureus Past Surgical History Past Surgical History: Reports: Section - 2, Cholecystectomy, Orthopedic Surgery - Foot surgery 2 Denies: Hysterectomy Social History Smoking Status: Never Smoker Frequency of Alcohol Use: None Hx Recreational Drug Use: No Drugs: None Hx Prescription Drug Abuse: No - Advance Directive Resuscitation Status: Full Code Family History Family History: COPD, Hypertension Parental Family History Reviewed: No Children Family History Reviewed: No Sibling(s) Family History Reviewed.: No Medication/Allergy Home Medications: Albuterol Sulfate [Proair HFA] 2 puff IH Q6HP PRN 02/17/17 Atorvastatin Calcium [Lipitor 40 mg Tablet] 40 mg PO QHS 02/17/17 Gabapentin [Neurontin 400 mg Capsule] 1,200 mg PO Q8 02/17/17 Nortriptyline HCl [Pamelor 25 mg Capsule] 25 mg PO Q8 02/17/17 Pantoprazole Sodium [Protonix] 20 mg PO QAM 02/17/17 Topiramate [Topamax 25 mg Tablet] 25 mg PO Q8 02/17/17 Zolpidem Tartrate [Ambien Cr] 12.5 mg PO QHS 02/17/17 Duloxetine HCl [Cymbalta] 60 mg PO DAILY 01/29/19 Metformin HCl [Glucophage 500 mg Tablet] 500 mg PO DAILY 01/29/19 Mesalamine [Asacol Sr 400 mg Capsule] 400 mg PO TID 01/30/19 Allergies/Adverse Reactions: doxycycline Adverse Reaction (Unknown, Verified 01/29/19 10:18) Physical Exam Vital Signs: Temp Pulse Resp BP Pulse Ox 97.9 F 69 18 115/55 L 93 02/06/19 15:31 02/06/19 15:31 02/06/19 15:31 02/06/19 15:31 02/06/19 15:31 Intake & Output 02/05/19 02/06/19 02/07/19 06:59 06:59 06:59 Intake Total 3810 2735 888 Output Total 2000 1200 Balance 1810 1535 888 Weight 203.1 kg 203.1 kg Additional comments: Constitutional: Well-developed well-nourished lady, super morbidly obese. No apparent acute distress. Eyes: Mucous membranes pale and moist, pupils equal and reactive to light. Conjunctiva normal. Cornea normal. ENT: Hearing grossly normal. External pinna normal to inspection. Teeth intact. Tongue normal to inspection. Cardiac: Heart sounds 1 and 2 normal, no murmurs. No carotid bruit. Respiratory: breath sounds are present bilaterally, normal. Slight respiratory effort at minimal exertion. Skin: Scars of surgery on the left noted. Massive lymphedema with thickened skin bilaterally. Erythema with slight induration of the left. Incipient ulce ration on the left. Hyperpigmentation. Psychiatric: Judgment, memory, insight seem normal. Mood is pleasant and appropriate. Extremities: Upper extremities show normal range of movement. Pulses present noted to the radial arteries. Capillary refill normal. No cyanosis noted. No muscle wasting noted. Lower extremities show much reduced range of movement, secondary to stage IV lymphedema. Pulses hard to feel at the dorsalis pedis artery. Capillary refill normal. No cyanosis noted. No muscle wasting noted. Results Laboratory Results: 02/06/19 15:15 02/06/19 04:45 02/05/19 02/06/19 02/06/19 17:00 04:45 15:15 WBC 13.3 H 11.1 H RBC 3.66 L 3.50 L Hgb 10.1 L 9.6 L Hct 31.2 L 29.9 L MCV 85 85 MCH 27.7 27.4 MCHC 32.5 32.1 RDW 15.1 H 15.2 H Plt Count 468 H 438 Sodium 135.5 L Potassium 3.1 L Chloride 95 L Carbon Dioxide 31 H Anion Gap 10 BUN 5 L Creatinine 0.84 Est GFR ( Amer) > 60 Est GFR (Non-Af Amer) > 60 Glucose 207 H Calcium 8.7 Total Bilirubin 0.4 AST 16 ALT 17 Alkaline Phosphatase 92 Total Protein 7.0 Albumin 3.3 L Impressions: Guidance Fluoroscopy 02/02/19 00:00 IMPRESSION: SUCCESSFUL PLACEMENT OF A 5 FR DUAL LUMEN 43 CM PICC IN THE RIGHT BASILIC VEIN. Interventional Vascular Procedure 02/02/19 00:00 IMPRESSION: SUCCESSFUL PLACEMENT OF A 5 FR DUAL LUMEN 43 CM PICC IN THE RIGHT BASILIC VEIN. Chest X-Ray 02/02/19 10:25 IMPRESSION: NO SIGNIFICANT RADIOGRAPHIC FINDING IN THE CHEST. PICC Line Insertion 02/02/19 13:50 IMPRESSION: SUCCESSFUL PLACEMENT OF A 5 FR DUAL LUMEN 43 CM PICC IN THE RIGHT BASILIC VEIN. Assessment & Plan - Diagnosis (1) Left leg cellulitis Is this a current diagnosis for this admission?: Yes (2) Chronic acquired lymphedema Is this a current diagnosis for this admission?: Yes (3) Morbid obesity Is this a current diagnosis for this admission?: Yes (4) Type 2 diabetes mellitus Is this a current diagnosis for this admission?: No - Plan Summary Plan Summary: This patient has severe, advanced bilateral lower extremity lymphedema with infection due to cellulitis. She is appropriately treated with with IV antibiotic. Wraps and leg compression are absolutely mandatory in order to have any hope of conquering this difficult to treat cellulitis. I have encouraged the patient to be involved in her own lymphedema massage and wraps. She has a good understanding of what this entails from her previous experiences. Long-term compression with a sequential compression pump would be ideal. Finding an appropriate fit is challenging given her body mass index. Given her additional comorbidities she may be a candidate for bariatric therapy. She has several obesity related related comorbidities at her young age. I will be happy to be involved in her care if needed currently the above advice is about all that can be offered. Certainly no surgical intervention is indicated. Thank you for the courtesy of this consultation.
[2019-02-07] MEDS: OXYCODONE-ACETAMINOPHEN 5-325 MG TABLET PO PRN ×2 (04:30→08:37)
[2019-02-07] MEDS: TOPIRAMATE 25 MG TABLET PO SCH (05:33)
[2019-02-07] MEDS: GABAPENTIN 300 MG CAPSULE PO SCH (05:33)
[2019-02-07] MEDS: NORTRIPTYLINE HCL 25 MG CAPSULE PO SCH (05:34)
[2019-02-07] MEDS: HEPARIN SOD (PORCINE) 5,000 UNIT/ML 1 ML SYRINGE SUBCUT SCH (05:34)
[2019-02-07] MEDS: CEFAZOLIN 2 GM/D5W RTU 2 GM/50 ML RTUPB IV SCH (05:35)
[2019-02-07] MEDS: MORPHINE SULFATE 10 MG/ML INJ IV PRN (05:55)
[2019-02-07 06:34] LABS: HEMATOCRIT 29.5 % (36.0-47.0); HEMOGLOBIN 9.8 g/dL (12.0-15.5); MEAN CORPUSCULAR HEMOGLOBIN 28.4 pg (27.0-33.4); MEAN CORPUSCULAR HGB CONC 33.2 g/dL (32.0-36.0); MEAN CORPUSCULAR VOLUME 86 fl (80-97); PLATELET COUNT 463 10^3/uL (150-450); RED BLOOD COUNT 3.44 10^6/uL (3.72-5.28); RED CELL DISTRIBUTION WIDTH 15.1 % (11.5-14.0)
[2019-02-07 06:51] LABS: ANION GAP 8 (5-19); BLOOD UREA NITROGEN 8 mg/dL (7-20); CALCIUM 8.6 mg/dL (8.4-10.2); CARBON DIOXIDE 31 mmol/L (22-30); CHLORIDE 98 mmol/L (98-107); GLUCOSE 111 mg/dL (75-110); POTASSIUM 3.9 mmol/L (3.6-5.0); SODIUM 136.8 mmol/L (137-145)
[2019-02-07] MEDS: PANTOPRAZOLE SODIUM 20 MG TABLET.DR PO SCH (08:30)
--- NOTE | 2019-02-07 08:30 | PDOC DISCHARGE SUMMARY ---
General - Admit/Disc Date/PCP Admission Date/Primary Care Provider: 01/29/19 13:17 JOHN RUIZ MD Discharge Date: 02/07/19 - Discharge Diagnosis (1) Sepsis Is this a current diagnosis for this admission?: Yes (2) Left leg cellulitis Is this a current diagnosis for this admission?: Yes (3) Chronic acquired lymphedema Is this a current diagnosis for this admission?: Yes (4) Type 2 diabetes mellitus Is this a current diagnosis for this admission?: No (5) Morbid obesity Is this a current diagnosis for this admission?: Yes - Additional Information Resuscitation Status: Full Code Home Medications: Albuterol Sulfate [Proair HFA] 2 puff IH Q6HP PRN 02/17/17 Atorvastatin Calcium [Lipitor 40 mg Tablet] 40 mg PO QHS 02/17/17 Gabapentin [Neurontin 400 mg Capsule] 1,200 mg PO Q8 02/17/17 Nortriptyline HCl [Pamelor 25 mg Capsule] 25 mg PO Q8 02/17/17 Pantoprazole Sodium [Protonix] 20 mg PO QAM 02/17/17 Topiramate [Topamax 25 mg Tablet] 25 mg PO Q8 02/17/17 Zolpidem Tartrate [Ambien Cr] 12.5 mg PO QHS 02/17/17 Duloxetine HCl [Cymbalta] 60 mg PO DAILY 01/29/19 Metformin HCl [Glucophage 500 mg Tablet] 500 mg PO DAILY 01/29/19 Mesalamine [Asacol Sr 400 mg Capsule] 400 mg PO TID 01/30/19 History of Present Illness History of Present Illness: GIOVANNI GROVE is a 38 year old female patient with past medical history of super morbid obesity with BMI of 79.9, and anxiety disorder, chronic pain and idiopathic bilateral lymphedema and type 2 diabetes mellitus presents with chief complaint of fever, diarrhea headache and generalized body ache of 1 day duration. Patient has been in her usual baseline state of health up until yesterday when she develops the above-mentioned complaints. Of note patient has had recurrent cellulitis of both legs prominently the left leg. Patient has nausea but denies any vomiting. She has headache but no dizziness, blurring of vision or any seizure activity. Her blood work shows market leukocytosis of 29,000 and lactic acid two 3.1. Patient has been started empirically on cefepime and vancomycin and referred to the hospitalist service for admission. Hospital Course Hospital Course: GIOVANNI GROVE is a 38 year old female patient with past medical history of super morbid obesity with BMI of 79.9, and anxiety disorder, chronic pain and idiopathic bilateral lymphedema and type 2 diabetes mellitus presents with chief complaint of fever, diarrhea headache and generalized body ache of 1 day duration. Patient has been in her usual baseline state of health up until yesterday when she develops the above-mentioned complaints. Of note patient has had recurrent cellulitis of both legs prominently the left leg. Patient has nausea but denies any vomiting. She has headache but no dizziness, blurring of vision or any seizure activity. Her blood work shows market leukocytosis of 29,000 and lactic acid two 3.1. Patient has been started empirically on cefepime and vancomycin and referred to the hospitalist service for admission. 02/06/2019: This morning I seen patient sitting up on recliner. She is awake alert oriented. Patient complains of her left leg is swollen and warm compared to the right side. She has been on vancomycin until yesterday when it is switched to cefazolin only as recommended by infectious disease specialist Dr. Paresh reese. Of note patient has underlying chronic bilateral lymphedema and history of recurrent cellulitis. Venous Doppler study is negative for DVT for both left and right leg. 02/07/2019: This morning patient seen resting in bed comfortably. Her legs seems relatively better today. Yesterday she was seen by Dr. Stephens vascular surgeon who encourage the patient to be involved in her own lymphedema massage and wraps. Her vitals and blood works are stable. I will send her home with Keflex and I will continue the rest of her home medications. And patient advised to see her primary care physician in 1 week. Physical Exam Vital Signs: Temp Pulse Resp BP Pulse Ox 97.7 F 87 20 126/74 H 98 02/06/19 23:59 02/06/19 23:59 02/06/19 23:59 02/06/19 23:59 02/06/19 23:59 Intake & Output 02/06/19 02/07/19 02/08/19 06:59 06:59 06:59 Intake Total 2735 2682 Output Total 1200 Balance 1535 2682 Weight 203.1 kg 207.3 kg General appearance: PRESENT: morbidly obese Head exam: PRESENT: atraumatic Neck exam: ABSENT: carotid bruit, JVD, lymphadenopathy, thyromegaly Respiratory exam: PRESENT: clear to auscultation zahira. ABSENT: rales, rhonchi, wheezes GI/Abdominal exam: PRESENT: normal bowel sounds, soft. ABSENT: distended, guarding, mass, organolmegaly, rebound, tenderness Neurological exam: PRESENT: alert, awake, oriented to person, oriented to place, oriented to time, oriented to situation Psychiatric exam: PRESENT: normal mood Results Laboratory Results: 02/07/19 05:35 02/07/19 05:35 02/06/19 02/07/19 02/07/19 15:15 05:35 05:35 WBC 11.1 H 10.0 RBC 3.50 L 3.44 L Hgb 9.6 L 9.8 L Hct 29.9 L 29.5 L MCV 85 86 MCH 27.4 28.4 MCHC 32.1 33.2 RDW 15.2 H 15.1 H Plt Count 438 463 H Sodium 136.8 L Potassium 3.9 Chloride 98 Carbon Dioxide 31 H Anion Gap 8 BUN 8 Creatinine 0.78 Est GFR ( Amer) > 60 Est GFR (Non-Af Amer) > 60 Glucose 111 H Calcium 8.6 Impressions: Guidance Fluoroscopy 02/02/19 00:00 IMPRESSION: SUCCESSFUL PLACEMENT OF A 5 FR DUAL LUMEN 43 CM PICC IN THE RIGHT BASILIC VEIN. Interventional Vascular Procedure 02/02/19 00:00 IMPRESSION: SUCCESSFUL PLACEMENT OF A 5 FR DUAL LUMEN 43 CM PICC IN THE RIGHT BASILIC VEIN. Chest X-Ray 02/02/19 10:25 IMPRESSION: NO SIGNIFICANT RADIOGRAPHIC FINDING IN THE CHEST. PICC Line Insertion 02/02/19 13:50 IMPRESSION: SUCCESSFUL PLACEMENT OF A 5 FR DUAL LUMEN 43 CM PICC IN THE RIGHT BASILIC VEIN. Qualifiers - * PATIENT BEING DISCHARGED WITH ANY OF THE FOLLOWING DIAGNOSIS: No Acute Heart Failure - Is this a Heart Failure Patient?: No LVEF < 40%?: No- if no continue to question #3 3. Anticoagulant therapy for permanect/persistent/paraoxysmal Afib or Aflutter: N/A Follow-up Appointment scheduled within 7 days?: Yes
[2019-02-07 09:36] VITALS: BP 132/82
[2019-02-07] MEDS: MESALAMINE 400 MG CAPSULE.DR PO SCH (10:17)
[2019-02-07] MEDS: NORMAL SALINE 10 ML SDV (SCHEDULED) IV SCH (10:18)
[2019-02-07] MEDS: FAMOTIDINE 20 MG TABLET PO SCH (10:48)
[2019-02-07] MEDS: DULOXETINE HCL 30 MG CAPSULE.DR PO SCH (10:48)
[2019-02-07] MEDS: NYSTATIN/DEXAMETH/DIPHEN SUSP 120 ML PO SCH (10:48)
== END 2019-02-07 11:56 | disposition home or self-care (01) | DRG 872 ==
LOC: ER 10:16 → UNDOADMIN 13:17 → EH 13:17 → 2N 15:06 → 4N 02-01 05:32
PROVIDERS: ADMIT Internal Medicine; ATTEND Internal Medicine
PROC: 02HV33Z Insertion of Infusion Device into Superior Vena Cava, Percutaneous Approach (ICD-10-PCS; principal; 2019-02-02)
DX: A41.9 Sepsis, unspecified organism (principal); Z68.45 Body mass index [BMI] 70 or greater, adult; L03.116 Cellulitis of left lower limb; N39.0 Urinary tract infection, site not specified; E66.01 Morbid (severe) obesity due to excess calories; E11.9 Type 2 diabetes mellitus without complications; J45.909 Unspecified asthma, uncomplicated; K21.9 Gastro-esophageal reflux disease without esophagitis; M54.9 Dorsalgia, unspecified; G89.29 Other chronic pain; L40.9 Psoriasis, unspecified; F32.9 Major depressive disorder, single episode, unspecified; L81.9 Disorder of pigmentation, unspecified; F41.9 Anxiety disorder, unspecified; I87.8 Other specified disorders of veins; B96.20 Unspecified Escherichia coli [E. coli] as the cause of diseases classified elsewhere; M19.90 Unspecified osteoarthritis, unspecified site; Q82.0 Hereditary lymphedema; R44.1 Visual hallucinations; T81.30XD Disruption of wound, unspecified, subsequent encounter; Z79.84 Long term (current) use of oral hypoglycemic drugs; Z88.1 Allergy status to other antibiotic agents; Z83.6 Family history of other diseases of the respiratory system
CPT/HCPCS: 36415; 36569; 71045; 76937; 77001; 80048; 80053; 80061; 80202; 81001; 82565; 82607; 82962; 83036; 83605; 83735; 84100; 84443; 84703; 85025; 85027; 85379; 85610; 85730; 87040; 87086; 87088; 87186; 93971; 96361; 96365; 96367; 96375; 99285; J0295; J0690; J0696; J1642; J1644; J1650; J1885; J1940; J2270; J2405; J3370; J3490; J7030; J7050; J7060

== ENCOUNTER 2019-02-19 19:06 | Emergency (ER) | payer OTHER ==
[2019-02-19] MEDS ORDERED: FUROSEMIDE INJ/PF 20 MG/2 ML SDV IV ONE (19:37)
--- NOTE | 2019-02-19 19:56 | RADIOLOGY REPORT (SQ) ---
EXAM DESCRIPTION: CHEST SINGLE VIEW COMPLETED DATE/TIME: 02/19/2019 7:46 pm REASON FOR STUDY: respiratory distress COMPARISON: 02/02/2019 NUMBER OF VIEWS: One view. TECHNIQUE: Single frontal radiographic view of the chest acquired. LIMITATIONS: None. FINDINGS: LUNGS AND PLEURA: No opacities, masses or pneumothorax. No pleural effusion. MEDIASTINUM AND HILAR STRUCTURES: No masses or contour abnormality. HEART AND VASCULATURE: Cardiac enlargement. Vascular congestion. BONES: No acute findings. HARDWARE: None in the chest. OTHER: No other significant finding. IMPRESSION: CARDIAC ENLARGEMENT. VASCULAR CONGESTION. SUPERIMPOSED INFECTIOUS PROCESS IS NOT EXCLU DED. TECHNICAL DOCUMENTATION: JOB ID: [id number] [email or web address]- All Rights Reserved Reading location - IP/workstation name: [email or web address]
--- NOTE | 2019-02-19 19:58 | ER Document Report ---
ED General - General Chief Complaint: Breathing Difficulty Stated Complaint: DIFFICULTY BREATHING Time Seen by Provider: 02/19/19 19:21 Primary Care Provider: JOHN RUIZ MD [Primary Care Provider] - Follow up as needed Cannot obtain history due to: Unstable vital signs, Other - Respiratory distress Notes: Patient is a 38-year-old female with a past medical history of morbid obesity, chronic lymphedema, type 2 diabetes, presents by EMS due to concerns of shortness of breath, orthopnea and increasing leg swelling. Patient is in respiratory distress at time of initial assessment which does limit history. Patient does deny a history of similar symptoms in the past. Denies history of CHF. States that her shortness of breath started gradually and progressively worsened throughout the day today until she contacted EMS for assistance. States lying flat worsens her symptoms, nothing improves her symptoms. Denies fever, sputum production, or chest pain although does state that there is some heaviness and tightness to her chest. Has been unable to see her primary care doctor regarding today's concerns. TRAVEL OUTSIDE OF THE [place] IN LAST 30 DAYS: No - Related Data Allergies/Adverse Reactions: doxycycline Adverse Reaction (Unknown, Verified 01/29/19 10:18) Past Medical History - General Information source: Patient Cannot obtain history due to: Unstable vital signs - Social History Smoking Status: Never Smoker Frequency of alcohol use: None Drug Abuse: None Lives with: Family Family History: COPD, Hypertension - Past Medical History Cardiac Medical History: Denies: Hx Congestive Heart Failure, Hx Coronary Artery Disease, Hx DVT, Hx Heart Attack, Hx Hypercholesterolemia, Hx Hypertension, Hx Pulmonary Embolism Pulmonary Medical History: Reports: Hx Asthma Denies: Hx Bronchitis, Hx COPD, Hx Pneumonia, Hx Sleep Apnea Neurological Medical History: Denies: Hx Cerebrovascular Accident, Hx Seizures Endocrine Medical History: Reports: Hx Diabetes Mellitus Type 2. Denies: Hx Diabetes Mellitus Type 1, Hx Hyperthyroidism, Hx Hypothyroidism Renal/ Medical History: Denies: Hx Peritoneal Dialysis GI Medical History: Reports: Hx Gastroesophageal Reflux Disease. Denies: Hx Cirrhosis, Hx Hepatitis Musculoskeletal Medical History: Reports Hx Arthritis - Chronic back pain Skin Medical History: Reports Hx Psoriasis - Mild, primarily left lower ex tremity Psychiatric Medical History: Reports: Hx Depression Infectious Medical History: Denies: Hx C-Diff, Hx Hepatitis, Hx MRSA Past Surgical History: Reports: Hx Section - 2, Hx Cholecystectomy, Hx Orthopedic Surgery - Foot surgery 2. Denies: Hx Hysterectomy - Immunizations Hx Diphtheria, Pertussis, Tetanus Vaccination: Yes Hx Pneumococcal Vaccination: 05/22/12 Review of Systems - Review of Systems Notes: Constitutional: Negative for fever. HENT: Negative for sore throat. Eyes: Negative for visual changes. Cardiovascular: Positive chest heaviness Respiratory: Positive for shortness of breath. Gastrointestinal: Negative for abdominal pain, vomiting or diarrhea. Genitourinary: Negative for dysuria. Musculoskeletal: Negative for back pain. Skin: Negative for rash. Neurological: Negative for headaches, weakness or numbness. 10 point ROS negative except as marked above and in HPI. Physical Exam - Vital signs Vitals: Resp Pulse Ox 44 H 100 02/19/19 19:06 02/19/19 19:06 Interpretation: Hypertensive, Tachypneic Notes: PHYSICAL EXAMINATION: GENERAL: Appears unwell, in moderate respiratory distress. Patient is significantly overweight HEAD: Atraumatic, normocephalic. EYES: Pupils equal round and reactive to light, extraocular movements intact, sclera anicteric, conjunctiva are normal. ENT: nares patent, oropharynx clear without exudates. Moderately dry mucous membranes. NECK: Normal range of motion, supple without lymphadenopathy LUNGS: Coarse rales in all lung villafuerte, diminished throughout, moderate respiratory distress with tachypnea respiratory rate into the mid 30s. HEART: Regular tachycardia without murmurs ABDOMEN: Soft, morbidly obese abdomen, nontender, normoactive bowel sounds. No guarding, no rebound. No masses appreciated. EXTREMITIES: Pronounced lymphedema in the bilateral lower extremities NEUROLOGICAL: No focal neurological deficits. Moves all extremities spontaneously and on command. PSYCH: Anxious but appropriate situation SKIN: Warm, Dry, normal turgor, no rashes or lesions noted. Course - Re-evaluation Re-evalutation: 02/19/19 193 Presentation of a morbidly obese female in respiratory distress and a picture that appears most consistent with volume overload and congestive failure. Chest x-ray shows overt pulmonary edema bilaterally, vascular congestion and cardiomegaly new from a chest x-ray less than several weeks ago. Patient was immediately placed on positive pressure ventilation via BiPAP. IV diuresis has been initiated with furosemide. Very low clinical suspicion for infectious etiology given absence of fever or constitutional symptoms. Will withhold IV fluids or antibiotics at this time as I suspect that these could worsen the patient's clinical picture. Labs pending. Will continue to reassess at regular intervals. Patient will require hospitalization. 02/19/19 21:06 I did contact [facility] and request transfer but they are currently at surge capacity. I have contacted [facility] who will call me back regarding transfer. The patient does have a markedly elevated BNP, troponin is likewise elevated. Given elevated troponin and new onset CHF she will require transfer. Certainly concern for ischemic origin of her symptoms. The patient is clinically improving on BiPAP and is receiving IV diuresis. Block placed for I&O monitoring. Will continue to monitor closely. 02/19/19 21:46 Patient's work of breathing continues to improve on BiPAP. I have discussed this case with the cardiac fellow on-call working under Dr. De Oliveira at [facility]. He has accepted the patient in transfer. He agrees to management to this point but has advised to be started nitro glycerin infusion. He is aware of the blood pressure currently being at 134 on 96 but advises that the diastolic pressure is higher than ideal and has recommended starting at 30 mcg/min and pushing up to 50 mg/min the patient's blood pressure can tolerate. This will be initiated. Patient and family are understanding of care plan. 02/19/19 23:59 Patient is continued to remain hemodynamically stable. Air care transport has arrived although I did not directly request air transport from [facility]. Stable and appropriate for transport - Vital Signs Vital signs: Temp Pulse Resp BP Pulse Ox 98.1 F 98 31 H 127/78 H 98 02/19/19 23:01 02/19/19 19:09 02/19/19 23:01 02/19/19 23:01 02/19/19 23:01 - Laboratory Result Diagrams: 02/19/19 19:40 02/19/19 19:40 Laboratory results interpreted by me: 02/19/19 02/19/19 02/19/19 19:40 19:40 19:40 WBC 16.2 H RBC 3.20 L Hgb 8.7 L Hct 26.9 L RDW 15.6 H Plt Count 827 H Seg Neutrophils % 79.6 H Lymphocytes % 9.4 L Absolute Neutrophils 12.9 H Absolute Monocytes 1.5 H Sodium 134.9 L Carbon Dioxide 21 L Glucose 148 H Direct Bilirubin 0.6 H Alkaline Phosphatase 133 H NT-Pro-B Natriuret Pep 6950 H Albumin 3.4 L Urine Protein 02/19/19 19:58 WBC RBC Hgb Hct RDW Plt Count Seg Neutrophils % Lymphocytes % Absolute Neutrophils Absolute Monocytes Sodium Carbon Dioxide Glucose Direct Bilirubin Alkaline Phosphatase NT-Pro-B Natriuret Pep Albumin Urine Protein 100 H - Diagnostic Test Radiology reviewed: Image reviewed, Reports reviewed Radiology results interpreted by me: 02/20/19 00:00 Chest x-ray: Cardiomegaly, diffuse pulmonary edema - EKG Interpretation by Me Additional EKG results interpreted by me: 02/20/19 00:01 Sinus tachycardia, rate 100, no ST elevations or depressions. QTC is 465. Critical Care Note - Critical Care Note Total time excluding time spent on procedures (mins): 36 Comments: Critical care time spent obtaining history from patient or surrogate, discussions with consultants, development of treatment plan with patient or surr ogate, evaluation of patient's response to treatment, examination of patient, ordering and performing treatments and interventions, ordering and review of laboratory studies, re-evaluation of patient's condition, ordering and review of radiographic studies and review of old charts Discharge - Discharge Clinical Impression: New onset of congestive heart failure, Respiratory distress, NSTEMI (non-ST elevated myocardial infarction), Morbid obesity Pulmonary edema Qualifiers: Chronicity: acute Qualified Code(s): J81.0 - Acute pulmonary edema Condition: Fair Disposition: [facility] Referrals: JOHN RUIZ MD [Primary Care Provider] - Follow up as needed
[2019-02-19 20:05] LABS: ABSOLUTE BASOPHILS # (AUTO) 0.2 10^3/uL (0.0-0.2); ABSOLUTE LYMPHOCYTES (AUTO) 1.5 10^3/uL (0.5-4.7); ABSOLUTE MONOCYTES (AUTO) 1.5 10^3/uL (0.1-1.4); ABSOLUTE NEUT (AUTO) 12.9 10^3/uL (1.7-8.2); BASOPHILS % (AUTO) 1.3 % (0-2); EOSINOPHILS % (AUTO) 0.3 % (0-6); HEMATOCRIT 26.9 % (36.0-47.0); HEMOGLOBIN 8.7 g/dL (12.0-15.5); LYMPHOCYTES % (AUTO) 9.4 % (13-45); MEAN CORPUSCULAR HEMOGLOBIN 27.3 pg (27.0-33.4); MEAN CORPUSCULAR HGB CONC 32.5 g/dL (32.0-36.0); MEAN CORPUSCULAR VOLUME 84 fl (80-97); MONOCYTES % (AUTO) 9.4 % (3-13); PLATELET COUNT 827 10^3/uL (150-450); RED CELL DISTRIBUTION WIDTH 15.6 % (11.5-14.0); SEGMENTED NEUTROPHILS % (AUTO) 79.6 % (42-78); TOTAL CELLS COUNTED % (AUTO) 100 %; VENOUS BLOOD BASE EXCESS -3.3 mmol/L; VENOUS BLOOD HCO3 23.1 mmol/L (20-32); VENOUS BLOOD PCO2 46.1 mmHg (35-63); VENOUS BLOOD PH 7.32 (7.30-7.42); WHITE BLOOD COUNT 16.2 10^3/uL (4.0-10.5)
[2019-02-19 20:25] LABS: APPEARANCE,URINE SLIGHTLY-CLOUDY; BILIRUBIN,URINE NEGATIVE (NEGATIVE); COLOR,URINE AMBER; GLUCOSE, URINE NEGATIVE (NEGATIVE); KETONES,URINE NEGATIVE (NEGATIVE); LEUKOCYTE ESTERASE,URINE NEGATIVE (NEGATIVE); NITRITE,URINE NEGATIVE (NEGATIVE); PROTEIN,URINE 100 mg/dL (NEGATIVE); URINE SPECIFIC GRAVITY 1.033; UROBILINOGEN,URINE NEGATIVE mg/dL (<2.0)
[2019-02-19 20:30] LABS: ALANINE AMINOTRANSFERASE 21 U/L (9-52); ALBUMIN 3.4 g/dL (3.5-5.0); ALKALINE PHOSPHATASE 133 U/L (38-126); ANION GAP 12 (5-19); ASPARTATE AMINO TRANSFERASE 35 U/L (14-36); BILIRUBIN,DIRECT 0.6 mg/dL (0.0-0.4); BILIRUBIN,TOTAL 0.8 mg/dL (0.2-1.3); BLOOD UREA NITROGEN 15 mg/dL (7-20); CALCIUM 8.8 mg/dL (8.4-10.2); CARBON DIOXIDE 21 mmol/L (22-30); CHLORIDE 102 mmol/L (98-107); GLUCOSE 148 mg/dL (75-110); POTASSIUM 4.6 mmol/L (3.6-5.0); SODIUM 134.9 mmol/L (137-145)
[2019-02-19 20:44] LABS: TROPONIN I 0.145 ng/mL
[2019-02-19] MEDS ORDERED: ASPIRIN 81 MG TABLET, CHEWABLE PO ONE (21:43)
[2019-02-19] MEDS ORDERED: NITROGLYCERIN/D5W 50 MG/250 ML RTUINJ IV PRN (21:43)
[2019-02-19] MEDS ORDERED: ENOXAPARIN SODIUM INJ 150 MG/1 ML DISP.SYRIN SUBCUT SCH (22:00)
[2019-02-19 23:25] VITALS: BP 127/78
--- NOTE | 2019-02-20 00:35 | EKG REPORT ---
SEVERITY:- BORDERLINE ECG - SINUS TACHYCARDIA INFERIOR Q WAVES, PROBABLY NORMAL VARIATION : Confirmed by: Adri Calvert 20-Feb-2019 00:34:36
== END 2019-02-20 00:17 | disposition short-term general hospital (02) ==
LOC: ER 19:06
DX: I21.4 Non-ST elevation (NSTEMI) myocardial infarction (principal); I50.9 Heart failure, unspecified; R06.03 Acute respiratory distress; E66.01 Morbid (severe) obesity due to excess calories; J81.0 Acute pulmonary edema; E11.9 Type 2 diabetes mellitus without complications; Z90.710 Acquired absence of both cervix and uterus
CPT/HCPCS: 93005; 99291; 96375; 96365; 96366; 36415; 87040; 85025; 81025; 87077; 80053; 81001; 84484; 87186; 82803; 83880; 71045; 93010; 94660; J1650; J1940; J3490

== ENCOUNTER 2019-10-27 11:43 | Emergency (ER) | payer OTHER ==
--- NOTE | 2019-10-27 11:57 | ER Document Report ---
ED Medical Screen (RME) - General Chief Complaint: Shortness Of Breath Stated Complaint: SHORTNESS OF BREATH Time Seen by Provider: 10/27/19 11:52 Primary Care Provider: JOHN RUIZ MD [Primary Care Provider] - Follow up as needed Mode of Arrival: Ambulatory Information source: Patient Notes: 39-year-old female presented to ED for shortness of breath swelling to the feet legs and abdomen. She states she was diagnosed with CHF in February. She states she went to her primary care doctor on and was told she needed to come to the emergency room on it is now Tuesday. Will repeat chest x-ray and lab work and have followed with a another provider. We will also get a EKG to see if there is any changes due to the fluid. Patient is on 40 Lasix by mouth twice a day. Patient denies uses alcohol cigarettes or illicit drugs I have greeted and performed a rapid initial assessment of this patient. A comprehensive ED assessment and evaluation of the patient, analysis of test results and completion of medical decision making process will be conducted by an additional ED providers. TRAVEL OUTSIDE OF THE [place] IN LAST 30 DAYS: No - Related Data Allergies/Adverse Reactions: doxycycline Adverse Reaction (Unknown, Verified 01/29/19 10:18) Past Medical History - Past Medical History Cardiac Medical History: Denies: Hx Congestive Heart Failure, Hx Coronary Artery Disease, Hx DVT, Hx Heart Attack, Hx Hypercholesterolemia, Hx Hypertension, Hx Pulmonary Embolism Pulmonary Medical History: Reports: Hx Asthma Denies: Hx Bronchitis, Hx COPD, Hx Pneumonia, Hx Sleep Apnea Neurological Medical History: Denies: Hx Cerebrovascular Accident, Hx Seizures Endocrine Medical History: Reports: Hx Diabetes Mellitus Type 2. Denies: Hx Diabetes Mellitus Type 1, Hx Hyperthyroidism, Hx Hypothyroidism Renal/ Medical History: Denies: Hx Peritoneal Dialysis GI Medical History: Reports: Hx Gastroesophageal Reflux Disease. Denies: Hx Cirrhosis, Hx Hepatitis Musculoskeltal Medical History: Reports Hx Arthritis - Chronic back pain Skin Medical History: Reports Hx Psoriasis - Mild, primarily left lower extremity Psychiatric Medical History: Reports: Hx Depression Infectious Medical History: Denies: Hx C-Diff, Hx Hepatitis, Hx MRSA Past Surgical History: Reports: Hx Section - 2, Hx Cholecystectomy, Hx Orthopedic Surgery - Foot surgery 2. Denies: Hx Hysterectomy - Immunizations Hx Diphtheria, Pertussis, Tetanus Vaccination: Yes Physical Exam - Vital signs Vitals: Temp Pulse Resp BP Pulse Ox 97.5 F 89 20 141/87 H 99 10/27/19 11:49 10/27/19 11:49 10/27/19 11:49 10/27/19 11:49 10/27/19 11:49 Course - Vital Signs Vital signs: Temp Pulse Resp BP Pulse Ox 97.5 F 89 20 141/87 H 99 10/27/19 11:49 10/27/19 11:49 10/27/19 11:49 10/27/19 11:49 10/27/19 11:49 Doctor's Discharge - Discharge Referrals: JOHN RUIZ MD [Primary Care Provider] - Follow up as needed
--- NOTE | 2019-10-27 13:11 | RADIOLOGY REPORT (SQ) ---
EXAM DESCRIPTION: CHEST 2 VIEWS COMPLETED DATE/TIME: 10/27/2019 12:44 pm REASON FOR STUDY: Short of breath increased pedal edema history CHF COMPARISON: 02/02/2019 NUMBER OF VIEWS: Two views. TECHNIQUE: Frontal and lateral radiographic views of the chest acquired. LIMITATIONS: None. FINDINGS: LUNGS AND PLEURA: No opacities, masses or pneumothorax. No pleural effusion. MEDIASTINUM AND HILAR STRUCTURES: No masses or contour abnormality. HEART AND VASCULAR STRUCTURES: Cardiac enlargement. Vascular congestion. BONES: No acute findings. HARDWARE: None in the chest. OTHER: No other significant finding. IMPRESSION: CARDIAC ENLARGEMENT. VASCULAR CONGESTION. TECHNICAL DOCUMENTATION: JOB ID: [id number] [email or web address]- All Rights Reserved Reading location - IP/workstation name: [email or web address]
[2019-10-27] MEDS ORDERED: METOLAZONE 5 MG TABLET PO ONE (13:32)
[2019-10-27 13:33] LABS: ABSOLUTE BASOPHILS # (AUTO) 0.1 10^3/uL (0.0-0.2); ABSOLUTE EOSINOPHILS # (AUTO) 0.5 10^3/uL (0.0-0.6); ABSOLUTE MONOCYTES (AUTO) 0.6 10^3/uL (0.1-1.4); ABSOLUTE NEUT (AUTO) 5.5 10^3/uL (1.7-8.2); BASOPHILS % (AUTO) 0.7 % (0-2); EOSINOPHILS % (AUTO) 5.2 % (0-6); HEMATOCRIT 36.2 % (36.0-47.0); LYMPHOCYTES % (AUTO) 23.4 % (13-45); MEAN CORPUSCULAR HGB CONC 33.1 g/dL (32.0-36.0); MEAN CORPUSCULAR VOLUME 85 fl (80-97); MONOCYTES % (AUTO) 7.3 % (3-13); PLATELET COUNT 385 10^3/uL (150-450); RED BLOOD COUNT 4.29 10^6/uL (3.72-5.28); RED CELL DISTRIBUTION WIDTH 15.3 % (11.5-14.0); SEGMENTED NEUTROPHILS % (AUTO) 63.4 % (42-78); TOTAL CELLS COUNTED % (AUTO) 100 %; WHITE BLOOD COUNT 8.7 10^3/uL (4.0-10.5)
[2019-10-27] MEDS ORDERED: FUROSEMIDE INJ/PF 40 MG/4 ML SDV IV ONE (13:35)
[2019-10-27 13:40] LABS: ALBUMIN 3.7 g/dL (3.5-5.0); ALKALINE PHOSPHATASE 94 U/L (38-126); ANION GAP 8 (5-19); ASPARTATE AMINO TRANSFERASE 18 U/L (14-36); BILIRUBIN,DIRECT 0.2 mg/dL (0.0-0.4); BILIRUBIN,TOTAL 0.3 mg/dL (0.2-1.3); BLOOD UREA NITROGEN 10 mg/dL (7-20); CALCIUM 9.1 mg/dL (8.4-10.2); CARBON DIOXIDE 24 mmol/L (22-30); CHLORIDE 106 mmol/L (98-107); GLUCOSE 105 mg/dL (75-110); POTASSIUM 4.6 mmol/L (3.6-5.0); TOTAL PROTEIN 7.2 g/dL (6.3-8.2)
--- NOTE | 2019-10-27 14:45 | EKG REPORT ---
SEVERITY:- NORMAL ECG - SINUS RHYTHM : Confirmed by: Ede Nieto MD 27-Oct-2019 14:44:46
[2019-10-27 16:33] LABS: APPEARANCE,URINE CLEAR; BILIRUBIN,URINE NEGATIVE (NEGATIVE); COLOR,URINE STRAW; GLUCOSE, URINE NEGATIVE (NEGATIVE); KETONES,URINE NEGATIVE (NEGATIVE); PROTEIN,URINE NEGATIVE (NEGATIVE); URINE SPECIFIC GRAVITY 1.008; UROBILINOGEN,URINE NEGATIVE mg/dL (<2.0)
[2019-10-27 17:59] VITALS: BP 126/62
--- NOTE | 2019-10-28 14:32 | ER Document Report ---
Entered by CIARA MERCEDES SCRIBE 10/27/19 1315 Acting as scribe for:RENETTA SWEET MD ED Respiratory Problem - General Chief Complaint: Shortness Of Breath Stated Complaint: SHORTNESS OF BREATH Time Seen by Provider: 10/27/19 11:52 Primary Care Provider: JOHN RUIZ MD [Primary Care Provider] - Follow up as needed Mode of Arrival: Ambulatory Notes: This 39-year-old female patient presents to the emergency department today with complaints of shortness of breath, abdominal pain, and lower extremity and abdominal swelling for the last month. Patient states she has a history of lymphedema and she believes that all of her symptoms today are because of that. Patient states she saw her primary care physician earlier this past week for these same complaints and she was told that she needed to come to the emergency department for IV Lasix but she decided to wait until today. TRAVEL OUTSIDE OF THE [place] IN LAST 30 DAYS: No - Related Data Allergies/Adverse Reactions: doxycycline Adverse Reaction (Unknown, Verified 01/29/19 10:18) Home Medications: lasix Past Medical History - General Information source: Patient - Social History Smoking Status: Never Smoker Cigarette use (# per day): No Frequency of alcohol use: None Drug Abuse: None Family History: COPD, Hypertension Patient has suicidal ideation: No Patient has homicidal ideation: No Pulmonary Medical History: Reports: Hx Asthma, Hx Sleep Apnea Endocrine Medical History: Reports: Hx Diabetes Mellitus Type 2 GI Medical History: Reports: Hx Gastroesophageal Reflux Disease Musculoskeletal Medical History: Reports Hx Arthritis - Chronic back pain Skin Medical History: Reports Hx Psoriasis - Mild, primarily left lower extremity Psychiatric Medical History: Reports: Hx Depression Past Surgical History: Reports: Hx Section - 2, Hx Cholecystectomy, Hx Orthopedic Surgery - Foot surgery 2 - Immunizations Hx Diphtheria, Pertussis, Tetanus Vaccination: Yes Hx Pneumococcal Vaccination: 05/22/12 Review of Systems - Review of Systems Constitutional: No symptoms reported EENT: No symptoms reported Cardiovascular: No symptoms reported Respiratory: See HPI, Short of breath Gastrointestinal: See HPI, Abdomen distended, Abdominal pain Genitourinary: No symptoms reported Female Genitourinary: No symptoms reported Musculoskeletal: No symptoms reported Skin: No symptoms reported Hematologic/Lymphatic: No symptoms reported Neurological/Psychological: No symptoms reported -: Yes All other systems reviewed and negative Physical Exam - Vital signs Vitals: Temp Pulse Resp BP Pulse Ox 97.5 F 89 20 141/87 H 99 10/27/19 11:49 10/27/19 11:49 10/27/19 11:49 10/27/19 11:49 10/27/19 11:49 - Notes Notes: Physical Exam: General: Alert, morbidly obese. HEENT: Normocephalic. Atraumatic. PERRL. Extraocular movements intact. Oropharynx clear. Neck: Supple. Non-tender. Respiratory: Distant breath sounds due to body habitus. Clear and equal breath sounds bilaterally. Cardiovascular: Regular rate and rhythm. Abdominal: Morbidly obese. No distension. Normal Bowel Sounds. Back: No gross abnormalities. Extremities: Moves all four extremities. Upper extremities: Normal inspection. Normal ROM. Lower extremities: 4+ edema bilaterally consistent with history of lymphedema. there are a few very small blisters on both lower extremities but the legs do not appear to be infected, there is no erythema. Neurological: Normal cognition. AAOx4. Normal speech. Psychological: Normal affect. Normal Mood. Skin: Warm. Dry. Normal color. Course - Re-evaluation Re-evalutation: 10/27/19 17:08 Patient resting comfortably in no distress. Patient's saturation continues to be 100% not showing any cardiopulmonary respiratory distress. 10/27/19 17:12 Patient has diuresed over 2 L of fluid at this time. - Vital Signs Vital signs: Temp Pulse Resp BP Pulse Ox 98 F 89 15 126/62 H 94 10/27/19 18:00 10/27/19 11:49 10/27/19 17:54 10/27/19 17:54 10/27/19 17:54 - Laboratory Result Diagrams: 10/27/19 13:00 10/27/19 13:00 Laboratory results interpreted by me: 10/27/19 13:00 RDW 15.3 H - Diagnostic Test Radiology reviewed: Image reviewed, Reports reviewed Radiology results interpreted by me: 10/27/19 17:09 Chest x-ray shows cardiomegaly and some congestive vascular markings. No overt pleural fluids noted. - EKG Interpretation by Me Additional EKG results interpreted by me: 10/27/19 17:09 Twelve-lead EKG shows time today 1225 normal sinus rhythm rate of [address] changes. Discharge - Discharge Clinical Impression: Chronic acquired lymphedema, Chronic CHF Condition: Stable Disposition: HOME, SELF-CARE Additional Instructions: Congestive Heart Failure You have been diagnosed as having congestive heart failure (CHF). CHF occ urs when the heart is unable to pump blood efficiently, leading to fluid buildup in the veins and lungs. Typical symptoms are swelling of the legs, shortness of breath on minor exertion, and fatigue. CHF is treated with salt restriction, medicine to eliminate excess water and salt from the body, and medication to help the heart contract more efficiently. Eliminate added salt and salty foods in your diet. Decrease your activity until excess fluid has been eliminated. It will also be helpful to raise the head of your bed so you can sleep more easily. Keep a daily record of your weight. This will help your physician monitor your progress. Once extra water has been eliminated, light aerobic exercise daily -- such as walking -- will be helpful (unless your physician has told you to restrict activity for other reasons). Be sure to follow up with the physician as instructed. Contact the doctor at once if you worsen in any way.Lymphedema Lymphedema is edema of a limb due to lymphatic hypoplasia (primary) or to obstruction or disruption (secondary) of lymphatic vessels. Symptoms and signs are brawny, fibrous, nonpitting edema in one or more limbs. Diagnosis is by physical examination. Treatment consists of exercise, pressure gradient dressings, massage, and sometimes surgery. Cure is unusual, but treatment may lessen symptoms, slow progression, and prevent complications. Patients are at risk of cellulitis, lymphangitis, and, rarely, lymphangiosarcoma. Lymphedema may be primary (due to lymphatic hypoplasia) or secondary (due to obstruction or disruption of lymphatic vessels). Primary lymphedemas are inherited and uncommon. They vary in phenotype and patient age at presentation. Secondary lymphedema is far more common than primary. It is most commonly caused by surgery (especially lymph node dissection, typically for breast cancer), radiation therapy (especially axillary or inguinal), trauma, lymphatic obstruction by a tumor, and, in developing countries, lymphatic filariasis. Mild lymphedema may also result from leakage of lymph into interstitial tissues in patients with chronic venous insufficiency. The swelling is most often unilateral and may worsen during warm weather, before menstruation, and after a long time with the limb in a dependent position. It can affect any part of the limb (isolated proximal or distal) or the entire extremity; it can restrict range of motion when swelling is periarticular. Disability and emotional distress can be significant, especially when lymphedema results from medical or surgical treatment. Lymphangitis occurs when bacteria enter through skin cracks between the toes as a result of fungal infections or through cuts to the hand. Lymphangitis is almost always streptococcal, causing erysipelas; sometimes it is staphylococcal. The affected limb becomes red and feels hot; red streaks may extend proximally from the point of entry, and lymphadenopathy may develop. Rarely, the skin breaks down.Rarely, long-standing lymphedema leads to lymphangiosarcoma (Ozzie-Treves syndrome), usually in postmastectomy patients and in patients with filariasis. Cure is unusual once lymphedema occurs. Meticulous treatment and possibly preventive measures can lessen symptoms, slow or halt disease progression, and prevent complications. Treatment of primary lymphedema may include surgical soft-tissue reduction (removal of subcutaneous fat and fibrous tissue) and reconstruction if quality of life is significantly reduced. Treatment of secondary lymphedema involves managing its cause. For lymphedema itself, several interventions to mobilize fluid (complex decongestive therapy) can be used. They include manual lymphatic drainage, in which the limb is elevated and compressed ("milked") toward the heart; gradient pressure bandages or sleeves; limb exercises; and limb massage, including intermittent pneumatic compression. Surgical soft-tissue reduction, lymphatic reanastomoses, and formation of drainage channels are sometimes tried but have not been rigorously studied. Cellulitis and lymphangitis are treated with -lactamase-resistant antibiotics that are effective against gram-positive organisms (eg, oxacillin, cloxacillin, dicloxacillin). Referrals: JOHN RUIZ MD [Primary Care Provider] - Follow up as needed I personally performed the services described in the documentation, reviewed and edited the documentation which was dictated to the scribe in my presence, and it accurately records my words and actions.
== END 2019-10-27 18:29 | disposition home or self-care (01) ==
LOC: ER 11:43
DX: I89.0 Lymphedema, not elsewhere classified (principal); I50.9 Heart failure, unspecified; R06.02 Shortness of breath; R10.9 Unspecified abdominal pain; R14.0 Abdominal distension (gaseous); J45.909 Unspecified asthma, uncomplicated; E11.9 Type 2 diabetes mellitus without complications; E66.01 Morbid (severe) obesity due to excess calories
CPT/HCPCS: 93005; 99285; 96374; 36415; 85025; 80053; 81001; 84484; 71046; 93010; J1940; J3490